=== PATIENT | male | born 1955 | race Caucasian/White ===

== ENCOUNTER 2025-04-17 15:13 | Outpatient (CLI) | payer MEDICARE, SELFPAY ==
--- OUTSIDE RECORDS SUMMARY | 2012-08-09 02:30 | XMS_ITS | Continuity of Care Document ---
Author Organization [facility] Address [address] [place] [address] Phone Care Team Providers Care Recovery Collector Name Role Phone Demond Weiner MD Unavailable Unavailable Allergies, Adverse Reactions, Alerts Substance Reaction Status Criticality No Known allergies Medications Medication Instructions Dosage Effective Dates (start - stop) Status Comments Aspirin 81 mg Chewable Tab chew 1 tablet (81MG) by ORAL route every day 81 MG - Active Fish Oil 1,200 mg-144 mg-216 mg Cap - Active Procedures Procedure Date Office/outpatient Visit, Est Office/outpatient Visit, Est Office/outpatient Visit, New Advance Directives Directive Yes / No Effective Date File Name Resuscitation Not Answered N/A N/A Life Support Not Answered N/A N/A Intubation Not Answered N/A N/A Antibiotics Not Answered N/A N/A IV Fluid Support Not Answered N/A N/A Tube Feed Not Answered N/A N/A Other Directive N/A N/A WARNING:The information contained in this section is historical and is provided for information only and does not constitute a legal document or any assurance that the information is still accurate. Please verify the information with the teran of the legal document before using it for clinical purposes. Encounters Encounter Description Practice Location Reason(s) For Visit Diagnoses Date Provider Providers Copied on Encounter [facility]pat [facility] [address], [place], [place], [id number], [place] tel:[phone] SEC Deepak BENITES Professional No Information 3 Regine Lagos. [address], [place], [id number], . tel:[phone] Referring Provider: Demondlivier Martinezmeagandominik Penn, [address] [facility] [place], [address] . tel:[phone] [place] [facility] [place] [address] [place] [address] [address], [place], [place], [id number], tel:[phone] SEC Deepak KAMARI Professional No Information 3 Regine Lagos. [address], [facility] [place], [id number], . tel:[phone] Referring Provider: Demond Penn, [address] [place] [place], [address] . tel:[phone] Office/outpat ient Visit, [facility], [address] [place] [address] [address], [place], [place], [id number], tel:[phone] SEC Deepak KAMARI Professional VITREOUS DEGENERATION 2 Regine Lagos. [address], [facility] [place], [id number], . tel:[phone] Referring Provider: Demond Penn, [address] [place], [address] . tel:[phone] Family History Family Member Type Diagnosis Age At Onset Grandmother Problem (finding) Diabetes mellitus Mother Problem (finding) Corneal Disease Payers Payer name Insurance type Covered libertarian ID Jackypushpa fajardo(s) Narciso [id number] Social History Type Description Quantity Date Captured Comments Alcohol Use Details Unknown Caffeine Use Details Unknown Tobacco Use Status No Information Smoking Status No Information Sex Male Chief Complaint And Reason For Visit No Information Reason For Referral Reason For Referral No Information History Of Present Illness Encounter Date Complaint History Of Prese nt Illness No Information Functional Status Date Functional Assessmen t No Information Instructions Date Instruction Additional Infor mation PVD ou - knows symptoms tear/det achment - prn Vitreous Detachment, OU - vision affected - will continue to monitor - No tears or detachments seen. Signs and symptoms of RD reviewed. Discussed with pt continuing symptoms, another retina exam needed. Will monitor. Related to Vitreous Detachment - 1 month w/dilation Related to Vitreous Detachment Vitreous Detachment, OU - vision affected - will continue to monitor - Discussed dx with pt in detail. Discussed risk of retina tear. Signs and symptoms of Retinal Detachment reviewed. No treatment needed. Will monitor. Related to Vitreous Detachment - 4-6 weeks w/ dilation Related to Vitreous Detachment Assessments Type Assessment Date No Information Patient Care Teams Name Effective Dates (start - stop) Status Members No Information
--- OUTSIDE RECORDS SUMMARY | 2025-04-17 15:40 | XMS_ITS | Clinical Summary ---
Author Organization [facility] Address [address] [place] [address] Care Team Providers Care Biodiesel Production Technician Name Role Phone Jimmy Cheek MD Primary Care Provider Alexandr Shafer MD Unavailable [phone] Oscar Islas MD Unavailable [phone] Miscellaneous, Not In File Unavailable Unava ilable Allergies Active Allergy Reactions Criticality Noted Date Comments Doxycycline Isosorbide Other (See comments),Headache,N ausea only Low 03/21/2025 Shakes Eemxivw-Jxh-Vlf Reductase Inhibitors Muscle pain Medium 04/20/2017 Multiple statins including lipitor, crestor... Medications zolpidem (AMBIEN) 10 mg tabletIndications :Sleep-Onset Insomnia Take 1 tablet (10 mg total) by mouth nightly as needed for sleep 90 tablet 1 07/04/19 25 Active loratadine (CLARITIN) 10 mg tablet Take 1 tablet (10 mg total) by mouth every morning Active calcium polycarbophil (FIBER-LAX ORAL) Take 1 capsule by mouth every morning Active acetaminophen 500 mg capsule Take 2 capsules (1,000 mg total) by mouth every 6 (six) hours as needed for pain or headaches 04/11/20 25 Active amiodarone (PACERONE) 200 mg tabletIndications :Prevention of A. Fib Post Cardio-Thoracic Surgery Take 2 tablets (400 mg total) by mouth 3 (three) times a day for 5 days, THEN 2 tablets (400 mg total) 2 (two) times a day for 7 days, THEN 2 tablets (400 mg total) daily for 14 days. 86 tablet 04/11/20 25 025 Active clopidogreL (PLAVIX) 75 mg tabletIndications :Thrombosis Prevention after PCI Take 1 tablet (75 mg total) by mouth daily 30 tablet 04/13/20 25 025 Active furosemide (LASIX) 40 mg tablet Take 1 tablet (40 mg total) by mouth daily for 7 days 7 tablet 04/12/20 25 025 Active methocarbamoL (ROBAXIN) 500 mg tabletIndications :Muscle Spasm Take 1 tablet (500 mg total) by mouth 3 (three) times a day as needed for muscle spasms for up to 7 days 21 tablet 04/11/20 25 025 Active metoprolol tartrate (LOPRESSOR) 25 mg immediate release tablet Take 1 tablet (25 mg total) by mouth 2 (two) times a day 60 tablet 04/11/20 25 025 Active potassium chloride ER (KLOR-CON) 20 mEq CR tablet Take 1 tablet (20 mEq total) by mouth daily 30 tablet 04/11/20 25 025 Active apixaban (ELIQUIS) 5 mg tabletIndications :atrial fibrillation Take 1 tablet (5 mg total) by mouth 2 (two) times a day 60 tablet 04/13/20 25 025 Active omega-3 fatty acids-fish oil 340-1,000 mg capsule otc 0 0 01/24/20 10 025 Discontin ued(Stop Taking at Discharge ) aspirin 81 mg tablet take 1 tablet (81MG) by oral route every day 0 05/24/20 12 025 Discontin ued(Stop Taking at Discharge ) tadalafiL (CIALIS) 20 mg tabletIndications :Erectile dysfunction due to arterial insufficiency Take 1 tablet (20 mg total) by mouth daily as needed for erectile dysfunction 10 tablet 11 07/22/19 23 025 Discontin ued(Stop Taking at Discharge ) celecoxib (CeleBREX) 200 mg capsule Take 1 capsule (200 mg total) by mouth 2 (two) times a day Note higher dose 180 capsule 3 07/04/19 25 025 Discontin ued(Stop Taking at Discharge ) lisinopriL (PRINIVIL,ZESTRIL ) 20 mg tablet Take 1 tablet (20 mg total) by mouth daily 100 tablet 3 07/04/19 25 025 Discontin ued(Stop Taking at Discharge ) metoprolol XL (TOPROL-XL) 100 mg 24 hr tablet Take 1 tablet (100 mg total) by mouth daily 100 tablet 3 07/04/19 25 025 Discontin ued(Stop Taking at Discharge ) isosorbide mononitrate ER (IMDUR) 30 mg 24 hr tablet Take 1 tablet (30 mg total) by mouth daily 30 tablet 11 02/08/20 025 Discontin ued(Other ) Active Problems Problem Noted Date Diagnosed Date S/P CABG x 3 04/05/2025 Coronary artery disease (CAD) excluded Coronary artery disease of n ative heart with stable angina pectoris 02/28/2025 Chest pain 02/09/2025 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 02/09/2025 Hx of colonic polyps 01/03/2025 Screening for colon cancer 01/03/2025 Pre-diabetes 06/26/2022 Assessment & Plan (01/03/2025 6:35 PM CDT): Orders: Hemoglobin A1c; Future Erectile dysfunction 07/17/2021 Benign prostatic hyperplasia 01/24/2021 Overview (01/24/2021): Added automatically from request for surgery [id number] Umbilical hernia without obstruction and without gangrene 03/20/2020 Overview (03/20/2020): Added automatically from request for surgery [id number] Assessment & Plan (01/03/2025 6:35 PM CDT): Assessment & Plan (03/22/2020 2:42 PM CDT): High risk hernia with bowel involvement. We discussed the surgical procedure, along with the risks, benefits, and post operative period. We also discussed symptoms to watch out for re- incarceration/strangulation and to call office. Will set up for open umbilical hernia surgery, patient to call to schedule. History of colonic polyps 12/19/2019 Overview (12/19/2019): Added automatically from request for surgery [id number] Family history of colon cancer 12/19/2019 Overview (12/19/2019): Added automatically from request for surgery [id number] Arthralgia of hip 11/10/2013 Benign hypertension 10/29/2013 Overview (09/17/2016): BENIGN HYPERTENSION Assessment & Plan (01/03/2025 6:35 PM CDT): Assessment & Plan (10/13/2023 9:16 AM CDT): Recommend DASH diet, heart-healthy lifestyle, exercise. Discussed the risks of hypertension. Assessment & Plan (04/09/2020 9:44 AM CDT): Recommend DASH diet, heart-healthy lifestyle, exercise. Discussed the risks of hypertension. Multiple-type hyperlipidemia 10/29/2013 Overview (09/18/2016): MIXED HYPERLIPIDEMIA Assessment & Plan (01/03/2025 6:35 PM CDT): Orders: Comprehensive metabolic panel; Future Lipid panel; Future Assessment & Plan (10/13/2023 9:16 AM CDT): Counseled on heart healthy diet exercise Resolved Problems Problem Noted Date Diagnosed Date Resolved Date Acute bronchitis due to Streptococcus 06/26/2022 10/13/2023 History of 2019 novel salvador virus disease (COVID-19) 06/24/2021 10/13/2023 Bilateral lower extremity edema 04/14/2020 04/17/2020 Assessment & Plan (04/16/2020 10:34 AM SUPERVISOR FRAME ASSEMBLY): Albumin 3.8 04/10 Will get LED and TTE while inpatient, if otherwise d/c ready can be deferred to outpatient ntproBNP 1075 on 04/14 Assessment & Plan (04/15/2020 12:34 PM SUPERVISOR FRAME ASSEMBLY): Albumin 3.8 04/10 Will get LED and TTE ntproBNP 1075 on 04/14 Will give lasix 20 IV Assessment & Plan (04/14/2020 1:36 PM CDT): Albumin 3.8 04/10 Will get LED and TTE COVID-19 04/13/2020 10/13/2023 Assessment & Plan (04/17/2020 9:43 AM SUPERVISOR FRAME ASSEMBLY): Asymptomatic Will ctm Quarantine instructions provided Assessment & Plan (04/15/2020 12:33 PM SUPERVISOR FRAME ASSEMBLY): Asymptomatic Will ctm Assessment & Plan (04/14/2020 1:21 PM CDT): Asymptomatic Will ctm Assessment & Plan (04/13/2020 12:59 PM CDT): Asymptomatic Will ctm Abscess 04/10/2020 06/24/2021 Overview (04/10/2020): Added automatically from request for surgery [id number] Assessment & Plan (04/17/2020 9:43 AM SUPERVISOR FRAME ASSEMBLY): 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 on 04/16 -abx for 14d total Assessment & Plan (04/15/2020 12:32 PM SUPERVISOR FRAME ASSEMBLY): Antibiotics changed to unasyn Culture with mixed organisms Assessment & Plan (04/14/2020 1:20 PM CDT): Antibiotics changed to unasyn Culture with mixed organisms Assessment & Plan (04/13/2020 12:57 PM CDT): Antibiotics changed to unasyn Assessment & Plan (04/12/2020 12:52 PM CDT): Cont current antibiotics vanc trough tonight Hypertension, essential 04/10/2020 04/3 Overview (04/12/2020): Added automatically from request for surgery [id number] Assessment & Plan (04/16/2020 10:35 AM SUPERVISOR FRAME ASSEMBLY): Cont metop and lisinopril Assessment & Plan (04/15/2020 12:33 PM SUPERVISOR FRAME ASSEMBLY): Cont metop restart lisinopril Assessment & Plan (04/14/2020 1:20 PM CDT): Cont metop Can restart lisinopril Assessment & Plan (04/13/2020 12:58 PM CDT): Cont metop Can restart lisinopril Assessment & Plan (04/12/2020 12:53 PM CDT): Cont metop Can restart lisinopril Mandibular abscess 04/10/2020 Overview (04/12/2020): Added automatically from request for surgery [id number] Assessment & Plan (04/17/2020 9:43 AM SUPERVISOR FRAME ASSEMBLY): Appreciate ENT recs Assessment & Plan (04/15/2020 12:33 PM SUPERVISOR FRAME ASSEMBLY): Dental extractions planned for 04/16- NPO @ [place] Assessment & Plan (04/14/2020 1:21 PM CDT): Dental extractions planned for 04/16- will need to be npo at midnight Assessment & Plan (04/13/2020 12:59 PM CDT): Dental extractions planned for 04/16- will need to be npo at midnight Urinary frequency 03/22/2020 10/13/2023 Assessment & Plan (03/22/2020 2:41 PM CDT): Will send referral to urology for urinary frequency and increased night time urination. Denies hematuria Umbilical hernia without obs truction or gangrene 03/20/2020 06/24/2021 Overview (04/09/2020): Added automatically from request for surgery [id number] History of colon polyps 12/26/2019 04 Overview (12/26/2019): Added automatically from request for surgery [id number] Encounter for screening colonoscopy 12/26/2019 10/13/2023 Overview (12/26/2019): Added automatically from request for surgery [id number] Seborrheic keratosis 07/01/2018 024 Assessment & Plan (07/08/2018 3:36 PM SUPERVISOR FRAME ASSEMBLY): Biopsy sites healing well, no complications or signs of infection reported or noted on exam Pathology discussed Benign reassurance given Will return PRN Assessment & Plan (07/01/2018 11:23 AM SUPERVISOR FRAME ASSEMBLY): Right superior hairline, right inferior hairline, right lateral forehead Biopsy/ies done per procedure note. Wound care reviewed with patient. Follow-up per path. Right non-suppurative otitis media 12/10/2017 06/20/2019 Assessment & Plan (12/10/2017 11:18 AM CDT): Appears to be an early otitis media. I recommended amoxicillin twice daily for 10 day course, Flonase nasal spray to assist with the middle ear inflammation and fluid buildup along with antihistamines [id number]. Close follow-up outpatient there is any worsening or little to no improvement in his otalgia/tinnitus Adiposity 05/30/2013 10/13/2023 Overview (09/17/2016): Obesity Soft tissue lesion of shoulder region 05/17/2010 10/13/2023 Overview (09/17/2016): Bursitis/tendonitis, shoulder Encounters Date Type Department Care Team Description 04/12/2025 SERGE IP Outreach [facility] Organization [address] [place] [id number] Sandrine Schulte LPN 04/04/2025 8:05 AM CDT Anesthesia Event [facility] Operating Room [address] [place] [id number] Yuri Zapata MD Becker, Scott C 04/04/2025 8:00 AM CDT - 04/04/2025 2:00 PM CDT Surgery [facility] [address] [place] [address] Alexandr Shafer MD Coronary Artery Bypass Graft X3 04/04/2025 7:00 AM CDT Ancillary Procedure [facility] [address] [place] [address] 04/04/2025 6:06 AM CDT - 04/11/2025 4:00 PM CDT Hospital Encounter [address] [address] Alexandr Shafer MD 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 (Primary Dx); Coronary artery disease (CAD) excluded; 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; S/P CABG x 3 Discharge Disposition: Discharge to home, home health skilled care 03/21/2025 1:07 PM CDT - 03/21/2025 11:59 PM CDT Hospital Encounter [facility] Non-invasive Cardiac Diagnostic Testing [address] [place] [id number] 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 Discharge Disposition: Discharge to home or self care 03/21/2025 10:45 AM CDT Pre-Admission Testing [facility] Pre Anesthesia Testing [address] [place] [id number] Pre-op testing (Primary Dx); 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, unspecified vessel or lesion type; Shortness of breath; Other disorder of circulatory system; Chronic anticoagulation 03/21/2025 10:29 AM CDT - 03/21/2025 11:59 PM CDT Hospital Encounter [facility] Vascular Lab [address] [place] [address] Varicose veins of right lower extremity, unspecified whether complicated Discharge Disposition: Discharge to home or self care 03/21/2025 10:28 AM CDT - 03/21/2025 11:59 PM CDT Hospital Encounter [facility] [address] [place] [address] 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 [id number] [place] [address] [address] [place] [phone] Alexandr Shafer MD Coronary artery disease involving ruby coronary artery of ruby heart without angina pectoris (Primary Dx) 02/28/[address] 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 (Primary Dx); Varicose veins of right lower extremity, unspecified whether complicated 02/20/2025 11:30 AM CDT - 02/20/2025 12:35 PM CDT Surgery [facility] Cardiac Catheterization [address] [place] [address] Oscar Islas MD LEFT HEART CATHETERIZATION WITH CORONARY ANGIOGRAPHY AND WITH OR WITHOUT LEFT VENTRICULOGRAM [id number] 02/20/2025 10:28 AM CDT - 02/20/2025 3:33 PM CDT Hospital Encounter [facility] Cardiac Catheterization [address] [place] [address] Oscar Islas MD 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 (Primary Dx); Chest pain, unspecified type Discharge Disposition: Discharge to home or self care 02/10/2025 10:05 AM CDT Lab [facility] [address] [place], [place] Chest pain, unspecified type; 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 02/09/2025 Telephone [facility] [address] [facility] [address] [place] [id number] Ella Shrestha MA 02/07/2025 1:30 PM CDT Office Visit [facility] at [address] [place] [address] Oscar Islas MD 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 (Primary Dx) 02/07/2025 Orders Only [facility] at [address] [place] [phone] Oscar Islas MD Atrial fibrillation, unspecified type (HCC) (Primary Dx) from Last 3 Months Immunizations Immunization Administration Dates Next Due Influenza, Quad, Adjuvantate d, Intramuscular 04/27/2023,04/03/2021 Influenza, Quadrivalent, Melba l Culture-based MDCK, Preservative Free, Antibiotic Free, Intramuscular 04/10/2022 Influenza, Quadrivalent, Hig h Dose, Preservative Free, Intrr 03/13/2020 Influenza, Quadrivalent, Spl it, Preservative Free, Intradermal 04/28/2016,06/11/2015 Influenza, Quadrivalent, Spl it, Preservative Free, Intramuscular 03/16/2018 Influenza, Split 05/30/2013, 2,05/19/2011,05/17 Influenza, Trivalent, High D ose, Split, Preservative Free, Intramuscular 04/11/2025,03/09/2019,03/10/2017 Influenza, Trivalent, IM (MDV) 05/30/2013 Influenza, Trivalent, Recomb inant, Egg Free, Preservative Free, Antibiotic Free, IM (FLUBLOK) 06/05/2014,06/05/2014 Influenza, Unspecified 04/20/2024 Pneumococcal Conjugate Pcv20 06/29/2023 Pneumococcal, Unspecified 06/26/2022(Deferred: P atient Refused) Tdap 03/05/2009 Varicella 04/19/2017 ZOSTER Recombinant 07/25/2019,03/15/2019 Surgical History Surgery Date Site/Laterality Comments BACK SURGERY Back Surgery BACK SURGERY 06/15/1993 - 06/14/1994 Back surgery SHOULDER SURGERY 06/15/2010 - 06/14/2011 Shoulder Surgery HIP ARTHROPLASTY Right Hip replacement COLONOSCOPY 01/13/2015 - 02/12/2015 JOINT REPLACEMENT HEMORRHOID SURGERY EYE SURGERY lasik ARM SURGERY Left BRAIN SURGERY CARDIAC CATHETERIZATION 02/20/2025 N/A Procedure: LEFT HEART CATHETERIZATION WITH CORONARY ANGIOGRAPHY AND WITH OR WITHOUT LEFT VENTRICULOGRAM [id number]; Surgeon: Oscar Islas MD; Location: [facility]; Service: Cardiovascular; Laterality: N/A; CARDIAC CATHETERIZATION 02/20/2025 N/A Procedure: Coronary Flow Velocity (CFR) / Instantaneous Flow Velocity (IFR), 1st Vessel; Surgeon: Oscar Islas MD; Location: [facility]; Service: Cardiovascular; Laterality: N/A; CARDIAC CATHETERIZATION 02/20/2025 N/A Procedure: Coronary Flow Velocity (CFR) / Instantaneous Flow Velocity (IFR), Ea Addtn'l Vessel; Surgeon: Oscar Islas MD; Location: [facility]; Service: Cardiovascular; Laterality: N/A; CORONARY ARTERY BYPASS GRAFT 04/04/2025 Chest/N/A Procedure: Coronary Artery Bypass Graft X3; Surgeon: Alexandr Shafer MD; Location: OPERATING ROOM; Service: Cardiothoracic; Laterality: N/A; Medical History Medical History Date Comments Injury of head 1982 Head injury Hypertension Hypertension Hx Other Medical 2009 Rotator cuff Hx Other Medical Arm surgery Ear problems Colon polyp Hyperlipidemia Erectile dysfunction Urinary incontinence Coronary artery disease Claustrophobia BPH (benign prostatic hyperplasia) Family History Medical History Relation Name Comments Other Brother 2 Alive and well; high blood pressure Hearing loss Father Other Father Alive and well; heart disease Colon cancer Maternal Grandfather Hearing loss Maternal Grandmother Other Mother Alive and well; Cancer Other 1 Family history of Cancer; Diabetes Other 2 Family history of Diabetes mellitus; Heart disease Other 3 Family history of Heart disease; Hypertension Other 4 Family history of Hypertension; Anesthesia problems Neg Hx Relation Name Status Comments Brother 1 Alive Brother 2 Father Maternal Grandfather Maternal Grandmother Mother Other 1 Other 2 Other 3 Other 4 Other 5 familial hyperl ipidemia Social History Tobacco Use Types Packs/Day Years Used Date Smoking Tobacco: Never Smokeless Tobacco: Never Tobacco Cessation:Counseling Given: Not Answered Alcohol Use Standard Drinks/Week Comments Yes 2 (1 standard drink = 0.6 oz pur e alcohol) Social Connection and Isolation Panel Answer Date Recorded In a typical week, how many times do you talk on the phone with family, friends, or neighbors? Patient declined 04/19/2020 How often do you get togethe r with friends or relatives? Patient declined 04/19/2020 How often do you attend anglican or alevism serv ices? Patient declined 04/19/2020 Do you belong to any clubs o r organizations such as anglican groups, unions, fraternal or athletic groups, or school groups? Patient declined 04/19/2020 How often do you attend meet ings of the clubs or organizations you belong to? Patient declined 04/19/2020 Are you , , di vorced, , never , or living with a partner? 04/19/2020 Overall Financial Resource Strain (CARDIA) Answe r Date Recorded How hard is it for you to pa y for the very basics like food, housing, medical care, and heating? Not hard at all 04/19/2020 PHQ-2 Answer Date Recorded PHQ-2 Total Score (If total score is 3 or more points, staff should administer the PHQ-9) 0 01/03/2025 PRAPARE - Transportation Answer Date Re corded In the past 12 months, has l ack of transportation kept you from medical appointments or from getting medications? No 02/13 In the past 12 months, has l ack of transportation kept you from meetings, work, or from getting things needed for daily living? No 03/01/2021 Social Connection and Isolation Panel Answer Date Recorded In a typical week, how many times do you talk on the phone with family, friends, or neighbors? More than three times a week 04/06/2025 How often do you get togethe r with friends or relatives? More than three times a week 04/06/2025 How often do you attend chur ch or alevism services? Never 04/06/2025 Do you belong to any clubs o r organizations such as anglican groups, unions, fraternal or athletic groups, or school groups? No 04/06/2025 How often do you attend meet ings of the clubs or organizations you belong to? Never 04/06/2025 Are you , , di vorced, , never , or living with a partner? 04/06/2025 AUDIT-C Answer Date Recorded Q1: How often do you have a drink containing alc ohol? 2-3 times a week 04/04/2025 Q2: How many drinks containi ng alcohol do you have on a typical day when you are drinking? 1 or 2 04/04/2025 Q3: How often do you have si x or more drinks on one occasion? Monthly 04/04/2025 Overall Financial Resource Strain (CARDIA) Answe r Date Recorded How hard is it for you to pa y for the very basics like food, housing, medical care, and heating? Not hard at all 04/06/2025 Hunger Vital Sign Answer Date Recorded Within the past 12 months, y ou worried that your food would run out before you got the money to buy more. Never true 04/06/20 25 Within the past 12 months, t he food you bought just didn't last and you didn't have money to get more. Never true 04/06/2025 PRAPARE - Transportation Answer Date Re corded In the past 12 months, has l ack of transportation kept you from medical appointments or from getting medications? No 03/16 In the past 12 months, has l ack of transportation kept you from meetings, work, or from getting things needed for daily living? No 04/06/2025 Housing Stability Vital Sign Answer Ladarius e Recorded In the last 12 months, was t here a time when you were not able to pay the mortgage or rent on time? No 04/06/2025 In the past 12 months, how m any times have you moved where you were living? 0 04/06/2025 At any time in the past 12 m [facility], were you homeless or living in a long term (including now)? No 04/06/2025 [facility] Utilities Answer Date Recorded In the past 12 months has th e [email or web address], gas, oil, or water company threatened to shut off services in your home? No 04/06/2025 Personal Safety Answer Date Recorded Have you ever been in or are you currently in a harmful physical or emotional relationship or is someone making you feel afraid or unsafe? Denies 04/04/2025 Sex and Gender Information Value Date Recorded Sex Assigned at Not on file Legal Sex Male 1:43 PM [employer]PERVIS[employer] Gender Identity Not on file Sexual Orientation Not on file Last Filed Vital Signs Vital Sign Reading Time Taken Comments Blood Pressure 120/85 04/11/2025 11:49 AM CDT Pulse 93 04/11/2025 12:00 PM CDT Temperature 36.3 C (97.3 F) 04/11/2025 11:49 AM CDT Respiratory Rate 17 04/11/2025 11:4 9 AM CDT Oxygen Saturation 97% 04/11/2025 11: 49 AM CDT Inhaled Oxygen Concentration - - Weight 135.9 kg (299 lb 9.7 oz) 04/09/2025 2:35 AM CDT Height 188 cm (6' 2.02) 04/05/2025 10: 41 AM CDT Body Mass Index 38.45 04/05/2025 10:41 AM CDT Plan of Treatment Upcoming Encounters Date Type Department Care Team (Late st Contact Info) Description 08/25/2025 8:00 AM CDT Hospital Encounter [address] [address] Jeni Burns MD [address] [place] [address] [place] [address] 08/25/2025 8:00 AM CDT - 08/25/2025 8:30 AM CDT Surgery [address] [address] Jeni Burns MD [address] [facility] [address] [address] [place], [place] [address] [address] COLONOSCOPY Scheduled Procedures Name Priority Associated Diagnoses Date/Ti me COLONOSCOPY Hx of colonic polyps Screening for colon cancer 08/25/2025 8:00 AM CDT Health Maintenance Due Date Last Done Comments Hepatitis B Screening 12/16/1973 Covid-19 Vaccine ( season) 2025 04/27/2023, 04/10/2022, 05/28/2021, Additional history exists Colon Cancer Screening-Colonoscopy 02/21/2025 02/22/2020, 01/24/2015, 01/24/2015, Additional history exists Prostate Cancer Screening-PSA 06/27/2025 06/27/2024, 06/16/2023, 06/17/2022, Additional history exists Well Visit 65+ 07/04/2025 07/04/2024, 06/15, 06/26/2022, Additional history exists DTaP/Tdap/Td Vaccine (2 - Td or Tdap) 12/19/2025 03/05/2009 Postponed from 03/05/2019 (Insurance / Financial) Depression Screening 01/03/2026 01/03/2025, 07/04/2024, 10/13/2023, Additional history exists Fall Risk Assessment 04/11/2026 04/11/2025, 01/03/2025, 07/04/2024, Additional history exists Hepatitis C Screening Completed 06/01/2017, 017 Zoster Vaccine Completed 07/25/2019, 03/15/2019 Colon Cancer Screening-CT Colonography Discontinued 02/22/2020, 01/24/2015, 01/24/2015, Additional history exists Colon Cancer Screening-DNA Stool Discontinued 02/22/2020, 01/24/2015, 01/24/2015, Additional history exists Colon Cancer Screening-FIT Discontinued 02/21, 01/24/2015, 01/24/2015, Additional history exists Colon Cancer Screening-Sigmoidoscopy Discontinued 02/22/2020, 01/24/2015, 01/24/2015, Additional history exists Pneumococcal vaccine 65+ Completed 06/29/2023 Influenza Vaccine Completed 04/11/2025, , 04/27/2023, Additional history exists Medical Devices Implanted Type Area Railroad Purchasing Agent Device Identifier Shelf Expiration Date Model / Serial / Lot [employer]/C R Bard [id number] [address]ralex [address] Sepra Sorbaflex 1.7in [facility] Bioresorbable - [id number] Implanted:Qty: 1 on 07/16/2020 by Emmanuel Quiñonez MD at [facility] N/A: [employer]mb[employer]/C R 02/09/2022 [id number] / / [id number] Procedures Procedure Name Priority Date/Time Associated Diagnosis Comments POCT GLUCOSE DEVICE Routine 04/11/2025 12:30 PM CDT POCT GLUCOSE DEVICE Routine 04/11/2025 7 :38 AM CDT XR CHEST 1 VIEW IP Routine 04/11/2025 7:03 AM CDT EGFR Routine 04/11/2025 5:23 AM CDT HEPATIC FUNCTION PANEL Routine 04/11/2025 5:23 AM CDT APTT Routine 04/11/2025 5:23 AM CDT PROTIME-INR Routine 04/11/2025 5:23 AM CDT BASIC METABOLIC PANEL Routine 04/11/2025 5:23 AM CDT CBC WITHOUT DIFFERENTIAL Routine 04/11/2025 5:23 AM CDT POCT GLUCOSE DEVICE Routine 04/10/2025 8 :05 PM CDT POCT GLUCOSE DEVICE Routine 04/10/2025 5 :24 PM CDT POCT GLUCOSE DEVICE Routine 04/10/2025 12:37 PM CDT POCT GLUCOSE DEVICE Routine 04/10/2025 8 :09 AM CDT XR CHEST 1 VIEW IP Routine 04/10/2025 6:49 AM CDT EGFR Routine 04/10/2025 4:22 AM CDT MAGNESIUM Routine 04/10/2025 4:22 AM CDT BASIC METABOLIC PANEL Routine 04/10/2025 4:22 AM CDT CBC WITHOUT DIFFERENTIAL Routine 04/10/2025 4:22 AM CDT POCT GLUCOSE DEVICE Routine 04/09/2025 8 :12 PM CDT POCT GLUCOSE DEVICE Routine 04/09/2025 5 :45 PM CDT POCT GLUCOSE DEVICE Routine 04/09/2025 1 :59 PM CDT POCT GLUCOSE DEVICE Routine 04/09/2025 9 :13 AM CDT XR CHEST 1 VIEW IP Routine 04/09/2025 6:22 AM CDT EGFR Routine 04/09/2025 6:17 AM CDT MAGNESIUM Routine 04/09/2025 6:17 AM CDT BASIC METABOLIC PANEL Routine 04/09/2025 6:17 AM CDT CBC WITHOUT DIFFERENTIAL Routine 04/09/2025 6:17 AM CDT POCT GLUCOSE DEVICE Routine 04/09/2025 2 :20 AM CDT POCT GLUCOSE DEVICE Routine 04/08/2025 9 :26 PM CDT POCT GLUCOSE DEVICE Routine 04/08/2025 6 :03 PM CDT POCT GLUCOSE DEVICE Routine 04/08/2025 12:31 PM CDT POCT GLUCOSE DEVICE Routine 04/08/2025 7 :41 AM CDT XR CHEST 1 VIEW IP Routine 04/08/2025 6:40 AM CDT EGFR Routine 04/08/2025 6:11 AM CDT MAGNESIUM Routine 04/08/2025 6:11 AM CDT BASIC METABOLIC PANEL Routine 04/08/2025 6:11 AM CDT CBC WITHOUT DIFFERENTIAL Routine 04/08/2025 6:11 AM CDT POCT GLUCOSE DEVICE Routine 04/08/2025 2 :31 AM CDT POCT GLUCOSE DEVICE Routine 04/07/2025 9 :37 PM CDT POCT GLUCOSE DEVICE Routine 04/07/2025 5 :06 PM CDT POCT GLUCOSE DEVICE Routine 04/07/2025 12:41 PM CDT XR KUB IP Routine 04/07/2025 10:18 AM CDT POCT GLUCOSE DEVICE Routine 04/07/2025 7 :57 AM CDT CRITICAL CARE Routine 04/07/2025 7:25 AM CDT Coronary artery disease (CAD) excluded XR CHEST 1 VIEW IP Routine 04/07/2025 4:17 AM CDT EGFR Routine 04/07/2025 2:09 AM CDT CALCIUM,IONIZED, WHOLE BLOOD Timed 04/07/2025 2:09 AM CDT MAGNESIUM Routine 04/07/2025 2:09 AM CDT BASIC METABOLIC PANEL Routine 04/07/2025 2:09 AM CDT CBC WITHOUT DIFFERENTIAL Routine 04/07/2025 2:09 AM CDT POCT GLUCOSE DEVICE Routine 04/06/2025 8 :01 PM CDT CRITICAL CARE Routine 04/06/2025 7:34 PM CDT S/P CABG x 3 POCT GLUCOSE DEVICE Routine 04/06/2025 4 :58 PM CDT EGFR Routine 04/06/2025 2:46 PM CDT CBC WITHOUT DIFFERENTIAL Timed 04/06/2025 2:46 PM CDT CALCIUM,IONIZED, WHOLE BLOOD Timed 04/06/2025 2:46 PM CDT MAGNESIUM Timed 04/06/2025 2:46 PM CDT BASIC METABOLIC PANEL Routine 04/06/2025 2:46 PM CDT POCT GLUCOSE DEVICE Routine 04/06/2025 12:03 PM CDT CRITICAL CARE Routine 04/06/2025 9:11 AM CDT Coronary artery disease (CAD) excluded POCT GLUCOSE DEVICE Routine 04/06/2025 7 :09 AM CDT POCT GLUCOSE DEVICE Routine 04/06/2025 5 :06 AM CDT XR CHEST 1 VIEW IP Routine 04/06/2025 3:59 AM CDT EGFR Routine 04/06/2025 3:03 AM CDT MAGNESIUM Routine 04/06/2025 3:03 AM CDT BASIC METABOLIC PANEL Routine 04/06/2025 3:03 AM CDT CBC WITHOUT DIFFERENTIAL Routine 04/06/2025 3:03 AM CDT POCT GLUCOSE DEVICE Routine 04/06/2025 3 :00 AM CDT POCT GLUCOSE DEVICE Routine 04/06/2025 1 :37 AM CDT POCT GLUCOSE DEVICE Routine 04/06/2025 12:48 AM CDT POCT GLUCOSE DEVICE Routine 04/05/2025 11:42 PM CDT EGFR Routine 04/05/2025 10:47 PM CDT MAGNESIUM Routine 04/05/2025 10:47 PM CDT BASIC METABOLIC PANEL Routine 04/05/2025 10:47 PM CDT POCT GLUCOSE DEVICE Routine 04/05/2025 10:38 PM CDT POCT GLUCOSE DEVICE Routine 04/05/2025 9 :38 PM CDT POCT GLUCOSE DEVICE Routine 04/05/2025 8 :35 PM CDT CRITICAL CARE Routine 04/05/2025 7:38 PM CDT S/P CABG x 3 POCT GLUCOSE DEVICE Routine 04/05/2025 7 :34 PM CDT POCT GLUCOSE DEVICE Routine 04/05/2025 6:37 PM CDT POCT GLUCOSE DEVICE Routine 04/05/2025 5 :20 PM CDT POCT GLUCOSE DEVICE Routine 04/05/2025 4 :42 PM CDT POCT GLUCOSE DEVICE Routine 04/05/2025 3 :35 PM CDT CALCIUM,IONIZED, WHOLE BLOOD STAT 04/05/2025 2:42 PM CDT BLOOD GAS, ARTERIAL STAT 04/05/2025 2 :42 PM CDT EGFR Timed 04/05/2025 2:33 PM CDT CBC WITHOUT DIFFERENTIAL Timed 04/05/2025 2:33 PM CDT BASIC METABOLIC PANEL Timed 04/05/2025 2:33 PM CDT POCT GLUCOSE DEVICE Routine 04/05/2025 2 :24 PM CDT POCT GLUCOSE DEVICE Routine 04/05/2025 1 :21 PM CDT POCT GLUCOSE DEVICE Routine 04/05/2025 12:16 PM CDT POCT GLUCOSE DEVICE Routine 04/05/2025 11:31 AM CDT POCT GLUCOSE DEVICE Routine 04/05/2025 10:11 AM CDT CRITICAL CARE Routine 04/05/2025 9:59 AM CDT Coronary artery disease (CAD) excluded ECG 12-LEAD Routine 04/05/2025 9:17 AM CDT POCT GLUCOSE DEVICE Routine 04/05/2025 7 :20 AM CDT XR CHEST 1 VIEW IP Routine 04/05/2025 6:14 AM CDT POCT GLUCOSE DEVICE Routine 04/05/2025 6 :02 AM CDT POCT GLUCOSE DEVICE Routine 04/05/2025 5 :03 AM CDT POCT GLUCOSE DEVICE Routine 04/05/2025 3 :58 AM CDT EGFR Routine 04/05/2025 3:55 AM CDT DIFFERENTIAL AUTO Routine 04/05/2025 3:5 5 AM CDT MAGNESIUM Routine 04/05/2025 3:55 AM CDT BASIC METABOLIC PANEL Routine 04/05/2025 3:55 AM CDT CBC WITH AUTO DIFFERENTIAL Routine 04/05/2025 3:55 AM CDT POCT GLUCOSE DEVICE Routine 04/05/2025 2 :44 AM CDT POCT GLUCOSE DEVICE Routine 04/05/2025 1 :40 AM CDT POCT GLUCOSE DEVICE Routine 04/05/2025 12:28 AM CDT POCT GLUCOSE DEVICE Routine 04/04/2025 11:23 PM CDT POCT GLUCOSE DEVICE Routine 04/04/2025 10:24 PM CDT EXTUBATION Routine 04/04/2025 10:01 PM CDT BLOOD GAS, ARTERIAL STAT 04/04/2025 9 :45 PM CDT POCT GLUCOSE DEVICE Routine 04/04/2025 9 :14 PM CDT CRITICAL CARE Routine 04/04/2025 8:15 PM CDT 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 POCT GLUCOSE DEVICE Routine 04/04/2025 8 :11 PM CDT POCT GLUCOSE DEVICE Routine 04/04/2025 7 :04 PM CDT POCT GLUCOSE DEVICE Routine 04/04/2025 6 :02 PM CDT EGFR STAT 04/04/2025 5:32 PM CDT BASIC METABOLIC PANEL STAT 04/04/2025 5:32 PM CDT CALCIUM,IONIZED, WHOLE BLOOD STAT 04/04/2025 5:32 PM CDT CBC WITHOUT DIFFERENTIAL Timed 04/04/2025 5:32 PM CDT BLOOD GAS, ARTERIAL Timed 04/04/2025 5 :32 PM CDT BLOOD GAS, ARTERIAL STAT 04/04/2025 4 :31 PM CDT POCT GLUCOSE DEVICE Routine 04/04/2025 4 :17 PM CDT TRANSFUSE PLATELETS Timed 04/04/2025 3 :57 PM CDT PREPARE PLATELETS STAT 04/04/2025 2:3 9 PM CDT XR CHEST 1 VIEW Critical/Life- Threatening 04/04/2025 2:20 PM CDT MAGNESIUM STAT 04/04/2025 2:08 PM CDT CALCIUM,IONIZED, WHOLE BLOOD STAT 04/04/2025 2:08 PM CDT EGFR STAT 04/04/2025 2:06 PM CDT PHOSPHORUS STAT 04/04/2025 2:06 PM CDT APTT STAT 04/04/2025 2:06 PM CDT PROTIME-INR STAT 04/04/2025 2:06 PM CDT CBC WITHOUT DIFFERENTIAL Timed 04/04/2025 2:06 PM CDT BLOOD GAS, ARTERIAL Timed 04/04/2025 2 :06 PM CDT BASIC METABOLIC PANEL STAT 04/04/2025 2:06 PM CDT POCT GLUCOSE DEVICE Routine 04/04/2025 1 :49 PM CDT CRITICAL CARE Routine 04/04/2025 1:32 PM CDT 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 POC BLOOD GAS AND CHEMISTRIES, ARTERIAL Routine 04/04/2025 1:05 PM CDT POC BLOOD GAS AND CHEMISTRIES, ARTERIAL Routine 04/04/2025 12:20 PM CDT POCT ACTIVATED CLOTTING TIME, HIGH RANGE Routine 04/04/2025 12:19 PM CDT POC BLOOD GAS AND CHEMISTRIES, ARTERIAL Routine 04/04/2025 11:54 AM CDT POC BLOOD GAS AND CHEMISTRIES, ARTERIAL Routine 04/04/2025 11:42 AM CDT POCT ACTIVATED CLOTTING TIME, HIGH RANGE Routine 04/04/2025 11:39 AM CDT PREPARE RBC STAT 04/04/2025 11:37 AM CDT PLATELET COUNT STAT 04/04/2025 11:37 AM CDT POCT ACTIVATED CLOTTING TIME, HIGH RANGE Routine 04/04/2025 11:15 AM CDT POC BLOOD GAS AND CHEMISTRIES, ARTERIAL Routine 04/04/2025 11:00 AM CDT POC BLOOD GAS AND CHEMISTRIES, ARTERIAL Routine 04/04/2025 10:31 AM CDT POCT ACTIVATED CLOTTING TIME, HIGH RANGE Routine 04/04/2025 10:30 AM CDT ANESTHESIA CRISTA Routine 04/04/2025 10:21 AM CDT POC BLOOD GAS AND CHEMISTRIES, ARTERIAL Routine 04/04/2025 10:00 AM CDT POCT ACTIVATED CLOTTING TIME, HIGH RANGE Routine 04/04/2025 9:57 AM CDT POC BLOOD GAS AND CHEMISTRIES, ARTERIAL Routine 04/04/2025 8:35 AM CDT POCT ACTIVATED CLOTTING TIME, HIGH RANGE Routine 04/04/2025 8:32 AM CDT MD AN CENTRAL LINE MULTI LUMEN Routine 04/04/2025 8:26 AM CDT ANESTHESIA CENTRAL VENOUS LINE PLACEMENT Routine 04/04/2025 8:26 AM CDT ANESTHESIA ARTERIAL LINE PLACEMENT Routine 04/04/2025 8:23 AM CDT MD AN ELECTIVE ENDOTRACHEAL AIRWAY Routine 04/04/2025 8:22 AM CDT CORONARY ARTERY BYPASS GRAFT. 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 US VEIN MAPPING DUPLEX LOWER EXTREMITY RIGHT Schedule Routine, Read Routine (OP Routine) 03/21/2025 1:05 PM CDT Varicose veins of right lower extremity, unspecified whether complicated CT CHEST WO CONTRAST Schedule Routine, Read Routine (OP Routine) 03/21/2025 12:44 PM CDT 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 EGFR Routine 03/21/2025 12:04 PM CDT Pre-op testing DIFFERENTIAL AUTO Routine 03/21/2025 12:04 PM CDT Pre-op testing TYPE AND SCREEN Routine 03/21/2025 12:04 PM CDT Pre-op testing CBC WITH AUTO DIFFERENTIAL Routine 03/21/2025 12:04 PM CDT Pre-op testing BASIC METABOLIC PANEL Routine 03/21/2025 12:04 PM CDT Pre-op testing PROTIME-INR Routine 03/21/2025 12:04 PM CDT Pre-op testing Other disorder of circulatory system APTT Routine 03/21/2025 12:04 PM CDT Pre-op testing Chronic anticoagulation URINALYSIS AND REFLEX TO MICROSCOPIC AND CULTURE Routine 03/21/2025 12:04 PM CDT Pre-op testing ECG 12-LEAD Routine 03/21/2025 11:46 AM CDT 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, unspecified vessel or lesion type CORONARY FLOW VELOCITY (CFR) / INSTATANEOUS FLOW VELOCITY (IFR), EA ADDTN'L VESSEL Routine 02/20/2025 12:58 PM CDT Chest pain, unspecified type 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 CORONARY FLOW VELOCITY (CFR) / INSTATANEOUS FLOW VELOCITY (IFR), 1ST VESSEL Routine 02/20/2025 12:58 PM CDT Chest pain, unspecified type 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 LEFT HEART CATHETERIZATION WITH CORONARY ANGIOGRAPHY AND WITH AND WITHOUT LEFT VENTRICULOGRAM Routine 02/20/2025 12:58 PM CDT Chest pain, unspecified type 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 EGFR Routine 02/10/2025 10:07 AM CDT Chest pain, unspecified type 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 DIFFERENTIAL AUTO Routine 02/10/2025 10:07 AM CDT Chest pain, unspecified type 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 CBC WITH AUTO DIFFERENTIAL Routine 02/10/2025 10:07 AM CDT Chest pain, unspecified type 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 BASIC METABOLIC PANEL Routine 02/10/2025 10:07 AM CDT Chest pain, unspecified type 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 PROTIME-INR Routine 02/10/2025 10:07 AM CDT Chest pain, unspecified type 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 ECG 12-LEAD Routine 02/07/2025 2:01 PM CDT Atrial fibrillation, unspecified type (HCC) PSA SCREEN Routine 06/27/2024 7:52 AM [employer] Urine frequency COLONOSCOPY 02/22/2020 7:08 AM CDT HEPATITIS C AB REFLEX RNA QUANT PCR Routine 06/01/2017 7:08 AM [employer] from Last 3 Months or Most Recently Relevant to Health Maintenance Results * POCT glucose (04/11/2025 12:30 PM CDT) Glucose, POC 153 70 - 199 mg/dL Blood 04/11/2025 12:3 0 PM CDT 04/11/2025 12:30 PM CDT us Alexandr Shafer MD LAB POCT ORDERABLES - DEVICE Final Result Performing Organization Address City/[facility] Co de Phone Number DELPHINELUIS [phone] [place] [address] * POCT glucose (04/11/2025 7:38 AM CDT) Glucose, POC 118 70 - 199 mg/dL Blood 04/11/2025 7:38 AM CDT 04/11/2025 7:38 AM CDT Alexandr Shafer MD LAB POCT ORDERABLES - DEVICE Final Result Performing Organization Address City/[facility]/ZIP Co de Phone Number MICHAEL [phone] [place] [address] * XR Chest 1 View - Portable - in AM (04/11/2025 7:03 AM CDT) Anatomical Region Laterality Modality Body, Chest N/A Computed Radiogr aphy 04/11/2025 7:48 AM CDT Impressions 04/11/2025 7:48 AM CDT There is a right internal jugular central venous catheter in place with tip in the superior vena cava. The lung volumes are small with scattered areas of atelectasis. There is no definite pleural fluid collection or definite pneumothorax. The cardiomediastinal silhouette is normal in caliber. The patient has undergone prior median sternotomy. Electronically signed by: Mary Mcgraw MD Narrative 04/11/2025 7:48 AM CDT EXAMINATION: XR CHEST 1 VIEW Procedure Note Mary Mcgraw MD - 04/11/2025 EXAMINATION: XR CHEST 1 VIEW IMPRESSION: There is a right internal jugular central venous catheter in place with tip in the superior vena cava. The lung volumes are small with scattered areas of atelectasis. There is no definite pleural fluid collection or definite pneumothorax. The cardiomediastinal silhouette is normal in caliber. The patient has undergone prior median sternotomy. Electronically signed by: Mary Mcgraw MD us Alexandr Shafer MD IMG XR PROCEDURES Final Resu lt * eGFR (04/11/2025 5:23 AM CDT) eGFR 68 >=60 mL/min/1. 73 m2 Comment: Interpretive Data Reference Interval Normal >/= 90 mL/min/1.73m2 Mildly decreased* 60 - 89 mL/min/1.73m2 Mildly to moderately decreased 45 - 59 mL/min/1.73m2 Moderately to severely decreased 30 - 44 mL/min/1.73m2 Severely decreased 15 - 29 mL/min/1.73m2 Kidney Failure < 15 mL/min/1.73m2 *Relative to young adult level Estimated glomerular filtration rate is determined by the 2020 CKD-EPI equation recommended by the National Kidney Foundation (A Unifying Approach to GFR Estimation: Recommendations of the NKF-ASK Task Force on Reassessing the Inclusion of Race in Diagnosing Kidney Disease, JASN 2020). The CKD-EPI equation should not be used for patients with unstable renal function and has not been validated in children and those over 70. Current interpretive data was last reviewed 2021. Blood 04/11/2025 5:23 AM CDT 04/11/2025 5:26 AM CDT Sejal Minerva Oxford ACUPRESSURE THERAPIST LAB BLOOD ORDERABLES Final Result Performing Organization Address [facility] Co de Phone Number [facility] [phone] [facility] [place] [address] * aPTT (04/11/2025 5:23 AM CDT) aPTT 32 26 - 38 sec Comment: Interpretive Data Heparin therapeutic range: 66.0 - 100.0 seconds. Range based on correlation with therapeutic heparin activity range of 0.3 - 0.7 Units/mL. Current interpretive data was last revised on 2023. Blood 04/11/2025 5:23 AM CDT 04/11/2025 5:25 AM CDT Jamari Mo ACUPRESSURE THERAPIST LAB BLOOD ORDERABLES Final Result Performing Organization Address [facility] de Phone Number [facility] [phone] [address] [facility] [place] [address] * (ABNORMAL) Protime-INR (04/11/2025 5:23 AM CDT) PT 14.7(H) 10.2 - 13.5 sec INR 1.31(H) 0.90 - 1.20 MICHAEL Comment: Interpretive data Oral anticoagulant therapeutic ranges: Venous thromboembolism prophylaxis or treatment: 2.0-3.0 CARDIOLOGY Standard range: 2.0-3.0 High-intensity range: 2.5-3.5 Refer to indication-specific guidelines for appropriate target ranges for prosthetic heart valve replacement. Current interpretive data was last revised on 2019. Blood 04/11/2025 5:23 AM CDT 04/11/2025 5:25 AM CDT Jamari Mo ACUPRESSURE THERAPIST LAB BLOOD ORDERABLES Final Result Performing Organization Address City/[facility]/ZIP Co de Phone Number MICHAEL DILL [address] [place] [address] * (ABNORMAL) CBC without differential (04/11/2025 5:23 AM CDT) WBC 11.90(H) 3.80 - 9.90 K/cumm Hgb 9.7(L) 13.0 - 17.5 g/dL [facility] Hct 29.2(L) 38.9 - 50.3 % [facility] CH Plt 278 150 - 400 K/cumm [facility] CH MPV 9.7 9.1 - 12.3 fL [facility] CH RBC 3.07(L) 4.30 - 5.80 M/cumm [facility] CH MCV 95.1 81.3 - 96.4 fL [facility] CH MCH 31.6 27.1 - 33.3 pg [facility] CH MCHC 33.2 32.3 - 35.7 g/dL [facility] RDW CV 12.9 11.1 - 14.9 % [facility] CH RDW SD 44.8 35.7 - 48.1 fL [facility] NRBC abs 0.00 0.00 - 0.01 K/cumm [facility] Blood 04/11/2025 5:23 AM CDT 04/11/2025 5:25 AM CDT Sejal Vail ACUPRESSURE THERAPIST LAB BLOOD ORDERABLES Final Result Performing Organization Address City/[facility]/ZIP Co de Phone Number MICHAEL DILL [phone] [place] [address] * (ABNORMAL) Hepatic function panel (04/11/2025 5:23 AM CDT) Bilirubin, total 0.6 0.1 - 1.2 mg/dL Bilirubin, direct 0.2 0.1 - 0.3 mg/dL [facility] Protein, pl 6.4(L) 6.5 - 8.5 g/dL [facility] Albumin 3.2(L) 3.5 - 5.0 g/dL [facility] Alk phos 55 40 - 130 Units/L [facility] ALT 61(H) 7 - 55 Units/L [facility] AST 52(H) 10 - 50 Units/L [facility] Blood 04/11/2025 5:23 AM CDT 04/11/2025 5:26 AM CDT us Nicolette Marlow ACUPRESSURE THERAPIST LAB BLOOD ORDERABLES Savannah l Result Performing Organization Address City/[facility]/ZIP Co de Phone Number CERNER [phone] [place] [address] * (ABNORMAL) Basic metabolic panel (04/11/2025 5:23 AM CDT) Sodium 134(L) 135 - 145 mmol/L Potassium, pl 3.7 3.3 - 4.9 mmol/L [facility] Chloride 95(L) 97 - 110 mmol/L [facility] CO2 29 22 - 32 mmol/L [facility] Anion gap 10 2 - 15 mmol/L [facility] BUN 32(H) 6 - 25 mg/dL [facility] Creatinine 1.15 0.80 - 1.30 mg/dL [facility] Glucose 117 70 - 199 mg/dL [facility] Comment: Interpretive Data Fasting glucose >/= 126 mg/dl is diagnostic for diabetes. Fasting is defined as no caloric intake for at least 8 hours. Fasting glucose between 100 mg/dl to 125 mg/dl is diagnostic of prediabetes. In a patient with classic symptoms of hyperglycemia or hyperglycemic crisis, a random glucose >/= 200 mg/dl is diagnostic for diabetes. In the absence of unequivocal hyperglycemia, results should be confirmed by repeat testing. The classification and Diagnosis of Diabetes Diabetes Care 202; 46: S19-S40. Current interpretive data was last revised 2022. Calcium 8.2(L) 8.5 - 10.3 mg/dL [facility] CH Blood 04/11/2025 5:23 AM CDT 04/11/2025 5:26 AM CDT us Sejal Vail ACUPRESSURE THERAPIST LAB BLOOD ORDERABLES Final Result Performing Organization Address City/[facility]/ZIP Co de Phone Number MICHAEL DILL [phone] [facility] [place] [address] * POCT glucose (04/10/2025 8:05 PM CDT) Glucose, POC 128 70 - 199 mg/dL Blood 04/10/2025 8:05 PM CDT 04/10/2025 8:05 PM CDT Alexandr Shafer MD LAB POCT ORDERABLES - DEVICE Final Result Performing Organization Address [facility] Co de Phone Number MICHAEL DILL [phone] [facility] [place] [address] * POCT glucose (04/10/2025 5:24 PM CDT) Glucose, POC 155 70 - 199 mg/dL Blood 04/10/2025 5:24 PM CDT 04/10/2025 5:24 PM CDT Alexandr Shafer MD LAB POCT ORDERABLES - DEVICE Final Result Performing Organization Address [facility] Co de Phone Number MICHAEL DILL [phone] [place] [place] [address] * POCT glucose (04/10/2025 12:37 PM CDT) Glucose, POC 158 70 - 199 mg/dL Blood 04/10/2025 12:3 7 PM CDT 04/10/2025 12:37 PM CDT Alexandr Shafer MD LAB POCT ORDERABLES - DEVICE Final Result Performing Organization Address [facility] Co de Phone Number MICHAEL DILL [phone] [facility] [place] [address] * POCT glucose (04/10/2025 8:09 AM CDT) Glucose, POC 139 70 - 199 mg/dL Blood 04/10/2025 8:09 AM CDT 04/10/2025 8:09 AM CDT us Alexandr Shafer MD LAB POCT ORDERABLES - DEVICE Final Result MICHAEL DILL [phone] [facility] [place] [address] * XR Chest 1 View - Portable - in AM (04/10/2025 6:49 AM CDT) Anatomical Region Laterality Modality Body, Chest N/A Computed Radiogr aphy 04/10/2025 9:26 AM CDT Impressions 04/10/2025 9:26 AM CDT Cardiomegaly with no failure. Electronically signed by: Doris Monique M.D. Narrative 04/10/2025 9:26 AM CDT EXAMINATION: XR CHEST 1 VIEW HISTORY: The patient is a 69-year-old male who has had bypass surgery. Comparison made with the previous study dated 04/09/2025. TECHNIQUE: AP portable view of the chest. FINDINGS: Cardiomegaly with aortic atherosclerosis. No failure. Right basal subsegmental atelectasis with the remainder of the lungs being clear. The distal tip of a retracted [place] catheter is in the proximal superior vena cava. Procedure Note Doris Monique MD - 04/10/2025 EXAMINATION: XR CHEST 1 VIEW HISTORY: The patient is a 69-year-old male who has had bypass surgery. Comparison made with the previous study dated 04/09/2025. TECHNIQUE: AP portable view of the chest. FINDINGS: Cardiomegaly with aortic atherosclerosis. No failure. Right basal subsegmental atelectasis with the remainder of the lungs being clear. The distal tip of a retracted [place] catheter is in the proximal superior vena cava. IMPRESSION: Cardiomegaly with no failure. Electronically signed by: Doris Monique M.D. us Alexanrd Shafer MD IMG XR PROCEDURES Final Resu lt * eGFR (04/10/2025 4:22 AM CDT) eGFR 63 >=60 mL/min/1. 73 m2 Comment: Interpretive Data Reference Interval Normal >/= 90 mL/min/1.73m2 Mildly decreased* 60 - 89 mL/min/1.73m2 Mildly to moderately decreased 45 - 59 mL/min/1.73m2 Moderately to severely decreased 30 - 44 mL/min/1.73m2 Severely decreased 15 - 29 mL/min/1.73m2 Kidney Failure < 15 mL/min/1.73m2 *Relative to young adult level Estimated glomerular filtration rate is determined by the 2020 CKD-EPI equation recommended by the [employer] (A Unifying Approach to GFR Estimation: Recommendations of the NKF-ASK Task Force on Reassessing the Inclusion of Race in Diagnosing Kidney Disease, JASN 2020). The CKD-EPI equation should not be used for patients with unstable renal function and has not been validated in children and those over 70. Current interpretive data was last reviewed 2021. Blood 04/10/2025 4:22 AM CDT 04/10/2025 4:33 AM CDT us Sejal Vail NP LAB BLOOD ORDERABLES Final Result [facility] [id number] [address] [place] [address] * (ABNORMAL) CBC without differential (04/10/2025 4:22 AM CDT) Pathologist [facility] WBC 12.16(H) 3.80 - 9.90 K/cumm Hgb 11.3(L) 13.0 - 17.5 g/dL [facility] Hct 33.2(L) 38.9 - 50.3 % [facility] Plt 259 150 - 400 K/cumm [facility] MPV 9.9 9.1 - 12.3 fL [facility] RBC 3.56(L) 4.30 - 5.80 M/cumm [facility] MCV 93.3 81.3 - 96.4 fL [facility] MCH 31.7 27.1 - 33.3 pg [facility] MCHC 34.0 32.3 - 35.7 g/dL [facility] RDW CV 12.7 11.1 - 14.9 % [facility] RDW SD 43.7 35.7 - 48.1 fL [facility] NRBC abs 0.00 0.00 - 0.01 K/cumm [facility] Blood 04/10/2025 4:22 AM CDT 04/10/2025 4:33 AM CDT Sejal Vail ACUPRESSURE THERAPIST LAB BLOOD ORDERABLES Final Result Performing Organization Address City/[facility]/ZIP Co de Phone Number [facility] [address] [address] [facility] [place] [address] * Magnesium (04/10/2025 4:22 AM CDT) [facility] Magnesium 2.0 1.4 - 2.5 mg/dL Blood 04/10/2025 4:22 AM CDT 04/10/2025 4:33 AM CDT Sejal Vail ACUPRESSURE THERAPIST LAB BLOOD ORDERABLES Final Result Performing Organization Address [facility] Co de Phone Number [facility] [address] [address] [facility] [place] [address] * (ABNORMAL) Basic metabolic panel (04/10/2025 4:22 AM CDT) Pathologist [facility] Sodium 135 135 - 145 mmol/L Potassium, pl 3.2(L) 3.3 - 4.9 mmol/L [facility] Chloride 91(L) 97 - 110 mmol/L [facility] CO2 30 22 - 32 mmol/L [facility] Anion gap 14 2 - 15 mmol/L [facility] BUN 36(H) 6 - 25 mg/dL [facility] Creatinine 1.22 0.80 - 1.30 mg/dL [facility] Glucose 108 70 - 199 mg/dL [facility] Comment: Interpretive Data Fasting glucose >/= 126 mg/dl is diagnostic for diabetes. Fasting is defined as no caloric intake for at least 8 hours. Fasting glucose between 100 mg/dl to 125 mg/dl is diagnostic of prediabetes. In a patient with classic symptoms of hyperglycemia or hyperglycemic crisis, a random glucose >/= 200 mg/dl is diagnostic for diabetes. In the absence of unequivocal hyperglycemia, results should be confirmed by repeat testing. The classification and Diagnosis of Diabetes Diabetes Care 2021; 46: S19-S40. Current interpretive data was last revised 2022. Calcium 9.3 8.5 - 10.3 mg/dL [facility] Blood 04/10/2025 4:22 AM CDT 04/10/2025 4:33 AM CDT Sejal Vail ACUPRESSURE THERAPIST LAB BLOOD ORDERABLES Final Result Performing Organization Address [facility] Co de Phone Number MICHAEL [phone] [place] [address] * POCT glucose (04/09/2025 8:12 PM CDT) Glucose, POC 145 70 - 199 mg/dL Blood 04/09/2025 8:12 PM CDT 04/09/2025 8:12 PM CDT Alexandr Shafer MD LAB POCT ORDERABLES - DEVICE Final Result Performing Organization Address [facility] Co de Phone Number [facility] [address] [place] [address] * POCT glucose (04/09/2025 5:45 PM CDT) Glucose, POC 120 70 - 199 mg/dL Blood 04/09/2025 5:45 PM CDT 04/09/2025 5:45 PM CDT Alexandr Shafer MD LAB POCT ORDERABLES - DEVICE Final Result Performing Organization Address [facility] Co de Phone Number [facility] [address] [place] [address] * POCT glucose (04/09/2025 1:59 PM CDT) Glucose, POC 108 70 - 199 mg/dL Blood 04/09/2025 1:59 PM CDT 04/09/2025 1:59 PM CDT Alexandr Shafer MD LAB POCT ORDERABLES - DEVICE Final Result Performing Organization Address [facility] de Phone Number MICHAEL DILL [address] [place] [address] * POCT glucose (04/09/2025 9:13 AM CDT) Glucose, POC 113 70 - 199 mg/dL Blood 04/09/2025 9:13 AM CDT 04/09/2025 9:13 AM CDT Alexandr Shafer MD LAB POCT ORDERABLES - DEVICE Final Result Performing Organization Address [facility] de Phone Number MICHAEL DILL [address] [address] [place] [address] * XR Chest 1 View - Portable - in AM (04/09/2025 6:22 AM CDT) Anatomical Region Laterality Modality Body, Chest N/A Computed Radiogr aphy 04/09/2025 10:5 0 AM CDT Impressions 04/09/2025 10:50 AM CDT No failure. Electronically signed by: Doris Moinque M.D. Narrative 04/09/2025 10:50 AM CDT EXAMINATION: XR CHEST 1 VIEW HISTORY: The patient is a 69-year-old male who has had bypass surgery. Comparison made with the previous study dated 04/08/2025. TECHNIQUE: AP portable view of the chest. FINDINGS: Borderline cardiomegaly with aortic atherosclerosis. No failure. Right basal subsegmental atelectasis noted with the remainder of the lungs being clear. The distal tip of the retracted [place] catheter is in the distal right internal jugular vein. Procedure Note Doris Monique MD - 04/09/2025 EXAMINATION: XR CHEST 1 VIEW HISTORY: The patient is a 69-year-old male who has had bypass surgery. Comparison made with the previous study dated 04/08/2025. TECHNIQUE: AP portable view of the chest. FINDINGS: Borderline cardiomegaly with aortic atherosclerosis. No failure. Right basal subsegmental atelectasis noted with the remainder of the lungs being clear. The distal tip of the retracted [place] catheter is in the distal right internal jugular vein. IMPRESSION: No failure. Electronically signed by: Doris Monique M.D. us Alexandr Shafer MD IMG XR PROCEDURES Final Resu lt * eGFR (04/09/2025 6:17 AM CDT) eGFR 61 >=60 mL/min/1. 73 m2 Comment: Interpretive Data Reference Interval Normal >/= 90 mL/min/1.73m2 Mildly decreased* 60 - 89 mL/min/1.73m2 Mildly to moderately decreased 45 - 59 mL/min/1.73m2 Moderately to severely decreased 30 - 44 mL/min/1.73m2 Severely decreased 15 - 29 mL/min/1.73m2 Kidney Failure < 15 mL/min/1.73m2 *Relative to young adult level Estimated glomerular filtration rate is determined by the 2020 CKD-EPI equation recommended by the National Kidney Foundation (A Unifying Approach to GFR Estimation: Recommendations of the NKF-ASK Task Force on Reassessing the Inclusion of Race in Diagnosing Kidney Disease, JASN 2020). The CKD-EPI equation should not be used for patients with unstable renal function and has not been validated in children and those over 70. Current interpretive data was last reviewed 2021. Blood 04/09/2025 6:17 AM CDT 04/09/2025 6:17 AM CDT us Sejal Vail NP LAB BLOOD ORDERABLES Final Result MICHAEL [address] [address] [place] [address] * (ABNORMAL) CBC without differential (04/09/2025 6:17 AM CDT) Pathologist [facility] WBC 13.24(H) 3.80 - 9.90 K/cumm Hgb 11.0(L) 13.0 - 17.5 g/dL [facility] Hct 32.3(L) 38.9 - 50.3 % [facility] Plt 222 150 - 400 K/cumm [facility] CH MPV 10.1 9.1 - 12.3 fL [facility] RBC 3.46(L) 4.30 - 5.80 M/cumm [facility] MCV 93.4 81.3 - 96.4 fL [facility] MCH 31.8 27.1 - 33.3 pg [facility] CH MCHC 34.1 32.3 - 35.7 g/dL [facility] CH RDW CV 12.8 11.1 - 14.9 % [facility] RDW SD 43.9 35.7 - 48.1 fL [facility] NRBC abs 0.00 0.00 - 0.01 K/cumm [facility] Blood 04/09/2025 6:17 AM CDT 04/09/2025 6:17 AM CDT Sejal Vail NP LAB BLOOD ORDERABLES Final Result Performing Organization Address City/[facility] Co de Phone Number [facility] [address] [place] [address] * Magnesium (04/09/2025 6:17 AM CDT) [facility] Magnesium 2.0 1.4 - 2.5 mg/dL Blood 04/09/2025 6:17 AM CDT 04/09/2025 6:17 AM CDT [facility]LO[facility] ORDERABLES Final Result Performing Organization Address City/[facility] Co de Phone Number [facility] [address] [place] [address] * (ABNORMAL) Basic metabolic panel (04/09/2025 6:17 AM CDT) Sodium 135 135 - 145 mmol/L Potassium, pl 2.9(L) 3.3 - 4.9 mmol/L [facility] Chloride 92(L) 97 - 110 mmol/L [facility] CO2 30 22 - 32 mmol/L [facility] Anion gap 13 2 - 15 mmol/L [facility] BUN 40(H) 6 - 25 mg/dL [facility] Creatinine 1.26 0.80 - 1.30 mg/dL [facility] Glucose 98 70 - 199 mg/dL [facility] Comment: Interpretive Data Fasting glucose >/= 126 mg/dl is diagnostic for diabetes. Fasting is defined as no caloric intake for at least 8 hours. Fasting glucose between 100 mg/dl to 125 mg/dl is diagnostic of prediabetes. In a patient with classic symptoms of hyperglycemia or hyperglycemic crisis, a random glucose >/= 200 mg/dl is diagnostic for diabetes. In the absence of unequivocal hyperglycemia, results should be confirmed by repeat testing. The classification and Diagnosis of Diabetes Diabetes Care 2021; 46: S19-S40. Current interpretive data was last revised 2022. Calcium 8.8 8.5 - 10.3 mg/dL [facility] Blood 04/09/2025 6:17 AM CDT 04/09/2025 6:17 AM CDT us Sejal Vail ACUPRESSURE THERAPIST LAB BLOOD ORDERABLES Final Result Performing Organization Address City/[facility]/ZIP Co de Phone Number [facility] [address] [address] Department [place] [address] * POCT glucose (04/09/2025 2:20 AM CDT) Glucose, POC 95 70 - 199 mg/dL Blood 04/09/2025 2:20 AM CDT 04/09/2025 2:20 AM CDT Alexandr Shafer MD LAB POCT ORDERABLES - DEVICE Final Result MICHAEL DILL [address] [address] [facility] [place] [address] * POCT glucose (04/08/2025 9:26 PM CDT) Glucose, POC 107 70 - 199 mg/dL Blood 04/08/2025 9:26 PM CDT 04/08/2025 9:26 PM CDT Alexandr Shafer MD LAB POCT ORDERABLES - DEVICE Final Result MICHAEL DILL [address] [address] [facility] [place] [address] * POCT glucose (04/08/2025 6:03 PM CDT) Glucose, POC 108 70 - 199 mg/dL Blood 04/08/2025 6:03 PM CDT 04/08/2025 6:03 PM CDT Alexandr Shafer MD LAB POCT ORDERABLES - DEVICE Final Result [facility]PH[facility] DILL [address] [address] [facility] [place] [address] * POCT glucose (04/08/2025 12:31 PM CDT) Glucose, POC 123 70 - 199 mg/dL Blood 04/08/2025 12:3 1 PM CDT 04/08/2025 12:31 PM CDT Alexandr Shafer MD LAB POCT ORDERABLES - DEVICE Final Result MICHAEL DILL [address] [address] [facility] [place] [address] * POCT glucose (04/08/2025 7:41 AM CDT) Glucose, POC 126 70 - 199 mg/dL Blood 04/08/2025 7:41 AM CDT 04/08/2025 7:41 AM CDT us Alexandr Shafer MD LAB POCT ORDERABLES - DEVICE Final Result MICHAEL DILL [address] [address] [place] [address] * XR Chest 1 View - Portable - in AM (04/08/2025 6:40 AM CDT) Anatomical Region Laterality Modality Body, Chest N/A Computed Radiogr aphy 04/08/2025 6:45 AM CDT Impressions 04/08/2025 6:45 AM CDT Cardiomegaly. Electronically signed by: Doris Monique M.D. Narrative 04/08/2025 6:45 AM CDT EXAMINATION: XR CHEST 1 VIEW HISTORY: The patient is a 69-year-old male who has had cardiac surgery. Comparison made with study dated 04/07/2025. TECHNIQUE: AP portable view of the chest. FINDINGS: Cardiomegaly with aortic atherosclerosis. No failure. Subsegmental atelectasis seen at both bases. The distal tip of a retracted [place] catheter is in the distal right jugular vein. Procedure Note Doris Monique MD - 04/08/2025 EXAMINATION: XR CHEST 1 VIEW HISTORY: The patient is a 69-year-old male who has had cardiac surgery. Comparison made with study dated 04/07/2025. TECHNIQUE: AP portable view of the chest. FINDINGS: Cardiomegaly with aortic atherosclerosis. No failure. Subsegmental atelectasis seen at both bases. The distal tip of a retracted [place] catheter is in the distal right jugular vein. IMPRESSION: Cardiomegaly. Electronically signed by: Doris Monique M.D. Alexandr Shafer MD IMG XR PROCEDURES Final Resu lt * eGFR (04/08/2025 6:11 AM CDT) eGFR 66 >=60 mL/min/1. 73 m2 Comment: Interpretive Data Reference Interval Normal >/= 90 mL/min/1.73m2 Mildly decreased* 60 - 89 mL/min/1.73m2 Mildly to moderately decreased 45 - 59 mL/min/1.73m2 Moderately to severely decreased 30 - 44 mL/min/1.73m2 Severely decreased 15 - 29 mL/min/1.73m2 Kidney Failure < 15 mL/min/1.73m2 *Relative to young adult level Estimated glomerular filtration rate is determined by the 2020 CKD-EPI equation recommended by the National Kidney Foundation (A Unifying Approach to GFR Estimation: Recommendations of the NKF-ASK Task Force on Reassessing the Inclusion of Race in Diagnosing Kidney Disease, JASN 2020). The CKD-EPI equation should not be used for patients with unstable renal function and has not been validated in children and those over 70. Current interpretive data was last reviewed 2021. Blood 04/08/2025 6:11 AM CDT 04/08/2025 6:11 AM CDT us Sejal Vail ACUPRESSURE THERAPIST LAB BLOOD ORDERABLES Final Result [facility] [address] [address] [place] [address] * (ABNORMAL) CBC without differential (04/08/2025 6:11 AM CDT) WBC 13.38(H) 3.80 - 9.90 K/cumm Hgb 11.2(L) 13.0 - 17.5 g/dL [facility] Hct 33.2(L) 38.9 - 50.3 % [facility] Plt 188 150 - 400 K/cumm [facility] MPV 9.9 9.1 - 12.3 fL [facility] RBC 3.49(L) 4.30 - 5.80 M/cumm [facility] MCV 95.1 81.3 - 96.4 fL [facility] MCH 32.1 27.1 - 33.3 pg [facility] MCHC 33.7 32.3 - 35.7 g/dL [facility] RDW CV 13.0 11.1 - 14.9 % [facility] CH RDW SD 45.1 35.7 - 48.1 fL [facility] CH NRBC abs 0.00 0.00 - 0.01 K/cumm [facility] Blood 04/08/2025 6:11 AM CDT 04/08/2025 6:11 AM CDT Sejalricardo Palma Yared ACUPRESSURE THERAPIST LAB BLOOD ORDERABLES Final Result Performing Organization Address City/[facility]/ZIP Co de Phone Number MICHAEL DILL [address] [address] [place], [place] [id number] * Magnesium (04/08/2025 6:11 AM CDT) [facility] Magnesium 1.9 1.4 - 2.5 mg/dL Blood 04/08/2025 6:11 AM CDT 04/08/2025 6:11 AM CDT Sejalricardo Palma Yared LAB BLOOD ORDERABLES Final Result Performing Organization Address City/[facility] Co de Phone Number MICHAEL DILL [address] [place] [address] * (ABNORMAL) Basic metabolic panel (04/08/2025 6:11 AM CDT) Pathologist [facility] Sodium 133(L) 135 - 145 mmol/L Potassium, pl 3.2(L) 3.3 - 4.9 mmol/L [facility] Chloride 92(L) 97 - 110 mmol/L [facility] CO2 29 22 - 32 mmol/L [facility] Anion gap 12 2 - 15 mmol/L [facility] BUN 36(H) 6 - 25 mg/dL [facility] Creatinine 1.18 0.80 - 1.30 mg/dL [facility] Glucose 128 70 - 199 mg/dL [facility] Comment: Interpretive Data Fasting glucose >/= 126 mg/dl is diagnostic for diabetes. Fasting is defined as no caloric intake for at least 8 hours. Fasting glucose between 100 mg/dl to 125 mg/dl is diagnostic of prediabetes. In a patient with classic symptoms of hyperglycemia or hyperglycemic crisis, a random glucose >/= 200 mg/dl is diagnostic for diabetes. In the absence of unequivocal hyperglycemia, results should be confirmed by repeat testing. The classification and Diagnosis of Diabetes Diabetes Care 2021; 46: S19-S40. Current interpretive data was last revised 2022. Calcium 9.1 8.5 - 10.3 mg/dL [facility] Blood 04/08/2025 6:11 AM CDT 04/08/2025 6:11 AM CDT Sejal Vail ACUPRESSURE THERAPIST LAB BLOOD ORDERABLES Final Result Performing Organization Address City/[facility]/ZIP Co de Phone Number [facility] [address] [place] [address] * POCT glucose (04/08/2025 2:31 AM CDT) Glucose, POC 108 70 - 199 mg/dL Blood 04/08/2025 2:31 AM CDT 04/08/2025 2:31 AM CDT Alexandr Shafer MD LAB POCT ORDERABLES - DEVICE Final Result Performing Organization Address [facility] Co de Phone Number [facility] [address] [place] [address] * POCT glucose (04/07/2025 9:37 PM CDT) Glucose, POC 128 70 - 199 mg/dL Blood 04/07/2025 9:37 PM CDT 04/07/2025 9:37 PM CDT Alexandr Shafer MD LAB POCT ORDERABLES - DEVICE Final Result Performing Organization Address City/[facility] Co de Phone Number [facility] [address] [address] [place] [address] * POCT glucose (04/07/2025 5:06 PM CDT) Glucose, POC 138 70 - 199 mg/dL Blood 04/07/2025 5:06 PM CDT 04/07/2025 5:06 PM CDT Alexandr Shafer MD LAB POCT ORDERABLES - DEVICE Final Result Performing Organization Address [facility] Co de Phone Number MICHAEL DILL [address] [address] [facility] [place] [address] * POCT glucose (04/07/2025 12:41 PM CDT) Glucose, POC 111 70 - 199 mg/dL Blood 04/07/2025 12:4 1 PM CDT 04/07/2025 12:41 PM CDT Alexandr Shafer MD LAB POCT ORDERABLES - DEVICE Final Result Performing Organization Address [facility] de Phone Number MICHAEL DILL [address] [address] [facility] [place] [address] * XR Kub (04/07/2025 10:18 AM CDT) Anatomical Region Laterality Modality Body, Abdomen N/A Computed Radiogr aphy 04/07/2025 11:3 1 AM CDT Impressions 04/07/2025 11:31 AM CDT Findings raise the possibility of ileus. If symptoms persist, then a repeat film could be obtained. Electronically signed by: Doris Monique M.D. Narrative 04/07/2025 11:31 AM CDT EXAMINATION: XR KUB HISTORY: The patient is a 69-year-old male who presents with abdominal distention. TECHNIQUE: Supine view of the abdomen. FINDINGS: Mild gaseous distention of the colon along with gaseous distention of the single loop of dilated small bowel in the left midabdomen. No abnormal calcification. Procedure Note Doris Monique MD - 04/07/2025 EXAMINATION: XR KUB HISTORY: The patient is a 69-year-old male who presents with abdominal distention. TECHNIQUE: Supine view of the abdomen. FINDINGS: Mild gaseous distention of the colon along with gaseous distention of the single loop of dilated small bowel in the left midabdomen. No abnormal calcification. IMPRESSION: Findings raise the possibility of ileus. If symptoms persist, then a repeat film could be obtained. Electronically signed by: Doris Monique M.D. us Sejal Vail ACUPRESSURE THERAPIST IMG XR PROCEDURES Final Re sult * POCT glucose (04/07/2025 7:57 AM CDT) Glucose, POC 134 70 - 199 mg/dL Blood 04/07/2025 7:57 AM CDT 04/07/2025 7:57 AM CDT us Alexandr Shafer MD LAB POCT ORDERABLES - DEVICE Final Result Performing Organization Address City/State/[facility] Co ca Phone Number [facility] [address] [facility] [place] [address] * Critical Care (04/07/2025 7:25 AM CDT) Narrative Sergey Browne MD - 04/07/2025 7:25 AM CDT Sergey Browne MD 04/07/2025 7:25 PM Critical Care Performed by: Hoda Paz PA Authorized by: Hoda Paz PA CRITICAL CARE: Team: MIKAEL Shift: AM Level of Billing: Subsequent Hospital Visit Level 3 My time spent with this patient was 45 minutes: Critical Provider Statement: I have seen and examined the patient on this day of service. I have reviewed and confirmed the history, physical exam, laboratory, and radiographic data as documented in the ICU note. I have reviewed and discussed my treatment plan with the patient's team and other medical/interventional sale consultant staff. This time was in addition to and separate from care provided by other practitioners on this day of service. I spent time reviewing and interpreting data from bedside monitors, laboratory results, and imaging, I spent time discussing the management of this critically ill patient with consultants and the medical staff and I spent time documenting in the medical record Hoda BAKER IN [facility]/BEDSIDE JONNY REYES Final Result * XR Chest 1 View - Portable - in AM (04/07/2025 4:17 AM CDT) Anatomical Region Laterality Modality Body, Chest N/A Computed Radiogr aphy 04/07/2025 8:40 AM CDT Impressions 04/07/2025 8:40 AM CDT No failure. Electronically signed by: Doris Monique M.D. Narrative 04/07/2025 8:40 AM CDT EXAMINATION: XR CHEST 1 VIEW HISTORY: The patient is a 69-year-old male who has had cardiac surgery. Comparison made with the previous study dated 04/06/2025. TECHNIQUE: AP portable view of the chest. FINDINGS: The distal tip of a retracted [place] catheter is in the superior vena cava. Bilateral thoracostomy tubes have been removed. Cardiomegaly with aortic atherosclerosis. No failure. No active infiltrate. Procedure Note Doris Monique MD - 04/07/2025 EXAMINATION: XR CHEST 1 VIEW HISTORY: The patient is a 69-year-old male who has had cardiac surgery. Comparison made with the previous study dated 04/06/2025. TECHNIQUE: AP portable view of the chest. FINDINGS: The distal tip of a retracted [place] catheter is in the superior vena cava. Bilateral thoracostomy tubes have been removed. Cardiomegaly with aortic atherosclerosis. No failure. No active infiltrate. IMPRESSION: No failure. Electronically signed by: Doris Monique M.D. Alexandr Shafer MD IMG XR PROCEDURES Final Resu lt * (ABNORMAL) Calcium, ionized, whole blood (04/07/2025 2:09 AM CDT) Ca, ionized, bld 4.40(L) 4.50 - 5.10 mg/dL Blood 04/07/2025 2:09 AM CDT 04/07/2025 2:14 AM CDT us Alexandr Shafer MD LAB BLOOD ORDERABLES Final R esult Performing Organization Address City/[facility]/ZIP Co de Phone Number MICHAEL DILL [address] [place] [address] * eGFR (04/07/2025 2:09 AM CDT) eGFR 61 >=60 mL/min/1. 73 m2 Comment: Interpretive Data Reference Interval Normal >/= 90 mL/min/1.73m2 Mildly decreased* 60 - 89 mL/min/1.73m2 Mildly to moderately decreased 45 - 59 mL/min/1.73m2 Moderately to severely decreased 30 - 44 mL/min/1.73m2 Severely decreased 15 - 29 mL/min/1.73m2 Kidney Failure < 15 mL/min/1.73m2 *Relative to young adult level Estimated glomerular filtration rate is determined by the 2020 CKD-EPI equation recommended by the National Kidney Foundation (A Unifying Approach to GFR Estimation: Recommendations of the NKF-ASK Task Force on Reassessing the Inclusion of Race in Diagnosing Kidney Disease, JASN 2020). The CKD-EPI equation should not be used for patients with unstable renal function and has not been validated in children and those over 70. Current interpretive data was last reviewed 2021. Blood 04/07/2025 2:09 AM CDT 04/07/2025 2:14 AM CDT us Sejal Vail ACUPRESSURE THERAPIST LAB BLOOD ORDERABLES Final Result Performing Organization Address City/[facility]/ZIP Co de Phone Number MICHAEL DILL [address] [address] Department of Laboratories [place], [place] [id number] * (ABNORMAL) CBC without differential (04/07/2025 2:09 AM CDT) WBC 15.17(H) 3.80 - 9.90 K/cumm Hgb 10.4(L) 13.0 - 17.5 g/dL [facility] Hct 31.4(L) 38.9 - 50.3 % [facility] Plt 126(L) 150 - 400 K/cumm [facility] MPV 9.7 9.1 - 12.3 fL [facility] RBC 3.29(L) 4.30 - 5.80 M/cumm [facility] MCV 95.4 81.3 - 96.4 fL [facility] MCH 31.6 27.1 - 33.3 pg [facility] MCHC 33.1 32.3 - 35.7 g/dL [facility] RDW CV 13.2 11.1 - 14.9 % [facility] RDW SD 46.3 35.7 - 48.1 fL [facility] NRBC abs 0.00 0.00 - 0.01 K/cumm [facility] Blood 04/07/2025 2:09 AM CDT 04/07/2025 2:15 AM CDT Sejal aVil ACUPRESSURE THERAPIST LAB BLOOD ORDERABLES Final Result Performing Organization Address City/[facility]/ZIP Co de Phone Number [facility] [facility] [id number] [address] [facility] [place] [address] * Magnesium (04/07/2025 2:09 AM CDT) [facility] Magnesium 2.1 1.4 - 2.5 mg/dL Blood 04/07/2025 2:09 AM CDT 04/07/2025 2:14 AM CDT Sejal Vail ACUPRESSURE THERAPIST LAB BLOOD ORDERABLES Final Result Performing Organization Address City/[facility]/ZIP Co de Phone Number [facility] [address] [place] [address] * (ABNORMAL) Basic metabolic panel (04/07/2025 2:09 AM CDT) Sodium 134(L) 135 - 145 mmol/L Potassium, pl 3.4 3.3 - 4.9 mmol/L [facility] Chloride 94(L) 97 - 110 mmol/L [facility] CO2 28 22 - 32 mmol/L [facility] Anion gap 12 2 - 15 mmol/L [facility] BUN 32(H) 6 - 25 mg/dL [facility] Creatinine 1.26 0.80 - 1.30 mg/dL [facility] Glucose 184 70 - 199 mg/dL [facility] Comment: Interpretive Data Fasting glucose >/= 126 mg/dl is diagnostic for diabetes. Fasting is defined as no caloric intake for at least 8 hours. Fasting glucose between 100 mg/dl to 125 mg/dl is diagnostic of prediabetes. In a patient with classic symptoms of hyperglycemia or hyperglycemic crisis, a random glucose >/= 200 mg/dl is diagnostic for diabetes. In the absence of unequivocal hyperglycemia, results should be confirmed by repeat testing. The classification and Diagnosis of Diabetes Diabetes Care 2021; 46: S19-S40. Current interpretive data was last revised 2022. Calcium 8.7 8.5 - 10.3 mg/dL [facility] Blood 04/07/2025 2:09 AM CDT 04/07/2025 2:14 AM CDT us Sejal Vail NP LAB BLOOD ORDERABLES Final Result Performing Organization Address City/[facility] Co de Phone Number [facility] [id number] [address] [place] [address] * POCT glucose (04/06/2025 8:01 PM CDT) [facility] Glucose, POC 124 70 - 199 mg/dL Blood 04/06/2025 8:01 PM CDT 04/06/2025 8:01 PM CDT us Alexandr Shafer MD LAB POCT ORDERABLES - DEVICE Final Result Performing Organization Address City/[facility]/ZIP Co de Phone Number [facility] [address] [address] [place] [address] * Critical Care (04/06/2025 7:34 PM CDT) Narrative Liat cShulte MD - 04/06/2025 7:34 PM CDT Liat Schulte MD 04/07/2025 12:09 AM Critical Care Performed by: Javier Jimenez PA Authorized by: Javier Jimenez PA CRITICAL CARE: Team: CHNE Shift: PM Level of Billing: Subsequent Hospital Visit Level 3 My time spent with this patient was 60 minutes: Critical Provider Statement: I have seen and examined the patient on this day of service. I have reviewed and confirmed the history, physical exam, laboratory, and radiographic data as documented in the ICU note. I have reviewed and discussed my treatment plan with the patient's team and other medical/interventional sale consultant staff. This time was in addition to and separate from care provided by other practitioners on this day of service. Javier BAKER IN CLINIC/BEDSIDE ORDERABL ES Final Result * POCT glucose (04/06/2025 4:58 PM CDT) Glucose, POC 182 70 - 199 mg/dL Blood 04/06/2025 4:58 PM CDT 04/06/2025 4:58 PM CDT Alexandr Shafer MD LAB POCT ORDERABLES - DEVICE Final Result Performing Organization Address City/[facility]/ZIP Co de Phone Number MICHAEL ANIYAH [address] [address] [place] [address] * (ABNORMAL) Calcium, ionized, whole blood (04/06/2025 2:46 PM CDT) Pathologist [facility] Ca, ionized, bld 4.33(L) 4.50 - 5.10 mg/dL Blood 04/06/2025 2:46 PM CDT 04/06/2025 2:58 PM CDT Alexandr Shafer MD LAB BLOOD ORDERABLES Final R esult [facility] [address] [address] [place] [address] * eGFR (04/06/2025 2:46 PM CDT) eGFR 62 >=60 mL/min/1. 73 m2 Comment: Interpretive Data Reference Interval Normal >/= 90 mL/min/1.73m2 Mildly decreased* 60 - 89 mL/min/1.73m2 Mildly to moderately decreased 45 - 59 mL/min/1.73m2 Moderately to severely decreased 30 - 44 mL/min/1.73m2 Severely decreased 15 - 29 mL/min/1.73m2 Kidney Failure < 15 mL/min/1.73m2 *Relative to young adult level Estimated glomerular filtration rate is determined by the 2020 CKD-EPI equation recommended by the National Kidney Foundation (A Unifying Approach to GFR Estimation: Recommendations of the NKF-ASK Task Force on Reassessing the Inclusion of Race in Diagnosing Kidney Disease, JASN 2020). The CKD-EPI equation should not be used for patients with unstable renal function and has not been validated in children and those over 70. Current interpretive data was last reviewed 2021. Blood 04/06/2025 2:46 PM CDT 04/06/2025 3:11 PM CDT us Alexandr Shafer MD LAB BLOOD ORDERABLES Final R esult [facility] [address] [address] [place] [address] * (ABNORMAL) CBC without differential (04/06/2025 2:46 PM CDT) WBC 16.79(H) 3.80 - 9.90 K/cumm Hgb 11.0(L) 13.0 - 17.5 g/dL [facility] Hct 32.8(L) 38.9 - 50.3 % [facility] Plt 141(L) 150 - 400 K/cumm [facility] MPV 10.1 9.1 - 12.3 fL [facility] RBC 3.46(L) 4.30 - 5.80 M/cumm [facility] MCV 94.8 81.3 - 96.4 fL [facility] MCH 31.8 27.1 - 33.3 pg [facility] MCHC 33.5 32.3 - 35.7 g/dL [facility] RDW CV 13.4 11.1 - 14.9 % [facility] RDW SD 47.1 35.7 - 48.1 fL [facility] NRBC abs 0.00 0.00 - 0.01 K/cumm [facility] Blood 04/06/2025 2:46 PM CDT 04/06/2025 3:10 PM CDT Alexandr Shafer MD LAB BLOOD ORDERABLES Final R esult Performing Organization Address [facility] Co de Phone Number [facility] [address] [place] [address] * Magnesium (04/06/2025 2:46 PM CDT) Pathologist [facility] Magnesium 2.1 1.4 - 2.5 mg/dL Blood 04/06/2025 2:46 PM CDT 04/06/2025 3:11 PM CDT Alexandr Shafer MD LAB BLOOD ORDERABLES Final R [facility] Performing Organization Address [facility] de Phone Number [facility] [address] [place] [address] * (ABNORMAL) Basic metabolic panel (04/06/2025 2:46 PM CDT) Pathologist [facility] Sodium 137 135 - 145 mmol/L Potassium, pl 3.6 3.3 - 4.9 mmol/L [facility] Chloride 98 97 - 110 mmol/L [facility] CO2 26 22 - 32 mmol/L [facility] Anion gap 13 2 - 15 mmol/L [facility] BUN 32(H) 6 - 25 mg/dL [facility] Creatinine 1.25 0.80 - 1.30 mg/dL [facility] Glucose 160 70 - 199 mg/dL [facility] Comment: Interpretive Data Fasting glucose >/= 126 mg/dl is diagnostic for diabetes. Fasting is defined as no caloric intake for at least 8 hours. Fasting glucose between 100 mg/dl to 125 mg/dl is diagnostic of prediabetes. In a patient with classic symptoms of hyperglycemia or hyperglycemic crisis, a random glucose >/= 200 mg/dl is diagnostic for diabetes. In the absence of unequivocal hyperglycemia, results should be confirmed by repeat testing. The classification and Diagnosis of Diabetes Diabetes Care 2021; 46: S19-S40. Current interpretive data was last revised 2022. Calcium 8.5 8.5 - 10.3 mg/dL MICHAEL Blood 04/06/2025 2:46 PM CDT 04/06/2025 3:11 PM CDT Alexandr Shafer MD LAB BLOOD ORDERABLES Final R esult Performing Organization Address [facility] Co de Phone Number MICHAEL [address] [place] [address] * POCT glucose (04/06/2025 12:03 PM CDT) [facility] Glucose, POC 162 70 - 199 mg/dL Blood 04/06/2025 12:0 3 PM CDT 04/06/2025 12:03 PM CDT Alexandr Shafer MD LAB POCT ORDERABLES - DEVICE Final Result Performing Organization Address [facility] de Phone Number MICHAEL [address] [facility] [place] [address] * Critical Care (04/06/2025 9:11 AM CDT) Narrative Sergey Browne MD - 04/06/2025 9:11 AM CDT Sergey Browne MD 04/06/2025 7:49 PM Critical Care Performed by: Hoda Paz PA Authorized by: Hoda Paz PA CRITICAL CARE: Team: MIKAEL Shift: AM Level of Billing: Critical Care My time spent with this patient was 90 minutes: Critical Provider Statement: I have seen and examined the patient on this day of service. I have reviewed and confirmed the history, physical exam, laboratory and radiologic data as documented in the signed ICU note. I have reviewed and discussed my treatment plan with the ICU team and other medical/interventional sale consultant staff, making frequent assessments and decisions regarding this patient's complex medical care. Critical Care time was exclusive of time spent performing separately billed procedures, treating other patients, and teaching. This time was in addition to and separate from critical care provided by other practitioners in my group on this day of service. Critical Care was necessary to treat or prevent imminent or life-threatening deterioration of the following conditions: I spent time reviewing and interpreting data from bedside monitors, laboratory results, and imaging, I spent time discussing the management of this critically ill patient with consultants and the medical staff and I spent time documenting in the medical record us Hoda BAKER IN CLINIC/BEDSIDE JONNY REYES Final Result * POCT glucose (04/06/2025 7:09 AM CDT) Glucose, POC 108 70 - 199 mg/dL Blood 04/06/2025 7:09 AM CDT 04/06/2025 7:09 AM CDT Alexandr Shafer MD LAB POCT ORDERABLES - DEVICE Final Result Performing Organization Address [facility] de Phone Number DELPHINELUIS [address] [address] [facility] [place] [address] * POCT glucose (04/06/2025 5:06 AM CDT) Glucose, POC 127 70 - 199 mg/dL Blood 04/06/2025 5:06 AM CDT 04/06/2025 5:06 AM CDT Alexandr Shafer MD LAB POCT ORDERABLES - DEVICE Final Result Performing Organization Address [facility] [place] [address] [address] [facility] [place] [address] * XR Chest 1 View - Portable - in AM (04/06/2025 3:59 AM CDT) Anatomical Region Laterality Modality Body, Chest N/A Computed Radiogr aphy 04/06/2025 9:09 AM CDT Impressions 04/06/2025 9:09 AM CDT Pulmonary arterial catheter is appropriately position. Mediastinal drain and bilateral thoracostomy tubes are appropriately position. Poststernotomy changes. Mild cardiomegaly with prominence of interstitial markings in the perihilar region bilaterally suggestive of interstitial pulmonary edema. No pneumothorax. No acute osseous abnormality. Electronically signed by: Zach Jaffe II, D.O. Narrative 04/06/2025 9:09 AM CDT Examination: XR CHEST 1 VIEW Date: 04/06/2025 3:55 AM History: s/p cardiac surg Comparison: 04/05/2025. Procedure Note Zach Jaffe II, DO - 04/06/2025 Examination: XR CHEST 1 VIEW Date: 04/06/2025 3:55 AM History: s/p cardiac surg Comparison: 04/05/2025. IMPRESSION: Pulmonary arterial catheter is appropriately position. Mediastinal drain and bilateral thoracostomy tubes are appropriately position. Poststernotomy changes. Mild cardiomegaly with prominence of interstitial markings in the perihilar region bilaterally suggestive of interstitial pulmonary edema. No pneumothorax. No acute osseous abnormality. Electronically signed by: Zach Jaffe II, D.O. us Alexandr Shafer MD IMG XR PROCEDURES Final Resu lt * (ABNORMAL) eGFR (04/06/2025 3:03 AM CDT) eGFR 58(L) >=60 mL/min/1. 73 m2 Comment: Interpretive Data Reference Interval Normal >/= 90 mL/min/1.73m2 Mildly decreased* 60 - 89 mL/min/1.73m2 Mildly to moderately decreased 45 - 59 mL/min/1.73m2 Moderately to severely decreased 30 - 44 mL/min/1.73m2 Severely decreased 15 - 29 mL/min/1.73m2 Kidney Failure < 15 mL/min/1.73m2 *Relative to young adult level Estimated glomerular filtration rate is determined by the 2020 CKD-EPI equation recommended by the National Kidney Foundation (A Unifying Approach to GFR Estimation: Recommendations of the NKF-ASK Task Force on Reassessing the Inclusion of Race in Diagnosing Kidney Disease, JASN 2020). The CKD-EPI equation should not be used for patients with unstable renal function and has not been validated in children and those over 70. Current interpretive data was last reviewed 2021. Blood 04/06/2025 3:03 AM CDT 04/06/2025 3:03 AM CDT Sejal Vail ACUPRESSURE THERAPIST LAB BLOOD ORDERABLES Final Result Performing Organization Address City/[facility]/ZIP Co de Phone Number MICHAEL DILL [address] [place] [address] * (ABNORMAL) CBC without differential (04/06/2025 3:03 AM CDT) WBC 19.51(H) 3.80 - 9.90 K/cumm Hgb 11.1(L) 13.0 - 17.5 g/dL [facility] Hct 33.0(L) 38.9 - 50.3 % [facility] Plt 136(L) 150 - 400 K/cumm [facility] MPV 9.7 9.1 - 12.3 fL [facility] RBC 3.48(L) 4.30 - 5.80 M/cumm [facility] MCV 94.8 81.3 - 96.4 fL [facility] MCH 31.9 27.1 - 33.3 pg [facility] MCHC 33.6 32.3 - 35.7 g/dL [facility] RDW CV 13.6 11.1 - 14.9 % [facility] CH RDW SD 47.2 35.7 - 48.1 fL [facility] NRBC abs 0.00 0.00 - 0.01 K/cumm [facility] Blood 04/06/2025 3:03 AM CDT 04/06/2025 3:03 AM CDT Sejal Palma Yared ACUPRESSURE THERAPIST LAB BLOOD ORDERABLES Final Result MICHAEL DILL [address] [place] [address] * Magnesium (04/06/2025 3:03 AM CDT) Magnesium 2.2 1.4 - 2.5 mg/dL Blood 04/06/2025 3:03 AM CDT 04/06/2025 3:03 AM CDT Sejal Vail NP LAB BLOOD ORDERABLES Final Result MICHAEL DILL [address] [address] [place] [address] * (ABNORMAL) Basic metabolic panel (04/06/2025 3:03 AM CDT) [facility] Sodium 137 135 - 145 mmol/L Potassium, pl 3.9 3.3 - 4.9 mmol/L [facility] Chloride 101 97 - 110 mmol/L [facility] CO2 22 22 - 32 mmol/L [facility] Anion gap 14 2 - 15 mmol/L [facility] BUN 29(H) 6 - 25 mg/dL [facility] Creatinine 1.31(H) 0.80 - 1.30 mg/dL [facility] Glucose 103 70 - 199 mg/dL [facility] Comment: Interpretive Data Fasting glucose >/= 126 mg/dl is diagnostic for diabetes. Fasting is defined as no caloric intake for at least 8 hours. Fasting glucose between 100 mg/dl to 125 mg/dl is diagnostic of prediabetes. In a patient with classic symptoms of hyperglycemia or hyperglycemic crisis, a random glucose >/= 200 mg/dl is diagnostic for diabetes. In the absence of unequivocal hyperglycemia, results should be confirmed by repeat testing. The classification and Diagnosis of Diabetes Diabetes Care 2021; 46: S19-S40. Current interpretive data was last revised 2022. Calcium 8.3(L) 8.5 - 10.3 mg/dL [facility] Blood 04/06/2025 3:03 AM CDT 04/06/2025 3:03 AM CDT Sejal Vail ACUPRESSURE THERAPIST LAB BLOOD ORDERABLES Final Result MICHAEL DILL [address] [address] [place] [address] * POCT glucose (04/06/2025 3:00 AM CDT) Glucose, POC 98 70 - 199 mg/dL Blood 04/06/2025 3:00 AM CDT 04/06/2025 3:00 AM CDT us Alexandr Shafer MD LAB POCT ORDERABLES - DEVICE Final Result Performing Organization Address [facility] Co de Phone Number MICHAEL [phone] [address] [facility] [place] [address] * POCT glucose (04/06/2025 1:37 AM CDT) Glucose, POC 99 70 - 199 mg/dL Blood 04/06/2025 1:37 AM CDT 04/06/2025 1:37 AM CDT us Alexandr Shafer MD LAB POCT ORDERABLES - DEVICE Final Result Performing Organization Address [facility] de Phone Number MICHAEL [phone] [address] [facility] [place] [address] * POCT glucose (04/06/2025 12:48 AM CDT) Glucose, POC 97 70 - 199 mg/dL Blood 04/06/2025 12:4 8 AM CDT 04/06/2025 12:48 AM CDT us Alexandr Shafer MD LAB POCT ORDERABLES - DEVICE Final Result Performing Organization Address [facility] de Phone Number MICHAEL [address] [address] [facility] [place] [address] * POCT glucose (04/05/2025 11:42 PM CDT) Glucose, POC 107 70 - 199 mg/dL Blood 04/05/2025 11:4 2 PM CDT 04/05/2025 11:42 PM CDT us Alexandr Shafer MD LAB POCT ORDERABLES - DEVICE Final Result Performing Organization Address City/[facility]/ZIP Co de Phone Number MICHAEL DILL [address] [address] * (ABNORMAL) eGFR (04/05/2025 10:47 PM CDT) eGFR 58(L) >=60 mL/min/1. 73 m2 Comment: Interpretive Data Reference Interval Normal >/= 90 mL/min/1.73m2 Mildly decreased* 60 - 89 mL/min/1.73m2 Mildly to moderately decreased 45 - 59 mL/min/1.73m2 Moderately to severely decreased 30 - 44 mL/min/1.73m2 Severely decreased 15 - 29 mL/min/1.73m2 Kidney Failure < 15 mL/min/1.73m2 *Relative to young adult level Estimated glomerular filtration rate is determined by the 2020 CKD-EPI equation recommended by the National Kidney Foundation (A Unifying Approach to GFR Estimation: Recommendations of the NKF-ASK Task Force on Reassessing the Inclusion of Race in Diagnosing Kidney Disease, JASN 2020). The CKD-EPI equation should not be used for patients with unstable renal function and has not been validated in children and those over 70. Current interpretive data was last reviewed 2021. Blood 04/05/2025 10:4 7 PM CDT 04/05/2025 10:47 PM CDT Alexandr Shafer MD LAB BLOOD ORDERABLES Final R esult MICHAEL DILL [address] [address] [place] [address] * Magnesium (04/05/2025 10:47 PM CDT) Magnesium 2.1 1.4 - 2.5 mg/dL Blood 04/05/2025 10:4 7 PM CDT 04/05/2025 10:47 PM CDT Alexandr Shafer MD LAB BLOOD ORDERABLES Final R esult MICHAEL DILL [address] [place] [address] * (ABNORMAL) Basic metabolic panel (04/05/2025 10:47 PM CDT) Sodium 138 135 - 145 mmol/L Potassium, pl 3.8 3.3 - 4.9 mmol/L [facility] Chloride 105 97 - 110 mmol/L [facility] CO2 21(L) 22 - 32 mmol/L [facility] Anion gap 12 2 - 15 mmol/L [facility] BUN 27(H) 6 - 25 mg/dL [facility] Creatinine 1.31(H) 0.80 - 1.30 mg/dL [facility] Glucose 116 70 - 199 mg/dL [facility] Comment: Interpretive Data Fasting glucose >/= 126 mg/dl is diagnostic for diabetes. Fasting is defined as no caloric intake for at least 8 hours. Fasting glucose between 100 mg/dl to 125 mg/dl is diagnostic of prediabetes. In a patient with classic symptoms of hyperglycemia or hyperglycemic crisis, a random glucose >/= 200 mg/dl is diagnostic for diabetes. In the absence of unequivocal hyperglycemia, results should be confirmed by repeat testing. The classification and Diagnosis of Diabetes Diabetes Care 2021; 46: S19-S40. Current interpretive data was last revised 2022. Calcium 8.2(L) 8.5 - 10.3 mg/dL [facility] Blood 04/05/2025 10:4 7 PM CDT 04/05/2025 10:47 PM CDT Alexandr Shafer MD LAB BLOOD ORDERABLES Final R esult MICHAEL [address]ILL [address] [place] [address] * POCT glucose (04/05/2025 10:38 PM CDT) Glucose, POC 112 70 - 199 mg/dL Blood 04/05/2025 10:3 8 PM CDT 04/05/2025 10:38 PM CDT Alexandr Shafer MD LAB POCT ORDERABLES - DEVICE Final Result Performing Organization Address [facility] Co de Phone Number MICHAEL DILL [address] [address] [facility] [place] [address] * POCT glucose (04/05/2025 9:38 PM CDT) Glucose, POC 118 70 - 199 mg/dL Blood 04/05/2025 9:38 PM CDT 04/05/2025 9:38 PM CDT Alexandr Shafer MD LAB POCT ORDERABLES - DEVICE Final Result Performing Organization Address [facility] Co de Phone Number MICHAEL DILL [address] [address] [facility] [place] [address] * POCT glucose (04/05/2025 8:35 PM CDT) Glucose, POC 125 70 - 199 mg/dL Blood 04/05/2025 8:35 PM CDT 04/05/2025 8:35 PM CDT Alexandr Shafer MD LAB POCT ORDERABLES - DEVICE Final Result Performing Organization Address [facility] Co de Phone Number MICHAEL DILL [address] [address] [facility] [place] [address] * Critical Care (04/05/2025 7:38 PM CDT) Narrative Liat Schulte MD - 04/05/2025 7:38 PM CDT Liat Schulte MD 04/05/2025 11:34 PM Critical Care Performed by: Javier Jimenez PA Authorized by: Javier Jimenez PA CRITICAL CARE: Team: MIKAEL Shift: PM Level of Billing: Critical Care My time spent with this patient was 60 minutes: Critical Provider Statement: I have seen and examined the patient on this day of service. I have reviewed and confirmed the history, physical exam, laboratory and radiologic data as documented in the signed ICU note. I have reviewed and discussed my treatment plan with the ICU team and other medical/interventional sale consultant staff, making frequent assessments and decisions regarding this patient's complex medical care. Critical Care time was exclusive of time spent performing separately billed procedures, treating other patients, and teaching. This time was in addition to and separate from critical care provided by other practitioners in my group on this day of service. Critical Care was necessary to treat or prevent imminent or life-threatening deterioration of the following conditions: I spent time reviewing and interpreting data from bedside monitors, laboratory results, and imaging, I spent time discussing the management of this critically ill patient with consultants and the medical staff and I spent time documenting in the medical record Javier BAKER IN CLINIC/BEDSIDE ORDERABL ES Final Result * POCT glucose (04/05/2025 7:34 PM CDT) Glucose, POC 175 70 - 199 mg/dL Blood 04/05/2025 7:34 PM CDT 04/05/2025 7:34 PM CDT Alexandr Shafer MD LAB POCT ORDERABLES - DEVICE Final Result Performing Organization Address [facility] Co de Phone [place] [address] [address] [address] * POCT glucose (04/05/2025 6:37 PM CDT) Glucose, POC 146 70 - 199 mg/dL Blood 04/05/2025 6:37 PM CDT 04/05/2025 6:37 PM CDT Alexandr Shafer MD LAB POCT ORDERABLES - DEVICE Final Result Performing Organization Address [facility] [place] [address] [address] [place] [address] * POCT glucose (04/05/2025 5:20 PM CDT) Glucose, POC 90 70 - 199 mg/dL Blood 04/05/2025 5:20 PM CDT 04/05/2025 5:20 PM CDT us Alexandr Shafer MD LAB POCT ORDERABLES - DEVICE Final Result Performing Organization Address [facility] de Phone Number MICHAEL DILL [address] [address] [facility] [address] [place], [place] [id number] * POCT glucose (04/05/2025 4:42 PM CDT) Glucose, POC 99 70 - 199 mg/dL Blood 04/05/2025 4:42 PM CDT 04/05/2025 4:42 PM CDT Alexandr Shafer MD LAB POCT ORDERABLES - DEVICE Final Result Performing Organization Address [facility] Phone Number MICHAEL [phone] [address] [facility] [place] [address] * POCT glucose (04/05/2025 3:35 PM CDT) Glucose, POC 113 70 - 199 mg/dL Blood 04/05/2025 3:35 PM CDT 04/05/2025 3:35 PM CDT Alexandr Shafer MD LAB POCT ORDERABLES - DEVICE Final Result Performing Organization Address [facility] Phone Number MICHAEL [address] [address] [facility] [place] [address] * (ABNORMAL) Calcium, ionized, whole blood (04/05/2025 2:42 PM CDT) Pathologist [facility] Ca, ionized, bld 4.29(L) 4.50 - 5.10 mg/dL Blood 04/05/2025 2:42 PM CDT 04/05/2025 2:44 PM CDT Alexandr Shafer MD LAB BLOOD ORDERABLES Final R esult Performing Organization Address [facility] Co de Phone Number MICHAEL DILL [address] [place] [address] * (ABNORMAL) Blood gas, arterial (04/05/2025 2:42 PM CDT) pH, Art 7.45 7.35 - 7.45 PCO2, Arterial 31(L) 35 - 45 mmHg [facility] PO2, Arterial 69(L) 83 - 108 mmHg [facility] HCO3 Art (Calculated) 23 20 - 30 mmol/L [facility] BE, art -2 mmol/L [facility] Comment: Interpretive Data No Reference Range Established Current Interpretive Data was last revised on 2017 O2 Sat Art (Measured) 95 90 - 95 % [facility] Blood 04/05/2025 2:42 PM CDT 04/05/2025 2:44 PM CDT Alexandr Shafer MD LAB BLOOD ORDERABLES Final R esult Performing Organization Address [facility] Co de Phone Number MICHAEL DILL [address] [place] [address] * eGFR (04/05/2025 2:33 PM CDT) eGFR 69 >=60 mL/min/1. 73 m2 Comment: Interpretive Data Reference Interval Normal >/= 90 mL/min/1.73m2 Mildly decreased* 60 - 89 mL/min/1.73m2 Mildly to moderately decreased 45 - 59 mL/min/1.73m2 Moderately to severely decreased 30 - 44 mL/min/1.73m2 Severely decreased 15 - 29 mL/min/1.73m2 Kidney Failure < 15 mL/min/1.73m2 *Relative to young adult level Estimated glomerular filtration rate is determined by the 2020 CKD-EPI equation recommended by the National Kidney Foundation (A Unifying Approach to GFR Estimation: Recommendations of the NKF-ASK Task Force on Reassessing the Inclusion of Race in Diagnosing Kidney Disease, JASN 2020). The CKD-EPI equation should not be used for patients with unstable renal function and has not been validated in children and those over 70. Current interpretive data was last reviewed 2021. Blood 04/05/2025 2:33 PM CDT 04/05/2025 2:48 PM CDT Sejal Vail ACUPRESSURE THERAPIST LAB BLOOD ORDERABLES Final Result Performing Organization Address City/[facility]/ZIP Co de Phone Number MICHAEL [address] [place] [address] * (ABNORMAL) CBC without differential (04/05/2025 2:33 PM CDT) [facility] WBC 21.09(H) 3.80 - 9.90 K/cumm Hgb 11.6(L) 13.0 - 17.5 g/dL [facility] Hct 35.0(L) 38.9 - 50.3 % [facility] Plt 153 150 - 400 K/cumm [facility] MPV 9.4 9.1 - 12.3 fL [facility] RBC 3.66(L) 4.30 - 5.80 M/cumm [facility] MCV 95.6 81.3 - 96.4 fL [facility] MCH 31.7 27.1 - 33.3 pg [facility] MCHC 33.1 32.3 - 35.7 g/dL [facility] RDW CV 13.4 11.1 - 14.9 % [facility] RDW SD 47.2 35.7 - 48.1 fL [facility] NRBC abs 0.00 0.00 - 0.01 K/cumm [facility] Blood 04/05/2025 2:33 PM CDT 04/05/2025 2:44 PM CDT Sejalricardo Palma Yared ACUPRESSURE THERAPIST LAB BLOOD ORDERABLES Final Result Performing Organization Address City/[facility]/ZIP Co de Phone Number MICHAEL [address] [place] [address] * (ABNORMAL) Basic metabolic panel (04/05/2025 2:33 PM CDT) Sodium 139 135 - 145 mmol/L Potassium, pl 3.3 3.3 - 4.9 mmol/L [facility] Chloride 102 97 - 110 mmol/L [facility] CO2 18(L) 22 - 32 mmol/L [facility] Anion gap 19(H) 2 - 15 mmol/L [facility] BUN 21 6 - 25 mg/dL [facility] Creatinine 1.13 0.80 - 1.30 mg/dL [facility] Glucose 146 70 - 199 mg/dL [facility] Comment: Interpretive Data Fasting glucose >/= 126 mg/dl is diagnostic for diabetes. Fasting is defined as no caloric intake for at least 8 hours. Fasting glucose between 100 mg/dl to 125 mg/dl is diagnostic of prediabetes. In a patient with classic symptoms of hyperglycemia or hyperglycemic crisis, a random glucose >/= 200 mg/dl is diagnostic for diabetes. In the absence of unequivocal hyperglycemia, results should be confirmed by repeat testing. The classification and Diagnosis of Diabetes Diabetes Care 2021; 46: S19-S40. Current interpretive data was last revised 2022. Calcium 8.2(L) 8.5 - 10.3 mg/dL [facility] Blood 04/05/2025 2:33 PM CDT 04/05/2025 2:44 PM CDT us Sejal Vail NP LAB BLOOD ORDERABLES Final Result Performing Organization Address City/[facility] Co de Phone Number [facility] [address] [employer] [place], [place] [phone] * POCT glucose (04/05/2025 2:24 PM CDT) Glucose, POC 184 70 - 199 mg/dL Blood 04/05/2025 2:24 PM CDT 04/05/2025 2:24 PM CDT Alexandr Shafer MD LAB POCT ORDERABLES - DEVICE Final Result Performing Organization Address City/[facility]/ZIP Co de Phone Number [facility] [address] [place] [address] * (ABNORMAL) POCT glucose (04/05/2025 1:21 PM CDT) Glucose, POC 200(H) 70 - 199 mg/dL Blood 04/05/2025 1:21 PM CDT 04/05/2025 1:21 PM CDT Alexandr Shafer MD LAB POCT ORDERABLES - DEVICE Final Result Performing Organization Address City/[facility] Co de Phone Number MICHAEL DILL [address] [address] [facility] [place] [address] * POCT glucose (04/05/2025 12:16 PM CDT) Glucose, POC 146 70 - 199 mg/dL Blood 04/05/2025 12:1 6 PM CDT 04/05/2025 12:16 PM CDT Alexandr Shafer MD LAB POCT ORDERABLES - DEVICE Final Result Performing Organization Address [facility] de Phone Number DELPHINELUIS DILL [address] [address] [facility] [place] [address] * POCT glucose (04/05/2025 11:31 AM CDT) Glucose, POC 152 70 - 199 mg/dL Blood 04/05/2025 11:3 1 AM CDT 04/05/2025 11:31 AM CDT Alexandr Shafer MD LAB POCT ORDERABLES - DEVICE Final Result Performing Organization Address [facility] de Phone Number MICHAEL DILL [address] [address] [facility] [place] [address] * POCT glucose (04/05/2025 10:11 AM CDT) Glucose, POC 149 70 - 199 mg/dL Blood 04/05/2025 10:1 1 AM CDT 04/05/2025 10:11 AM CDT us Alexandr Shafer MD LAB POCT ORDERABLES [place] [address] [address] [place] [address] * Critical Care (04/05/2025 9:59 AM CDT) Narrative Sergey Browne MD - 04/05/2025 9:59 AM CDT Sergey Browne MD 04/05/2025 10:14 PM Critical Care Performed by: Bernabe Russo APRN Authorized by: Bernabe Russo APRN CRITICAL CARE: Team: MIKAEL Shift: PM Level of Billing: Critical Care My time spent with this patient was 65 minutes: Critical Provider Statement: I have seen and examined the patient on this day of service. I have reviewed and confirmed the history, physical exam, laboratory and radiologic data as documented in the signed ICU note. I have reviewed and discussed my treatment plan with the ICU team and other medical/interventional sale consultant staff, making frequent assessments and decisions regarding this patient's complex medical care. Critical Care time was exclusive of time spent performing separately billed procedures, treating other patients, and teaching. This time was in addition to and separate from critical care provided by other practitioners in my group on this day of service. Critical Care was necessary to treat or prevent imminent or life-threatening deterioration of the following conditions: I spent time reviewing and interpreting data from bedside monitors, laboratory results, and imaging, I spent time discussing the management of this critically ill patient with consultants and the medical staff and I spent time documenting in the medical record us Bernabe Russo APRN IN CLINIC/BEDSIDE ORDERABLES Final Result * ECG 12 lead (04/05/2025 9:17 AM CDT) 04/05/2025 9:17 AM CDT Narrative [facility] - 04/05/2025 6:50 PM CDT Vent Rate: 80 bpm RR Interval: 745 msec MD Interval: 0 msec QRS Duration: 98 msec QT Interval: 380 msec QTC Interval: 416 msec P-R-T [place]: 0 - -56 - 7 degrees IMPRESSION: Sinus rhythm Left axis deviation Artifact Electronically Signed By: Dr. Melo Hays [facility] us Alexandr Shafer MD ECG ORDERABLES Final Result [facility] * POCT glucose (04/05/2025 7:20 AM CDT) Glucose, POC 127 70 - 199 mg/dL Blood 04/05/2025 7:20 AM CDT 04/05/2025 7:20 AM CDT Alexandr Shafer MD LAB POCT ORDERABLES - DEVICE Final Result Performing Organization Address City/[facility] Co de Phone Number MICHAEL [address] [facility] [place] [address] * XR Chest 1 View - Portable - in AM (04/05/2025 6:14 AM CDT) Anatomical Region Laterality Modality Body, Chest N/A Computed Radiogr aphy 04/05/2025 8:37 AM CDT Impressions 04/05/2025 8:37 AM CDT Findings as described above. Electronically signed by: Doris Monique M.D. Narrative 04/05/2025 8:37 AM CDT EXAMINATION: XR CHEST 1 VIEW HISTORY: The patient is a 69-year-old male who has had cardiac surgery. Comparison made with the previous study dated 04/04/2025. TECHNIQUE: AP portable view of the chest. FINDINGS: Bilateral thoracostomy tubes in place. The distal tip of the [place] catheter is in the main pulmonary artery. Cardiomegaly with no failure. Left lower lobe infiltrates seen with the remainder of the lungs being clear. The endotracheal tube has been removed. Procedure Note Doris Monique MD - 04/05/2025 EXAMINATION: XR CHEST 1 VIEW HISTORY: The patient is a 69-year-old male who has had cardiac surgery. Comparison made with the previous study dated 04/04/2025. TECHNIQUE: AP portable view of the chest. FINDINGS: Bilateral thoracostomy tubes in place. The distal tip of the [place] catheter is in the main pulmonary artery. Cardiomegaly with no failure. Left lower lobe infiltrates seen with the remainder of the lungs being clear. The endotracheal tube has been removed. IMPRESSION: Findings as described above. Electronically signed by: Doris Monique M.D. Alexandr Shafer MD IMG XR PROCEDURES Final Resu lt * POCT glucose (04/05/2025 6:02 AM CDT) Glucose, POC 135 70 - 199 mg/dL Blood 04/05/2025 6:02 AM CDT 04/05/2025 6:02 AM CDT Alexandr Shafer MD LAB POCT ORDERABLES - DEVICE Final Result Performing Organization Address [facility] de Phone Number [facility] [address] [address] [facility] [place] [address] * POCT glucose (04/05/2025 5:03 AM CDT) Glucose, POC 141 70 - 199 mg/dL Blood 04/05/2025 5:03 AM CDT 04/05/2025 5:03 AM CDT Alexandr Shafer MD LAB POCT ORDERABLES - DEVICE Final Result Performing Organization Address [facility] [place] [address] [address] [place] [address] * POCT glucose (04/05/2025 3:58 AM CDT) Glucose, POC 129 70 - 199 mg/dL Blood 04/05/2025 3:58 AM CDT 04/05/2025 3:58 AM CDT Alexandr Shafer MD LAB POCT ORDERABLES - DEVICE Final Result Performing Organization Address City/[facility] Co de Phone Number MICHAEL DILL [address] [place] [address] * eGFR (04/05/2025 3:55 AM CDT) eGFR 90 >=60 mL/min/1. 73 m2 Comment: Interpretive Data Reference Interval Normal >/= 90 mL/min/1.73m2 Mildly decreased* 60 - 89 mL/min/1.73m2 Mildly to moderately decreased 45 - 59 mL/min/1.73m2 Moderately to severely decreased 30 - 44 mL/min/1.73m2 Severely decreased 15 - 29 mL/min/1.73m2 Kidney Failure < 15 mL/min/1.73m2 *Relative to young adult level Estimated glomerular filtration rate is determined by the 2020 CKD-EPI equation recommended by the National Kidney Foundation (A Unifying Approach to GFR Estimation: Recommendations of the NKF-ASK Task Force on Reassessing the Inclusion of Race in Diagnosing Kidney Disease, JASN 2020). The CKD-EPI equation should not be used for patients with unstable renal function and has not been validated in children and those over 70. Current interpretive data was last reviewed 2021. Blood 04/05/2025 3:55 AM CDT 04/05/2025 4:08 AM CDT Alexandr Shafer MD LAB BLOOD ORDERABLES Final R esult Performing Organization Address City/[facility]/ZIP Co de Phone Number MICHAEL DILL [address] [address] [place], [place] [phone] * (ABNORMAL) Differential, auto (04/05/2025 3:55 AM CDT) Neutrophil abs 15.19(H) 1.50 - 6.50 K/cumm Imm gran abs 0.10 0.00 - 0.10 K/cumm [facility] Lymphocyte abs 1.00 0.80 - 3.30 K/cumm [facility] Monocyte abs 1.64(H) 0.20 - 0.80 K/cumm [facility] Eosinophil abs 0.00 0.00 - 0.50 K/cumm [facility] Basophil abs 0.02 0.00 - 0.10 K/cumm [facility] Neutrophil pct 84.6 % [facility] Comment: Interpretive Data Percent cell count reference ranges are not reported, since discordance with absolute values may lead to misinterpretation of CBC data. Current Interpretive Data was last revised on 2017. Imm gran pct 0.6 % [facility] Comment: Interpretive Data Percent cell count reference ranges are not reported, since discordance with absolute values may lead to misinterpretation of CBC data. Current Interpretive Data was last revised on 2017. Lymphocyte pct 5.6 % [facility] Comment: Interpretive Data Percent cell count reference ranges are not reported, since discordance with absolute values may lead to misinterpretation of CBC data. Current Interpretive Data was last revised on 2017. Monocyte pct 9.1 % [facility] Comment: Interpretive Data Percent cell count reference ranges are not reported, since discordance with absolute values may lead to misinterpretation of CBC data. Current Interpretive Data was last revised on 2017. Eosinophil pct 0.0 % [facility] Comment: Interpretive Data Percent cell count reference ranges are not reported, since discordance with absolute values may lead to misinterpretation of CBC data. Current Interpretive Data was last revised on 2017. Basophil pct 0.1 % [facility] Comment: Interpretive Data Percent cell count reference ranges are not reported, since discordance with absolute values may lead to misinterpretation of CBC data. Current Interpretive Data was last revised on 2017. Blood 04/05/2025 3:55 AM CDT 04/05/2025 4:07 AM CDT us Alexandr Shafer MD LAB BLOOD ORDERABLES Final R esult MICHAEL DILL [address] [address] Department [place] [address] * (ABNORMAL) CBC with auto differential (04/05/2025 3:55 AM CDT) WBC 17.95(H) 3.80 - 9.90 K/cumm Hgb 12.5(L) 13.0 - 17.5 g/dL [facility] Hct 36.7(L) 38.9 - 50.3 % [facility] CH Plt 157 150 - 400 K/cumm [facility] CH MPV 9.5 9.1 - 12.3 fL [facility] RBC 3.88(L) 4.30 - 5.80 M/cumm [facility] MCV 94.6 81.3 - 96.4 fL [facility] MCH 32.2 27.1 - 33.3 pg [facility] MCHC 34.1 32.3 - 35.7 g/dL [facility] CH RDW CV 13.2 11.1 - 14.9 % [facility] CH RDW SD 45.4 35.7 - 48.1 fL [facility] NRBC abs 0.00 0.00 - 0.01 K/cumm [facility] Blood 04/05/2025 3:55 AM CDT 04/05/2025 4:07 AM CDT Alexandr Shafer MD LAB BLOOD ORDERABLES Final R esult Performing Organization Address City/[facility]/ZIP Co de Phone Number DELPHINELUIS DILL [address] [address] [employer] [place], [place] [id number] * Magnesium (04/05/2025 3:55 AM CDT) Magnesium 2.2 1.4 - 2.5 mg/dL Blood 04/05/2025 3:55 AM CDT 04/05/2025 4:06 AM CDT Alexandr Shafer MD LAB BLOOD ORDERABLES Final R esult Performing Organization Address City/[facility]/ZIP Co de Phone Number MICHAEL DILL [address] [place] [address] * Basic metabolic panel (04/05/2025 3:55 AM CDT) Sodium 141 135 - 145 mmol/L Potassium, pl 3.8 3.3 - 4.9 mmol/L [facility] Chloride 106 97 - 110 mmol/L [facility] CO2 22 22 - 32 mmol/L [facility] Anion gap 13 2 - 15 mmol/L [facility] BUN 17 6 - 25 mg/dL [facility] Creatinine 0.91 0.80 - 1.30 mg/dL [facility] Glucose 139 70 - 199 mg/dL [facility] Comment: Interpretive Data Fasting glucose >/= 126 mg/dl is diagnostic for diabetes. Fasting is defined as no caloric intake for at least 8 hours. Fasting glucose between 100 mg/dl to 125 mg/dl is diagnostic of prediabetes. In a patient with classic symptoms of hyperglycemia or hyperglycemic crisis, a random glucose >/= 200 mg/dl is diagnostic for diabetes. In the absence of unequivocal hyperglycemia, results should be confirmed by repeat testing. The classification and Diagnosis of Diabetes Diabetes Care 2021; 46: S19-S40. Current interpretive data was last revised 2022. Calcium 8.7 8.5 - 10.3 mg/dL [facility] Blood 04/05/2025 3:55 AM CDT 04/05/2025 4:06 AM CDT Alexandr Shafer MD LAB BLOOD ORDERABLES Final R esult Performing Organization Address [facility] Co de Phone Number MICHAEL [address] [address] [place] [address] * POCT glucose (04/05/2025 2:44 AM CDT) Glucose, POC 112 70 - 199 mg/dL Blood 04/05/2025 2:44 AM CDT 04/05/2025 2:44 AM CDT Alexandr Shafer MD LAB POCT ORDERABLES - DEVICE Final Result Performing Organization Address [facility] Co de Phone Number MICHAEL DILL [address] [place] [address] * POCT glucose (04/05/2025 1:40 AM CDT) Glucose, POC 133 70 - 199 mg/dL Blood 04/05/2025 1:40 AM CDT 04/05/2025 1:40 AM CDT us Alexandr Shafer MD LAB POCT ORDERABLES - DEVICE Final Result Performing Organization Address [facility] Phone Number MICHAEL [address] [address] [facility] [place] [address] * POCT glucose (04/05/2025 12:28 AM CDT) Glucose, POC 144 70 - 199 mg/dL Blood 04/05/2025 12:2 8 AM CDT 04/05/2025 12:28 AM CDT us Alexandr Shafer MD LAB POCT ORDERABLES - DEVICE Final Result Performing Organization Address [facility] Phone Number MICHAEL [address] [address] [facility] [place] [address] * POCT glucose (04/04/2025 11:23 PM CDT) Glucose, POC 176 70 - 199 mg/dL Blood 04/04/2025 11:2 3 PM CDT 04/04/2025 11:23 PM CDT us Alexandr Shafer MD LAB POCT ORDERABLES - DEVICE Final Result Performing Organization Address [facility] de Phone Number MICHAEL [address] [address] [facility] [place] [address] * POCT glucose (04/04/2025 10:24 PM CDT) Glucose, POC 184 70 - 199 mg/dL Blood 04/04/2025 10:2 4 PM CDT 04/04/2025 10:24 PM CDT us Alexandr Shafer MD LAB POCT ORDERABLES - DEVICE Final Result Performing Organization Address [facility] Co de Phone Number MICHAEL DILL [address] [address] [place] [address] * (ABNORMAL) Blood gas, arterial (04/04/2025 9:45 PM CDT) pH, Art 7.35 7.35 - 7.45 PCO2, Arterial 37 35 - 45 mmHg [facility] PO2, Arterial 78(L) 83 - 108 mmHg [facility] HCO3 Art (Calculated) 21 20 - 30 mmol/L [facility] BE, art -5 mmol/L [facility] Comment: Interpretive Data No Reference Range Established Current Interpretive Data was last revised on 2017 O2 Sat Art (Measured) 95 90 - 95 % [facility] Blood 04/04/2025 9:45 PM CDT 04/04/2025 9:49 PM CDT Alexandr Shafer MD LAB BLOOD ORDERABLES Final R esult Performing Organization Address [facility] Co de Phone Number MICHAEL DILL [address] [address] [place], [place] [phone] * POCT glucose (04/04/2025 9:14 PM CDT) Glucose, POC 180 70 - 199 mg/dL Blood 04/04/2025 9:14 PM CDT 04/04/2025 9:14 PM CDT Alexandr Shafer MD LAB POCT ORDERABLES - DEVICE Final Result Performing Organization Address [facility] Co de Phone Number MICHAEL DILL [address] [address] [place], [place] [phone] * Transfuse platelets (04/04/2025 8:45 PM CDT) Blood Alexandr Shafer MD BLOOD TRANSFUSION ORDERABLES Final Result Performing Organization Address [facility] Co de Phone Number MICHAEL DILL [address] [place] [address] * Critical Care (04/04/2025 8:15 PM CDT) Narrative Liat Schulte MD - 04/04/2025 8:15 PM CDT Liat Schulte MD 04/05/2025 1:04 AM Critical Care Performed by: Javier Jimenez PA Authorized by: Javier Jimenez PA CRITICAL CARE: Team: MIKAEL Shift: PM Level of Billing: Critical Care My time spent with this patient was 60 minutes: Critical Provider Statement: I have seen and examined the patient on this day of service. I have reviewed and confirmed the history, physical exam, laboratory and radiologic data as documented in the signed ICU note. I have reviewed and discussed my treatment plan with the ICU team and other medical/interventional sale consultant staff, making frequent assessments and decisions regarding this patient's complex medical care. Critical Care time was exclusive of time spent performing separately billed procedures, treating other patients, and teaching. This time was in addition to and separate from critical care provided by other practitioners in my group on this day of service. Critical Care was necessary to treat or prevent imminent or life-threatening deterioration of the following conditions: I spent time reviewing and interpreting data from bedside monitors, laboratory results, and imaging, I spent time discussing the management of this critically ill patient with consultants and the medical staff and I spent time documenting in the medical record Javier BAKER IN CLINIC/BEDSIDE ORDERABL ES Final Result * POCT glucose (04/04/2025 8:11 PM CDT) [facility] Glucose, POC 159 70 - 199 mg/dL Blood 04/04/2025 8:11 PM CDT 04/04/2025 8:11 PM CDT us Alexandr Shafer MD LAB POCT ORDERABLES - DEVICE Final Result MICHAEL [address] [address] [place] [address] * POCT glucose (04/04/2025 7:04 PM CDT) [facility] Glucose, POC 140 70 - 199 mg/dL Blood 04/04/2025 7:04 PM CDT 04/04/2025 7:04 PM CDT Alexandr Shafer MD LAB POCT ORDERABLES - DEVICE Final Result Performing Organization Address [facility] Co de Phone Number MICHAEL DILL [address] [address] [facility] [place] [address] * POCT glucose (04/04/2025 6:02 PM CDT) [facility] Glucose, POC 158 70 - 199 mg/dL Blood 04/04/2025 6:02 PM CDT 04/04/2025 6:02 PM CDT Alexandr Shafer MD LAB POCT ORDERABLES - DEVICE Final Result Performing Organization Address [facility] de Phone Number DELPHINELUIS DILL [address] [address] [facility] [place] [address] * (ABNORMAL) Calcium, ionized, whole blood (04/04/2025 5:32 PM CDT) [facility] Ca, ionized, bld 5.16(H) 4.50 - 5.10 mg/dL Blood 04/04/2025 5:32 PM CDT 04/04/2025 5:47 PM CDT Alexandr Shafer MD LAB BLOOD ORDERABLES Final R esult Performing Organization Address [facility] Co de Phone Number DELPHINELUIS DILL [address] [address] [facility] [place] [address] * eGFR (04/04/2025 5:32 PM CDT) [facility] eGFR >90 >=60 mL/min/1. 73 m2 Comment: Interpretive Data Reference Interval Normal >/= 90 mL/min/1.73m2 Mildly decreased* 60 - 89 mL/min/1.73m2 Mildly to moderately decreased 45 - 59 mL/min/1.73m2 Moderately to severely decreased 30 - 44 mL/min/1.73m2 Severely decreased 15 - 29 mL/min/1.73m2 Kidney Failure < 15 mL/min/1.73m2 *Relative to young adult level Estimated glomerular filtration rate is determined by the 2020 CKD-EPI equation recommended by the National Kidney Foundation (A Unifying Approach to GFR Estimation: Recommendations of the NKF-ASK Task Force on Reassessing the Inclusion of Race in Diagnosing Kidney Disease, JASN 202). The CKD-EPI equation should not be used for patients with unstable renal function and has not been validated in children and those over 70. Current interpretive data was last reviewed 2021. Blood 04/04/2025 5:32 PM CDT 04/04/2025 5:50 PM CDT us Alexandr Shafer MD LAB BLOOD ORDERABLES Final R esult [facility] [id number] [address] Department [place] [address] * (ABNORMAL) CBC without differential (04/04/2025 5:32 PM CDT) WBC 17.27(H) 3.80 - 9.90 K/cumm Hgb 12.1(L) 13.0 - 17.5 g/dL [facility] Hct 35.5(L) 38.9 - 50.3 % [facility] Plt 144(L) 150 - 400 K/cumm [facility] MPV 9.1 9.1 - 12.3 fL [facility] RBC 3.72(L) 4.30 - 5.80 M/cumm [facility] MCV 95.4 81.3 - 96.4 fL [facility] MCH 32.5 27.1 - 33.3 pg [facility] MCHC 34.1 32.3 - 35.7 g/dL [facility] RDW CV 12.8 11.1 - 14.9 % [facility] RDW SD 44.8 35.7 - 48.1 fL [facility] NRBC abs 0.00 0.00 - 0.01 K/cumm [facility] Blood 04/04/2025 5:32 PM CDT 04/04/2025 5:50 PM CDT Alexandr Shafer MD LAB BLOOD ORDERABLES Final R esult Performing Organization Address [facility] de Phone Number MICHAEL [phone] [place] [address] * (ABNORMAL) Blood gas, arterial (04/04/2025 5:32 PM CDT) pH, Art 7.37 7.35 - 7.45 PCO2, Arterial 40 35 - 45 mmHg [facility] PO2, Arterial 64(L) 83 - 108 mmHg [facility] HCO3 Art (Calculated) 23 20 - 30 mmol/L [facility] BE, art -2 mmol/L [facility] Comment: Interpretive Data No Reference Range Established Current Interpretive Data was last revised on 2017 O2 Sat Art (Measured) 91 90 - 95 % [facility] Blood 04/04/2025 5:32 PM CDT 04/04/2025 6:55 PM CDT Alexandr Shafer MD LAB BLOOD ORDERABLES Final R esult Performing Organization Address [facility] de Phone Number MICHAEL [address] [address] [place] [address] * (ABNORMAL) Basic metabolic panel (04/04/2025 5:32 PM CDT) Sodium 141 135 - 145 mmol/L Potassium, pl 3.6 3.3 - 4.9 mmol/L [facility] Chloride 109 97 - 110 mmol/L [facility] CO2 18(L) 22 - 32 mmol/L [facility] Anion gap 14 2 - 15 mmol/L [facility] BUN 17 6 - 25 mg/dL [facility] Creatinine 0.73(L) 0.80 - 1.30 mg/dL [facility] Glucose 160 70 - 199 mg/dL [facility] Comment: Interpretive Data Fasting glucose >/= 126 mg/dl is diagnostic for diabetes. Fasting is defined as no caloric intake for at least 8 hours. Fasting glucose between 100 mg/dl to 125 mg/dl is diagnostic of prediabetes. In a patient with classic symptoms of hyperglycemia or hyperglycemic crisis, a random glucose >/= 200 mg/dl is diagnostic for diabetes. In the absence of unequivocal hyperglycemia, results should be confirmed by repeat testing. The classification and Diagnosis of Diabetes Diabetes Care 2021; 46: S19-S40. Current interpretive data was last revised 2022. Calcium 8.3(L) 8.5 - 10.3 mg/dL [facility] Blood 04/04/2025 5:32 PM CDT 04/04/2025 5:50 PM CDT Alexandr Shafer MD LAB BLOOD ORDERABLES Final R esult Performing Organization Address [facility] de Phone Number MICHAEL DILL [address] [address] [place] [place] [address] * (ABNORMAL) Blood gas, arterial (04/04/2025 4:31 PM CDT) pH, Art 7.38 7.35 - 7.45 PCO2, Arterial 36 35 - 45 mmHg [facility] PO2, Arterial 91 83 - 108 mmHg [facility] HCO3 Art (Calculated) 22 20 - 30 mmol/L [facility] BE, art -3 mmol/L [facility] Comment: Interpretive Data No Reference Range Established Current Interpretive Data was last revised on 2017 O2 Sat Art (Measured) 97(H) 90 - 95 % [facility] Blood 04/04/2025 4:31 PM CDT 04/04/2025 4:46 PM CDT Alexandr Shafer MD LAB BLOOD ORDERABLES Final R esult Performing Organization Address City/[facility] Co de Phone Number MICHAEL DILL [address] [address] Department [employer] [place], [place] [id number] * POCT glucose (04/04/2025 4:17 PM CDT) Glucose, POC 178 70 - 199 mg/dL Blood 04/04/2025 4:17 PM CDT 04/04/2025 4:17 PM CDT Alexandr Shafer MD LAB POCT ORDERABLES - DEVICE Final Result Performing Organization Address [facility] de Phone Number MICHAEL [address] [address] [facility] [place] [address] * Prepare platelets: 1 Units (04/04/2025 2:39 PM CDT) Pathologist [facility] Product code [id number] Unit Number [id number] [facility] Product Blood Type APOS [facility] Dispense Status PRESUMED TRANSFUSED [facility] Blood Venous blood specimen / Unknown 04/04/2025 2:39 PM CDT Narrative [facility] - 04/07/2025 10:16 PM CDT Other indication->post opcardiovascular surgery Are special requirements needed? (all products are leukoreduced)->No Date required:-20250404 PLT # of Units:-1-Units Reasons:-Other (Specify)} Yuri Zapata MD BLOOD BANK PRODUCT ORDERABLES Final Result Performing Organization Address [facility] de Phone Number MICHAEL DILL [address] [address] [facility] [place] [address] * XR Chest 1 View - Portable (04/04/2025 2:20 PM CDT) Anatomical Region Laterality Modality Body, Chest N/A Computed Radiogr aphy 04/04/2025 3:15 PM CDT Impressions 04/04/2025 3:15 PM CDT Postoperative change with patchy perihilar opacities probably atelectasis. No pneumothorax. Electronically signed by: Xiomara Ackerman M.D. Narrative 04/04/2025 3:15 PM CDT Examination: XR CHEST 1 VIEW Date: 04/04/2025 2:10 PM History: s/p cardiac surg Comparison: None. Findings: Cardiomegaly, sternotomy, mediastinal drain, bilateral thoracostomy tubes, and right IJ pulmonary artery catheter seen in the pulmonary outflow tract. An ET tube is 5.8 cm from the debi. Ill-defined patchy perihilar opacities noted worse left . No pneumothorax is seen. Procedure Note Xiomara Ackerman MD - 04/04/2025 Examination: XR CHEST 1 VIEW Date: 04/04/2025 2:10 PM History: s/p cardiac surg Comparison: None. Findings: Cardiomegaly, sternotomy, mediastinal drain, bilateral thoracostomy tubes, and right IJ pulmonary artery catheter seen in the pulmonary outflow tract. An ET tube is 5.8 cm from the debi. Ill-defined patchy perihilar opacities noted worse left . No pneumothorax is seen. IMPRESSION: Postoperative change with patchy perihilar opacities probably atelectasis. No pneumothorax. Electronically signed by: Xiomara Ackerman M.D. Alexandr Shafer MD IMG XR PROCEDURES Final Resu lt * (ABNORMAL) Calcium, ionized, whole blood (04/04/2025 2:08 PM CDT) Ca, ionized, bld 4.26(L) 4.50 - 5.10 mg/dL Blood 04/04/2025 2:08 PM CDT 04/04/2025 2:36 PM CDT Alexandr Shafer MD LAB BLOOD ORDERABLES Final R esult MICHAEL [id number] [address] [place] [address] * Magnesium (04/04/2025 2:08 PM CDT) Magnesium 2.5 1.4 - 2.5 mg/dL Blood 04/04/2025 2:08 PM CDT 04/04/2025 2:35 PM CDT Alexandr Shafer MD LAB BLOOD ORDERABLES Final R esult Performing Organization Address City/[facility]/ZIP Co de Phone Number MICHAEL DILL [address] [place] [address] * eGFR (04/04/2025 2:06 PM CDT) eGFR >90 >=60 mL/min/1. 73 m2 Comment: Interpretive Data Reference Interval Normal >/= 90 mL/min/1.73m2 Mildly decreased* 60 - 89 mL/min/1.73m2 Mildly to moderately decreased 45 - 59 mL/min/1.73m2 Moderately to severely decreased 30 - 44 mL/min/1.73m2 Severely decreased 15 - 29 mL/min/1.73m2 Kidney Failure < 15 mL/min/1.73m2 *Relative to young adult level Estimated glomerular filtration rate is determined by the 2020 CKD-EPI equation recommended by the National [employer] (A Unifying Approach to GFR Estimation: Recommendations of the NKF-ASK Task Force on Reassessing the Inclusion of Race in Diagnosing Kidney Disease, JASN 2020). The CKD-EPI equation should not be used for patients with unstable renal function and has not been validated in children and those over 70. Current interpretive data was last reviewed 2021. Blood 04/04/2025 2:06 PM CDT 04/04/2025 2:35 PM CDT Alexandr Shafer MD LAB BLOOD ORDERABLES Final R esult Performing Organization Address City/[facility]/ZIP Co de Phone Number MICHAEL DILL [address] [address] Department [place], [place] [id number] * aPTT (04/04/2025 2:06 PM CDT) aPTT 32 26 - 38 sec Comment: Interpretive Data Heparin therapeutic range: 66.0 - 100.0 seconds. Range based on correlation with therapeutic heparin activity range of 0.3 - 0.7 Units/mL. Current interpretive data was last revised on 2023. Blood 04/04/2025 2:06 PM CDT 04/04/2025 2:39 PM CDT us Alexandr Shafer MD LAB BLOOD ORDERABLES Final R esult Performing Organization Address City/[facility] Co de Phone Number MICHAEL DILL [address] [address] [place] [address] * (ABNORMAL) Protime-INR (04/04/2025 2:06 PM CDT) Pathologist [facility] PT 15.8(H) 10.2 - 13.5 sec INR 1.41(H) 0.90 - 1.20 [facility] Comment: Interpretive data Oral anticoagulant therapeutic ranges: Venous thromboembolism prophylaxis or treatment: 2.0-3.0 CARDIOLOGY Standard range: 2.0-3.0 High-intensity range: 2.5-3.5 Refer to indication-specific guidelines for appropriate target ranges for prosthetic heart valve replacement. Current interpretive data was last revised on 2019. Blood 04/04/2025 2:06 PM CDT 04/04/2025 2:39 PM CDT us Alexandr Shafer MD LAB BLOOD ORDERABLES Final R esult Performing Organization Address City/[facility] Co de Phone Number MICHAEL DILL [address] [address] [place] [address] * (ABNORMAL) CBC without differential (04/04/2025 2:06 PM CDT) Pathologist [facility] WBC 19.15(H) 3.80 - 9.90 K/cumm Hgb 12.6(L) 13.0 - 17.5 g/dL [facility] Hct 37.9(L) 38.9 - 50.3 % [facility] Plt 129(L) 150 - 400 K/cumm [facility] MPV 9.3 9.1 - 12.3 fL [facility] RBC 3.97(L) 4.30 - 5.80 M/cumm [facility] MCV 95.5 81.3 - 96.4 fL [facility] MCH 31.7 27.1 - 33.3 pg [facility] MCHC 33.2 32.3 - 35.7 g/dL [facility] RDW CV 12.7 11.1 - 14.9 % [facility] RDW SD 44.7 35.7 - 48.1 fL [facility] NRBC abs 0.00 0.00 - 0.01 K/cumm [facility] Blood 04/04/2025 2:06 PM CDT 04/04/2025 2:39 PM CDT Alexandr Shafer MD LAB BLOOD ORDERABLES Final R esult Performing Organization Address [facility] Co de Phone Number MICHAEL DILL [address] [address] [facility] [place] [address] * Phosphorus (04/04/2025 2:06 PM CDT) Phosphorus, pl 2.8 2.3 - 4.5 mg/dL Blood 04/04/2025 2:06 PM CDT 04/04/2025 2:35 PM CDT Alexandr Shafer MD LAB BLOOD ORDERABLES Final RUST Performing Organization Address [facility] Co de Phone Number MICHAEL DILL [address] [address] [place] [address] * (ABNORMAL) Blood gas, arterial (04/04/2025 2:06 PM CDT) pH, Art 7.36 7.35 - 7.45 PCO2, Arterial 42 35 - 45 mmHg [facility] PO2, Arterial 267(H) 83 - 108 mmHg [facility] HCO3 Art (Calculated) 23 20 - 30 mmol/L [facility] BE, art -2 mmol/L [facility] Comment: Interpretive Data No Reference Range Established Current Interpretive Data was last revised on 2017 O2 Sat Art (Measured) 100(H) 90 - 95 % [facility] Blood 04/04/2025 2:06 PM CDT 04/04/2025 2:35 PM CDT Alexandr Shafer MD LAB BLOOD ORDERABLES Final R esult MICHAEL [address] [place] [address] * (ABNORMAL) Basic metabolic panel (04/04/2025 2:06 PM CDT) Sodium 138 135 - 145 mmol/L Potassium, pl 4.5 3.3 - 4.9 mmol/L [facility] Chloride 104 97 - 110 mmol/L [facility] CO2 18(L) 22 - 32 mmol/L [facility] Anion gap 16(H) 2 - 15 mmol/L [facility] BUN 20 6 - 25 mg/dL [facility] Creatinine 0.83 0.80 - 1.30 mg/dL [facility] Glucose 159 70 - 199 mg/dL [facility] Comment: Interpretive Data Fasting glucose >/= 126 mg/dl is diagnostic for diabetes. Fasting is defined as no caloric intake for at least 8 hours. Fasting glucose between 100 mg/dl to 125 mg/dl is diagnostic of prediabetes. In a patient with classic symptoms of hyperglycemia or hyperglycemic crisis, a random glucose >/= 200 mg/dl is diagnostic for diabetes. In the absence of unequivocal hyperglycemia, results should be confirmed by repeat testing. The classification and Diagnosis of Diabetes Diabetes Care 202; 46: S19-S40. Current interpretive data was last revised 2022. Calcium 7.7(L) 8.5 - 10.3 mg/dL [facility] Blood 04/04/2025 2:06 PM CDT 04/04/2025 2:35 PM CDT Alexandr Shafer MD LAB BLOOD ORDERABLES Final R esult MICHAEL DILL [address] [place] [place] [address] * POCT glucose (04/04/2025 1:49 PM CDT) Glucose, POC 144 70 - 199 mg/dL Blood 04/04/2025 1:49 PM CDT 04/04/2025 1:49 PM CDT us Alexandr Shafer MD LAB POCT ORDERABLES - DEVICE Final Result MICHAEL DILL [address] [address] [place] [address] * Critical Care (04/04/2025 1:32 PM CDT) Narrative Sergey Browne MD - 04/04/2025 1:32 PM CDT Sergey Browne MD 04/04/2025 8:28 PM Critical Care Performed by: Jamal Raya NP Authorized by: Jamal Raya NP CRITICAL CARE: Team: MIKAEL Shift: AM Level of Billing: Critical Care My time spent with this patient was 55 minutes: Critical Provider Statement: I have seen and examined the patient on this day of service. I have reviewed and confirmed the history, physical exam, laboratory and radiologic data as documented in the signed ICU note. I have reviewed and discussed my treatment plan with the ICU team and other medical/interventional sale consultant staff, making frequent assessments and decisions regarding this patient's complex medical care. Critical Care time was exclusive of time spent performing separately billed procedures, treating other patients, and teaching. This time was in addition to and separate from critical care provided by other practitioners in my group on this day of service. Critical Care was necessary to treat or prevent imminent or life-threatening deterioration of the following conditions: I spent time reviewing and interpreting data from bedside monitors, laboratory results, and imaging, I spent time discussing the management of this critically ill patient with consultants and the medical staff and I spent time documenting in the medical record us Jamal Raya NP IN CLINIC/BEDSIDE ORDERABLES Final Result * (ABNORMAL) POC Blood Gas and Chemistries, Arterial - (04/04/2025 1:05 PM CDT) pH, Art POC 7.37 7.35 - 7.45 pCO2, Art POC 36 35 - 45 mmHg [facility] pO2, Art POC 167(H) 83 - 108 mmHg [facility] Na, POC 135 135 - 145 mmol/L [facility] K POC 4.7 3.3 - 4.9 mmol/L [facility] Comment: Interpretive Data This method is not able to assess for hemolysis, which may falsely increase potassium concentrations. If further testing is needed to evaluate this result, consider in-laboratory plasma potassium. Current Interpretive Data was last revised on 2022. Ionized Ca, POC 4.31(L) 4.50 - 5.10 mg/dL [facility] Glucose, POC 148 70 - 199 mg/dL [facility] Lactate POC 2.0 0.7 - 2.0 mmol/L [facility] O2Hb, Art POC 97.6(H) 90.0 - 95.0 % [facility] SO2 (nury) arterial 100(H) 90 - 95 % [facility] Total CO2, Art POC 22 21 - 30 mmol/L [facility] BE, art, POC -4 mmol/L [facility] Hct, POC 38.0(L) 38.9 - 50.3 % [facility] Total Hb, POC 12.8(L) 13.0 - 17.5 g/dL [facility] Blood 04/04/2025 1:05 PM CDT 04/04/2025 1:05 PM CDT Alexandr Shafer MD LAB POCT ORDERABLES - DEVICE Final Result MICHAEL DILL [address] [address] [place] [address] * (ABNORMAL) POC Blood Gas and Chemistries, Arterial - (04/04/2025 12:20 PM CDT) pH, Art POC 7.39 7.35 - 7.45 pCO2, Art POC 40 35 - 45 mmHg [facility] pO2, Art POC 70(L) 83 - 108 mmHg [facility] Na, POC 133(L) 135 - 145 mmol/L [facility] K POC 5.7(H) 3.3 - 4.9 mmol/L [facility] Comment: Interpretive Data This method is not able to assess for hemolysis, which may falsely increase potassium concentrations. If further testing is needed to evaluate this result, consider in-laboratory plasma potassium. Current Interpretive Data was last revised on 2022. Ionized Ca, POC 3.92(L) 4.50 - 5.10 mg/dL [facility] Glucose, POC 172 70 - 199 mg/dL [facility] Lactate POC 2.4(H) 0.7 - 2.0 mmol/L [facility] O2Hb, Art POC 94.1 90.0 - 95.0 % [facility] SO2 (nury) arterial 96(H) 90 - 95 % [facility] Total CO2, Art POC 25 21 - 30 mmol/L [facility] BE, art, POC -1 mmol/L [facility] Hct, POC 33.0(L) 38.9 - 50.3 % [facility] Total Hb, POC 11.0(L) 13.0 - 17.5 g/dL [facility] Blood 04/04/2025 12:2 0 PM CDT 04/04/2025 12:20 PM CDT Alexandr Shafer MD LAB POCT ORDERABLES - DEVICE Final Result Performing Organization Address [facility] Co de Phone Number MICHAEL ANIYAH [address] [address] [place] [address] * POC Activated Clotting Time, High Range (04/04/2025 12:19 PM CDT) Pathologist [facility] ACT 129 87 - 138 sec Blood 04/04/2025 12:1 9 PM CDT 04/04/2025 12:19 PM CDT Alexandr Shafer MD LAB BLOOD ORDERABLES Final R esult Performing Organization Address [facility] Co de Phone Number MICHAEL DILL [address] [address] [place] [address] * (ABNORMAL) POC Blood Gas and Chemistries, Arterial - (04/04/2025 11:54 AM CDT) pH, Art POC 7.41 7.35 - 7.45 pCO2, Art POC 38 35 - 45 mmHg [facility] pO2, Art POC 238(H) 83 - 108 mmHg [facility] Na, POC 133(L) 135 - 145 mmol/L [facility] K POC 6.1(C) 3.3 - 4.9 mmol/L [facility] Comment: Interpretive Data This method is not able to assess for hemolysis, which may falsely increase potassium concentrations. If further testing is needed to evaluate this result, consider in-laboratory plasma potassium. Current Interpretive Data was last revised on 2022. Ionized Ca, POC 4.00(L) 4.50 - 5.10 mg/dL [facility] Glucose, POC 146 70 - 199 mg/dL [facility] Lactate POC 1.8 0.7 - 2.0 mmol/L [facility] O2Hb, Art POC 97.6(H) 90.0 - 95.0 % [facility] SO2 (nury) arterial 100(H) 90 - 95 % [facility] Total CO2, Art POC 25 21 - 30 mmol/L [facility] BE, art, POC 0 mmol/L [facility] Hct, POC 32.0(L) 38.9 - 50.3 % [facility] Total Hb, POC 10.8(L) 13.0 - 17.5 g/dL [facility] Blood 04/04/2025 11:5 4 AM CDT 04/04/2025 11:54 AM CDT Alexandr Shafer MD LAB POCT ORDERABLES - DEVICE Final Result MICHAEL [address] [address] [place] [address] * (ABNORMAL) POC Blood Gas and Chemistries, Arterial - (04/04/2025 11:42 AM CDT) pH, Art POC 7.39 7.35 - 7.45 pCO2, Art POC 35 35 - 45 mmHg [facility] pO2, Art POC 227(H) 83 - 108 mmHg [facility] Na, POC 131(L) 135 - 145 mmol/L [facility] K POC 6.0(C) 3.3 - 4.9 mmol/L [facility] Comment: Interpretive Data This method is not able to assess for hemolysis, which may falsely increase potassium concentrations. If further testing is needed to evaluate this result, consider in-laboratory plasma potassium. Current Interpretive Data was last revised on 2022. Ionized Ca, POC 4.16(L) 4.50 - 5.10 mg/dL [facility] Glucose, POC 145 70 - 199 mg/dL [facility] Lactate POC 1.4 0.7 - 2.0 mmol/L [facility] O2Hb, Art POC 97.6(H) 90.0 - 95.0 % [facility] SO2 (unry) arterial 100(H) 90 - 95 % [facility] Total CO2, Art POC 22 21 - 30 mmol/L [facility] BE, art, POC -3 mmol/L [facility] Hct, POC 34.0(L) 38.9 - 50.3 % [facility] Total Hb, POC 11.3(L) 13.0 - 17.5 g/dL [facility] Blood 04/04/2025 11:4 2 AM CDT 04/04/2025 11:42 AM CDT Alexandr Shafer MD LAB POCT ORDERABLES - DEVICE Final Result Performing Organization Address [facility] Co de Phone Number MICHAEL ANIYAH [address] [address] [place] [address] * (ABNORMAL) POC Activated Clotting Time, High Range (04/04/2025 11:39 AM CDT) ACT 599(H) 87 - 138 sec Blood 04/04/2025 11:3 9 AM CDT 04/04/2025 11:39 AM CDT Alexandr Shafer MD LAB BLOOD ORDERABLES Final R esult Performing Organization Address City/[facility] Co de Phone Number DELPHINELUIS DILL [address] [address] [place] [address] * (ABNORMAL) Platelet count (04/04/2025 11:37 AM CDT) Plt 138(L) 150 - 400 K/cumm Blood 04/04/2025 11:3 7 AM CDT 04/04/2025 11:50 AM CDT us Alexandr Shafer MD LAB BLOOD ORDERABLES Final R esult Performing Organization Address City/[facility]/ZIP Co de Phone Number MICHAEL DILL [address] [address] [place] [address] * Prepare RBC: 4 Units (04/04/2025 11:37 AM CDT) Product code [id number] [facility] Unit Number [id number] 8-O [facility] Product Blood Type OPOS [facility] Dispense Status RETURNED [facility] Product code [id number] [facility] Unit Number [id number] 5-5 [facility] Product Blood Type OPOS [facility] Dispense Status RETURNED [facility] Product code [id number] [facility] Unit Number [id number] 2-H [facility] Product Blood Type OPOS [facility] Dispense Status RETURNED [facility] Product code [id number] Unit Number [id number] 2-H [facility] Product Blood Type OPOS [facility] Dispense Status RETURNED [facility] Blood 04/04/2025 11:3 7 AM CDT 04/04/2025 11:42 AM CDT Narrative [facility] - 04/08/2025 5:16 AM CDT Specify Procedure:->CABG Are special requirements needed? (All products are leukoreduced and CMV- safe)- >No Date required:-20250404 LRRBC # of [id number] Reasons:-Hold for procedure (specify procedure)} us Alexandr Shafer MD BLOOD BANK PRODUCT ORDERABLE S Final Result Performing Organization Address City/[facility]/ZIP Co de Phone Number MICHAEL DILL [address] [address] [place] [address] * (ABNORMAL) POC Activated Clotting Time, High Range (04/04/2025 11:15 AM CDT) ACT 574(H) 87 - 138 sec Blood 04/04/2025 11:1 5 AM CDT 04/04/2025 11:15 AM CDT Alexandr Shafer MD LAB BLOOD [place]AB[place] [address] [address] [place] [address] * (ABNORMAL) POC Blood Gas and Chemistries, Arterial - (04/04/2025 11:00 AM CDT) pH, Art POC 7.37 7.35 - 7.45 pCO2, Art POC 41 35 - 45 mmHg [facility] pO2, Art POC 233(H) 83 - 108 mmHg [facility] Na, POC 132(L) 135 - 145 mmol/L [facility] K POC 5.3(H) 3.3 - 4.9 mmol/L [facility] Comment: Interpretive Data This method is not able to assess for hemolysis, which may falsely increase potassium concentrations. If further testing is needed to evaluate this result, consider in-laboratory plasma potassium. Current Interpretive Data was last revised on 2022. Ionized Ca, POC 4.10(L) 4.50 - 5.10 mg/dL [facility] Glucose, POC 108 70 - 199 mg/dL [facility] Lactate POC 1.1 0.7 - 2.0 mmol/L [facility] O2Hb, Art POC 97.4(H) 90.0 - 95.0 % [facility] SO2 (nury) arterial 99(H) 90 - 95 % [facility] Total CO2, Art POC 25 21 - 30 mmol/L [facility] BE, art, POC -2 mmol/L [facility] Hct, POC 33.0(L) 38.9 - 50.3 % [facility] Total Hb, POC 11.0(L) 13.0 - 17.5 g/dL [facility] Blood 04/04/2025 11:0 0 AM CDT 04/04/2025 11:00 AM CDT Alexandr Shafer MD LAB POCT ORDERABLES - DEVICE Final Result Performing Organization Address City/[facility]/ZIP Co de Phone Number MICHAEL DILL [address] [address] [place] [address] * (ABNORMAL) POC Blood Gas and Chemistries, Arterial - (04/04/2025 10:31 AM CDT) pH, Art POC 7.35 7.35 - 7.45 pCO2, Art POC 44 35 - 45 mmHg [facility] pO2, Art POC 304(H) 83 - 108 mmHg [facility] Na, POC 133(L) 135 - 145 mmol/L [facility] K POC 5.3(H) 3.3 - 4.9 mmol/L [facility] Comment: Interpretive Data This method is not able to assess for hemolysis, which may falsely increase potassium concentrations. If further testing is needed to evaluate this result, consider in-laboratory plasma potassium. Current Interpretive Data was last revised on 2022. Ionized Ca, POC 4.13(L) 4.50 - 5.10 mg/dL CERNER [facility] Glucose, POC 93 70 - 199 mg/dL [facility]ERN[facility] Lactate POC 0.9 0.7 - 2.0 mmol/L CERN[facility] O2Hb, Art POC 97.5(H) 90.0 - 95.0 % CERNER CH SO2 (nury) arterial 100(H) 90 - 95 % CERNER [facility] Total CO2, Art POC 26 21 - 30 mmol/L CERN[facility] BE, art, POC -1 mmol/L CERN[facility] Hct, POC 32.0(L) 38.9 - 50.3 % CERNER CH Total Hb, POC 10.8(L) 13.0 - 17.5 g/dL CERNER [facility] Blood 04/04/2025 10:3 1 AM CDT 04/04/2025 10:31 AM CDT Alexandr Shafer MD LAB POCT ORDERABLES - DEVICE Final Result MICHAEL DILL [id number] Department [place] [address] * (ABNORMAL) POC Activated Clotting Time, High Range (04/04/2025 10:30 AM CDT) ACT 612(H) 87 - 138 sec Blood 04/04/2025 10:3 0 AM CDT 04/04/2025 10:30 AM CDT us Alexandr Shafer MD LAB BLOOD ORDERABLES Final R esult Performing Organization Address City/State/[facility] Co ca Phone Number MICHAEL [id number] [facility] Department [place] [address] * CRISTA (04/04/2025 10:21 AM CDT) Anatomical Region Laterality Modality Other Narrative 04/04/2025 10:21 AM CDT Yuri Zapata MD 04/04/2025 10:21 AM CRISTA Date/time: 04/04/2025 10:21 AM Preprocedure checklist: patient identified, procedure consent, risks, benefits and alternatives discussed and CRISTA probe inserted into esophagus using lubricating jelly General procedure Information: Reason for procedure/indications: assessment of surgical repair and hemodynamic monitoring Performed: personally Procedure performed at surgeon's request: yes Results discussed with surgeon: yes Images submitted to archive: yes Patient location: OR Intubated: yes Bite blocked placed: yes Probe Insertion: easy Complications: no Probe type: adult Modalities: 2D imaging, 3D imaging, continuous wave Doppler, pulsed wave Doppler and color Doppler Echocardiographic and doppler measurements: Ventricles: Left ventricle: Cavity size: normal Hypertrophy: No Thrombus: No LVEF%: 50-60 Right ventricle: Cavity size: normal Hypertrophy: no Thrombus: No RVEF%: normal Interventricular septum: normal Regional function: 1- Basal anteroseptal: normal 2- Basal anterior: normal 3- Basal anterolateral: normal 4- Basal inferolateral: normal 5- Basal inferior: normal 6- Basal inferoseptal: normal 7- Mid anteroseptal: normal 8- Mid anterior: normal 9- Mid anterolateral: normal 10- Mid inferolateral: normal 11- Mid inferior: normal 12- Mid inferoseptal: normal 13- Apical anterior: normal 14- Apical lateral: normal 15- Apical inferior: normal 16- Apical septal: normal 17- [place]: normal Valves: Aortic Valve: Annulus: normal Mitral valve: Annulus: normal Leaflet morphology anterior: normal Leaflet morphology posterior: normal Leaflet motion anterior: normal Stenosis: none Regurgitation: mild Tricuspid valve: Annulus: normal Pulmonic valve: Annulus: normal Aorta: Ascending aorta: Size: normal Aortic arch: Size: normal Descending aorta: Size: normal Atria: Right atrium: Size: normal Left atrium: Size: normal (normal) Left atrial appendage: normal Interatrial septum: normal Diastolic function and other findings: Diastolic function: normal Pericardium: normal Left pleural effusion: none Right pleural effusion: normal Pulmonary venous flow: normal Postprocedure (follow-up) CRISTA exam: LV: unchanged RV: unchanged Interventricular septum: unchanged Aortic valve: unchanged Mitral valve: unchanged Pulmonic valve: unchanged Tricuspid valve: unchanged Atria: unchanged Aorta: unchanged Pericardium: unchanged Left pleural: unchanged Right pleural: unchanged Attestation Statement: By signing this report the attending anesthesiologist certifies that he or she has personally reviewed and interpreted the echocardiogram and has reviewed and or edited and agrees with the written comments contained within the report. us Yuri Zapata MD ANESTHESIA ORDERABLES Final Re sult * (ABNORMAL) POC Blood Gas and Chemistries, Arterial - (04/04/2025 10:00 AM CDT) pH, Art POC 7.34(L) 7.35 - 7.45 pCO2, Art POC 45 35 - 45 mmHg CERNER [facility] pO2, Art POC 108 83 - 108 mmHg CERNER [facility] Na, POC 135 135 - 145 mmol/L [facility]ERNER [facility] K POC 4.4 3.3 - 4.9 mmol/L CERNER CH Comment: Interpretive Data This method is not able to assess for hemolysis, which may falsely increase potassium concentrations. If further testing is needed to evaluate this result, consider in-laboratory plasma potassium. Current Interpretive Data was last revised on 2022. Ionized Ca, POC 4.45(L) 4.50 - 5.10 mg/dL CERNER CH Glucose, POC 93 70 - 199 mg/dL CERNER [facility] Lactate POC 0.8 0.7 - 2.0 mmol/L CERNER CH O2Hb, Art POC 96.3(H) 90.0 - 95.0 % CERNER CH SO2 (nury) arterial 99(H) 90 - 95 % [facility]ERNER CH Total CO2, Art POC 26 21 - 30 mmol/L [facility]ERNER [facility] BE, art, POC -2 mmol/L CERNER CH Hct, POC 42.0 38.9 - 50.3 % CERNER CH Total Hb, POC 14.1 13.0 - 17.5 g/dL CERNER CH Blood 04/04/2025 10:0 0 AM CDT 04/04/2025 10:00 AM CDT Alexandr Shafer MD LAB POCT ORDERABLES - DEVICE Final Result Performing Organization Address [facility] Co de Phone Number MICHAEL DILL [id number] [place] [address] * (ABNORMAL) POC Activated Clotting Time, High Range (04/04/2025 9:57 AM CDT) ACT 619(H) 87 - 138 sec Blood 04/04/2025 9:57 AM CDT 04/04/2025 9:57 AM CDT Alexandr Shafer MD LAB BLOOD ORDERABLES Final R esult Performing Organization Address [facility] de Phone Number MICHAEL IDLL [address] [place] [address] * (ABNORMAL) POC Blood Gas and Chemistries, Arterial - (04/04/2025 8:35 AM CDT) pH, Art POC 7.42 7.35 - 7.45 pCO2, Art POC 40 35 - 45 mmHg CERNER CH pO2, Art POC 345(H) 83 - 108 mmHg CERNER CH Na, POC 134(L) 135 - 145 mmol/L [facility]ERNER [facility] K POC 4.3 3.3 - 4.9 mmol/L CERNER CH Comment: Interpretive Data This method is not able to assess for hemolysis, which may falsely increase potassium concentrations. If further testing is needed to evaluate this result, consider in-laboratory plasma potassium. Current Interpretive Data was last revised on 2022. Ionized Ca, POC 4.54 4.50 - 5.10 mg/dL CERNER CH Glucose, POC 101 70 - 199 mg/dL CERNER CH Lactate POC 1.1 0.7 - 2.0 mmol/L [facility] O2Hb, Art POC 97.7(H) 90.0 - 95.0 % CERNER CH SO2 (nury) arterial 100(H) 90 - 95 % [facility]ERNER CH Total CO2, Art POC 27 21 - 30 mmol/L [facility] BE, art, POC 1 mmol/L [facility] CH Hct, POC 44.0 38.9 - 50.3 % CERNER CH Total Hb, POC 14.7 13.0 - 17.5 g/dL CERNER CH Blood 04/04/2025 8:35 AM CDT 04/04/2025 8:35 AM CDT Alexandr Shafer MD LAB POCT ORDERABLES - DEVICE Final Result Performing Organization Address [facility] de Phone Number MICHAEL DILL [address] [address] [place] [address] * POC Activated Clotting Time, High Range (04/04/2025 8:32 AM CDT) ACT 126 87 - 138 sec Blood 04/04/2025 8:32 AM CDT 04/04/2025 8:32 AM CDT Alexandr Shafer MD LAB BLOOD ORDERABLES Final R esult Performing Organization Address [facility] de Phone Number MICHAEL DILL [address] [address] [place] [address] * PULMONARY ARTERY CATH, MD AN CENTRAL LINE MULTI LUMEN (04/04/2025 8:26 AM CDT) Narrative Orestes Uriarte AA - 04/04/2025 8:26 AM CDT Orestes Uriarte AA 04/04/2025 8:42 AM Central Venous Line Patient location: OR Indication: central venous access and CVP monitoring Staff: Supervising provider: Yuri Zapata MD Placed by: AA: Orestes Uriarte AA Procedure prep: Patient position: Trendelenburg. PPE: provider hat/mask, sterile gloves, sterile gown, provider hand hygiene and full body drape. Prep solution: chlorhexadine/alcohol was applied to area. Ultrasound Evaluation: Ultrasound was used prior to prep and prepped into field. Ultrasound image(s) saved to archive. Prior to the procedure, the cannulated vein was evaluated by ultrasound and deemed suitably patent for access.This vessel was accessed using real-time ultrasound guidance and an image was placed in the patient's medical record Central line: Laterality: right Site: internal jugular Catheter type: multi-lumen access catheter (MAC) Oximetric catheter: yes Catheter size: 9 Fr. Catheter length: 11.5 cm Additional catheter placed through introducer: double lumen infusion catheter (DLIC) Catheter length at skin: 12 cm Technique: anatomy identified with ultrasound, vein located with finder needle, Seldinger technique, wire threaded easily and wire removed intact Venous verification: pressure transduced Post insertion: all ports aspirated, all ports flushed easily, line sutured in place and occlusive dressing applied Chlorhexidine patch applied: yes Number of attempts: 1 PA catheter placement: PA catheter type: oximetric PA catheter size: 8 Fr PA catheter laterality: right PA catheter site: internal jugular Placement guided by: pressure tracing changes and verified by CRISTA PA catheter depth 52 cmNo Assessment: Events: patient tolerated procedure well with no complications us Yuri Zapata MD ANESTHESIA ORDERABLES Edited R esult - Final * Arterial Line (04/04/2025 8:23 AM CDT) Narrative Orestes Uriarte AA - 04/04/2025 8:23 AM CDT Orestes Uriarte AA 04/04/2025 8:42 AM Arterial Line Patient location: pre-op holding Indication: continuous blood pressure monitoring and blood sampling needed Ultrasound assisted: yes Staff: Supervising provider: Yuri Zapata MD Placed by: AA: Orestes Uriarte AA Procedure prep: Prep solution: chlorhexadine/alcohol Prep: provider hat/mask and sterile gloves Skin infiltrated with lidocaine 1%: yes Arterial line: Catheter size: 20 gauge Catheter length: 1 and 3/4 inch Catheter type: wire-guided catheter Seldinger technique: yes Laterality: left Site: brachial artery Line secured: Tegaderm, tape and suture Results: good waveform and good blood return Number of attempts: 1 Assessment: Events: patient tolerated procedure well with no complications Yuri Zapata MD ANESTHESIA ORDERABLES Edited R esult - Final * MD AN ELECTIVE ENDOTRACHEAL AIRWAY (04/04/2025 8:22 AM CDT) Narrative Orestes Uriarte AA - 04/04/2025 8:22 AM CDT Orestes Uriarte AA 04/04/2025 8:23 AM Airway Patient location: OR Urgency: elective Date/time: 04/04/2025 8:18 AM Indications for airway management: anesthesia Difficult airway: no Staff: Supervising provider: Yuri Zapata MD Placed by: AA: Joselito Lewis AA Emergent airway documentation: Risks and benefits discussed: yes Consent obtained: yes Consent given by: patient Airway prep: Preoxygenated: yes Patient position: sniffing Mask difficulty assessment: 2 - vent by mask + OA or adjuvant Spontaneous ventilation during airway: absent Sedation level during airway: GA Final airway details: Final airway type: endotracheal airway Tube type: ETT ETT size: 8.0 mm Cuffed: yes Technique used for successful ETT placement: video laryngoscopy Devices/Methods used in placement: stylet and cricoid pressure Insertion site: oral Blade type: Yee Video blade type: Mazariegos Blade size: 4 Cormack-Lehane (video): grade I - full view of glottis Cuff volume: 7 mL Cuff inflated with: air ETT to lips: 23 cm Placement verified by: auscultation and CO2 detection Airway secured with: silk tape Number of attempts: 1 Yuri Zapata MD ANESTHESIA ORDERABLES Final Re sult * Type and screen (04/04/2025 7:35 AM CDT) ABO Rh O Positive Nasir, indirect Negative CERNER CH Blood 04/04/2025 7:35 AM CDT 04/04/2025 7:40 AM CDT Narrative CERNER CH - 04/04/2025 8:38 AM CDT Has the patient had Daratumumab or Isatuximab in the past 6 months?->Unknown Alexandr Shafer MD LAB BLOOD BANK TEST ORDERABL ES Final Result Performing Organization Address City/[facility]/ZIP Co de Phone Number [address] Department [place] [address] * CRISTA Add-On For OR (04/04/2025 6:55 AM CDT) BSA 2.66 m2 CONS SCIMAGE Narrative CONS SCIMAGE - 04/04/2025 6:55 AM CDT Procedure Auto Finalized by Rule: BW CV CRISTA DURING CASE OR Please see the Anesthesiologist's Procedure Note for the results. us Yuri Zapata MD CV ECHO PROCEDURES Final Resul t Performing Organization Address [facility] Co de Phone Number CONS SCIMAGE * TRANSTHORACIC ECHO (TTE) COMPLETE W DOPPLER/CF W CONTRAST (03/21/2025 2:18 PM CDT) EF Mod BP 56 % CONS SCIMAGE Anatomical Region Laterality Modality Ultrasound 03/21/2025 1:09 PM CDT Narrative 03/21/2025 5:07 [place] [address] Echocardiogram Report Patient Name: GURMEET BARNARD G : 1955 Study Date: 03/21/2025 1:09:02 PM Sex: M Tech: BARBY Location: OP Ref Provider: ALEXANDR SHAFER Height(Cm): 188 BSA: 2.67 Weight(Kg): 136.1 Heart Rate: 60 BP: 129/80 Quality: Good Order Provider: ALEXANDR SHAFER PROCEDURES: Echocardiographic Report: Transthoracic echocardiogram with complete 2D, M-Mode, color Doppler examination and contrast. 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 MEASUREMENTS: 2D/MM Value Range Doppler Value Range EF Teich 2D 50.0 percent [ 52.0 - 72.0 ] STEPHANIE Vmax 2.04 cm2 EF Mod BP 56 % [ 52 - 72 ] AV Mean PG 5 mmHg LVIDd 2D 4.35 cm [ 4.20 - 5.80 ] AV Peak Chevy 1.13 m/s [ 1.00 - 1.70 ] LVIDs 2D 3.25 cm [ 2.50 - 4.00 ] AV VTI 23.59 cm LVPWd 2D 1.30 cm [ 0.60 - 1.00 ] LVOT Diam 2.03 cm IVSd 2D 1.36 cm [ 0.60 - 1.00 ] LVOT Peak Chevy 0.71 m/s [ 0.70 - 1.10 ] LA Dimension 2D 3.74 cm [ 3.00 - 4.00 ] LVOT VTI 16.13 cm LA Dimension MM 4.93 cm [ 3.00 - 4.00 ] SI LVOT 20.3 ml/m2 [ >= 35.0 ] AoR Diam MM 2.81 cm [ 3.10 - 3.70 ] MV E Peak Chevy 0.57 m/s [ 0.60 - 1.30 ] ACS MM 1.73 cm [ 1.50 - 2.60 ] MV A Peak Chevy 0.76 m/s [ 1.00 - 1.20 ] MV Mean PG 1 mmHg MV PHT 64 msec [ 20 - 100 ] MVA PHT 3.40 cm2 MV Decel Time 225 msec [ 104 - 258 ] PV Peak Chevy 0.63 m/s [ 0.40 - 0.80 ] E` 0.04 m/s E/E` 12.86 2D/MM Value Range Doppler Value Range - FINDINGS: Atrial Septum: The atrial septum is not well visualized. Left Ventricle: Normal left ventricular size. Normal left ventricular systolic function with no focal wall motion abnormalities. Normal left ventricular wall thickness. Impaired diastolic relaxation Grade I. Ejection fraction is measured at 56 %. Left Atrium: The left atrium is normal in size. Right Ventricle: Normal right ventricular size. Normal right ventricular systolic function. Right Atrium: The right atrium is normal in size. Aortic Valve: Normal structure of the aortic valve. Mitral Valve: Normal structure of the mitral valve. Pulmonic Valve: Pulmonic valve not well visualized. Tricuspid Valve: Normal structure of the tricuspid valve. Right Ventricular Systolic Pressure could not be estimated due to inadequate visualization of TR jet. Pericardium: Normal pericardium with no significant pericardial effusion. Aorta: Normal aortic root. IVC: Normal size and normal respiratory collapse consistent with normal right atrial pressure (<5 mmHg). CONCLUSIONS: Normal left ventricular size. Normal left ventricular systolic function with no focal wall motion abnormalities. Normal left ventricular wall thickness. Impaired diastolic relaxation Grade I. Ejection fraction is measured at 56 %. Normal right ventricular size. Normal right ventricular systolic function. Normal structure of the mitral valve. Normal structure of the aortic valve. Normal structure of the tricuspid valve. Right Ventricular Systolic Pressure could not be estimated due to inadequate visualization of TR jet. Electronically Signed By: Oscar Islas MD [facility] 03/21/2025 5:06:03 PM CDT Procedure Note Oscar Islas MD - 03/21/2025 [place] [address] Echocardiogram Report Patient Name: GURMEET BARNARD G : 1955 Study Date: 03/21/2025 1:09:02 PM Sex: M Tech: BARBY Location: OP Ref Provider: ALEXANDR SHAFER Height(Cm): 188 BSA: 2.67 Weight(Kg): 136.1 Heart Rate: 60 BP: 129/80 Quality: Good Order Provider: ALEXANDR SHAFER PROCEDURES: Echocardiographic Report: Transthoracic echocardiogram with complete 2D, M-Mode, color Dopplerexamination and contrast. 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 MEASUREMENTS: 2D/MM Value Range DopplerValue Range EF Teich 2D 50.0 percent [ 52.0 - 72.0 ] STEPHANIE Vmax2.04 cm2 EF Mod BP 56 % [ 52 - 72 ] AV Mean PG 5mmHg LVIDd 2D 4.35 cm [ 4.20 - 5.80 ] AV Peak Vel1.13 m/s [ 1.00 - 1.70 ] LVIDs 2D 3.25 cm [ 2.50 - 4.00 ] AV VTI23.59 cm LVPWd 2D 1.30 cm [ 0.60 - 1.00 ] LVOT Diam2.03 cm IVSd 2D 1.36 cm [ 0.60 - 1.00 ] LVOT Peak Vel0.71 m/s [ 0.70 - 1.10 ] LA Dimension 2D 3.74 cm [ 3.00 - 4.00 ] LVOT VTI16.13 cm LA Dimension MM 4.93 cm [ 3.00 - 4.00 ] SI LVOT20.3 ml/m2 [ >= 35.0 ] AoR Diam MM 2.81 cm [ 3.10 - 3.70 ] MV E Peak Vel0.57 m/s [ 0.60 - 1.30 ] ACS MM 1.73 cm [ 1.50 - 2.60 ] MV A Peak Vel0.76 m/s [ 1.00 - 1.20 ] MV Mean PG 1 mmHg MV PHT 64 msec [ 20 - 100 ] MVA PHT 3.40 cm2 MV Decel Time 225 msec [ 104 - 258 ] PV Peak Chevy 0.63 m/s [ 0.40 - 0.80 ] E` 0.04 m/s E/E` 12.86 2D/MM Value Range DopplerValue Range - FINDINGS: Atrial Septum: The atrial septum is not well visualized. Left Ventricle: Normal left ventricular size. Normal left ventricular systolic functionwith no focal wall motion abnormalities. Normal left ventricular wall thickness.Impaired diastolic relaxation Grade I. Ejection fraction is measured at 56 %. Left Atrium: The left atrium is normal in size. Right Ventricle: Normal right ventricular size. Normal right ventricular systolicfunction. Right Atrium: The right atrium is normal in size. Aortic Valve: Normal structure of the aortic valve. Mitral Valve: Normal structure of the mitral valve. Pulmonic Valve: Pulmonic valve not well visualized. Tricuspid Valve: Normal structure of the tricuspid valve. Right Ventricular SystolicPressure could not be estimated due to inadequate visualization of TR jet. Pericardium: Normal pericardium with no significant pericardial effusion. Aorta: Normal aortic root. IVC: Normal size and normal respiratory collapse consistent with normal rightatrial pressure (<5 mmHg). CONCLUSIONS: Normal left ventricular size. Normal left ventricular systolic functionwith no focal wall motion abnormalities. Normal left ventricular wall thickness.Impaired diastolic relaxation Grade I. Ejection fraction is measured at 56 %. Normal right ventricular size. Normal right ventricular systolicfunction. Normal structure of the mitral valve. Normal structure of the aortic valve. Normal structure of the tricuspid valve. Right Ventricular SystolicPressure could not be estimated due to inadequate visualization of TR jet. Electronically Signed By: Oscar Islas MD [facility] 03/21/2025 5:06:03 PM CDT us Alexandr Shafer MD CV ECHO PROCEDURES Final Res ult * US Vein Mapping Duplex Lower Extremity Right (03/21/2025 1:05 PM CDT) Anatomical Region Laterality Modality Vascular Right Ultrasound 03/21/2025 3:52 PM CDT Impressions 03/21/2025 3:52 PM CDT The right greater saphenous vein is patent in entirety with measurements as described above. Electronically signed by: Doris Monique M.D. [facility] 03/21/2025 3:52 PM CDT EXAMINATION: US VEIN MAPPING DUPLEX LOWER EXTREMITY RIGHT HISTORY: The patient is a 69-year-old male who presents with right lower extremity varicose veins. He is referred for preoperative venous mapping of the right greater saphenous vein. TECHNIQUE: Diameter measurements of the right greater saphenous vein were obtained with grayscale imaging. FINDINGS: The diameter of the right greater saphenous vein at its origin is 1.0 cm. The diameter of the right greater saphenous vein in the proximal portion of the thigh is 0.9 cm, in the midportion is 0.5 cm and distal portion is 0.5 cm. The diameter of the right greater saphenous vein at the level of the knee is 0.4 cm. The diameter of the right greater saphenous vein in the proximal calf is 0.4 cm, the mid calf is 0.2 cm and distal calf is 0.3 cm. Procedure Note Doris Monique MD - 03/21/2025 EXAMINATION: US VEIN MAPPING DUPLEX LOWER EXTREMITY RIGHT HISTORY: The patient is a 69-year-old male who presents with right lower extremity varicose veins. He is referred for preoperative venous mapping of the right greater saphenous vein. TECHNIQUE: Diameter measurements of the right greater saphenous vein were obtained with grayscale imaging. FINDINGS: The diameter of the right greater saphenous vein at its origin is 1.0 cm. The diameter of the right greater saphenous vein in the proximal portion of the thigh is 0.9 cm, in the midportion is 0.5 cm and distal portion is 0.5 cm. The diameter of the right greater saphenous vein at the level of the knee is 0.4 cm. The diameter of the right greater saphenous vein in the proximal calf is 0.4 cm, the mid calf is 0.2 cm and distal calf is 0.3 cm. IMPRESSION: The right greater saphenous vein is patent in entirety with measurements as described above. Electronically signed by: Doris Monique M.D. us Alexandr Shafer MD IM US PROCEDURES Final Resu lt * CT chest without contrast (03/21/2025 12:44 PM CDT) Anatomical Region Laterality Modality Body N/A Computed Tomogra phy 03/22/2025 7:24 AM CDT Impressions 03/22/2025 7:24 AM CDT Atherosclerotic aorta and moderate multivessel coronary artery calcification. No acute thoracic pathology. 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 Follow-up with ultrasound. Cholelithiasis. Electronically signed by: Xiomara Ackerman M.D. Narrative 03/22/2025 7:24 AM CDT Examination: CT CHEST WO CONTRAST Date: 03/21/2025 12:45 PM Clinical History: aortic calcification Technique: Computed tomographic images of the chest were obtained in the axial plane without the administration of contrast. 2-D Coronal and sagittal reformatted images were performed. Comparison: None. Findings: Normal heart size noted.There is no pericardial effusion moderate multivessel coronary artery calcification is seen. .There is no mediastinal lymphadenopathy. Nonaneurysmal aorta is seen with mild/moderate calcified plaque especially at the distal arch and mild and descending aorta. There is minimal calcified plaque at the sinotubular junction. . Heterogeneous enlarged left thyroid lobe with substernal extension and partly calcified 4 cm nodule with additional 1.8 cm nodule is seen. There is mild rightward tracheal displacement and esophageal compression.. No consolidation or effusion noted..Calcified granulomas noted in the right upper middle and both lower lobes. The bony thorax is unremarkable.. Calcified gallstones noted in a nondistended gallbladder.. Procedure Note Xiomara Ackerman MD - 03/22/2025 Examination: CT CHEST WO CONTRAST Date: 03/21/2025 12:45 PM Clinical History: aortic calcification Technique: Computed tomographic images of the chest were obtained in the axial plane without the administration of contrast. 2-D Coronal and sagittal reformatted images were performed. Comparison: None. Findings: Normal heart size noted.There is no pericardial effusion moderate multivessel coronary artery calcification is seen. .There is no mediastinal lymphadenopathy. Nonaneurysmal aorta is seen with mild/moderate calcified plaque especially at the distal arch and mild and descending aorta. There is minimal calcified plaque at the sinotubular junction. . Heterogeneous enlarged left thyroid lobe with substernal extension and partly calcified 4 cm nodule with additional 1.8 cm nodule is seen. There is mild rightward tracheal displacement and esophageal compression.. No consolidation or effusion noted..Calcified granulomas noted in the right upper middle and both lower lobes. The bony thorax is unremarkable.. Calcified gallstones noted in a nondistended gallbladder.. IMPRESSION: Atherosclerotic aorta and moderate multivessel coronary artery calcification. No acute thoracic pathology. 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 Follow-up with ultrasound. Cholelithiasis. Electronically signed by: Xiomara Ackerman M.D. us Alexandr Shafer MD IMG CT PROCEDURES Final Resu lt * eGFR (03/21/2025 12:04 PM CDT) eGFR 83 >=60 mL/min/1. 73 m2 Comment: Interpretive Data Reference Interval Normal >/= 90 mL/min/1.73m2 Mildly decreased* 60 - 89 mL/min/1.73m2 Mildly to moderately decreased 45 - 59 mL/min/1.73m2 Moderately to severely decreased 30 - 44 mL/min/1.73m2 Severely decreased 15 - 29 mL/min/1.73m2 Kidney Failure < 15 mL/min/1.73m2 *Relative to young adult level Estimated glomerular filtration rate is determined by the 2020 CKD-EPI equation recommended by the National Kidney Foundation (A Unifying Approach to GFR Estimation: Recommendations of the NKF-ASK Task Force on Reassessing the Inclusion of Race in Diagnosing Kidney Disease, JASN 2020). The CKD-EPI equation should not be used for patients with unstable renal function and has not been validated in children and those over 70. Current interpretive data was last reviewed 2021. Blood 03/21/2025 12:0 4 PM CDT 03/21/2025 12:44 PM CDT us Alexandr Shafer MD LAB BLOOD ORDERABLES Final R esult MICHAEL [id number] Department [place] [address] * (ABNORMAL) Differential, auto (03/21/2025 12:04 PM CDT) Neutrophil abs 4.94 1.50 - 6.50 K/cumm Imm gran abs 0.05 0.00 - 0.10 K/cumm [facility] Lymphocyte abs 2.77 0.80 - 3.30 K/cumm [facility] Monocyte abs 0.88(H) 0.20 - 0.80 K/cumm [facility] Eosinophil abs 0.32 0.00 - 0.50 K/cumm [facility] Basophil abs 0.06 0.00 - 0.10 K/cumm [facility] Neutrophil pct 54.7 % [facility] Comment: Interpretive Data Percent cell count reference ranges are not reported, since discordance with absolute values may lead to misinterpretation of CBC data. Current Interpretive Data was last revised on 2017. Imm gran pct 0.6 % [facility] Comment: Interpretive Data Percent cell count reference ranges are not reported, since discordance with absolute values may lead to misinterpretation of CBC data. Current Interpretive Data was last revised on 2017. Lymphocyte pct 30.7 % [facility] Comment: Interpretive Data Percent cell count reference ranges are not reported, since discordance with absolute values may lead to misinterpretation of CBC data. Current Interpretive Data was last revised on 2017. Monocyte pct 9.8 % [facility] Comment: Interpretive Data Percent cell count reference ranges are not reported, since discordance with absolute values may lead to misinterpretation of CBC data. Current Interpretive Data was last revised on 2017. Eosinophil pct 3.5 % [facility] Comment: Interpretive Data Percent cell count reference ranges are not reported, since discordance with absolute values may lead to misinterpretation of CBC data. Current Interpretive Data was last revised on 2017. Basophil pct 0.7 % [facility] Comment: Interpretive Data Percent cell count reference ranges are not reported, since discordance with absolute values may lead to misinterpretation of CBC data. Current Interpretive Data was last revised on 2017. Blood 03/21/2025 12:0 4 PM CDT 03/21/2025 12:43 PM CDT us Alexandr Shafer MD LAB BLOOD ORDERABLES Final R esult MICHAEL [id number] [address] Department [place] [address] * Urinalysis reflex to microscopic and culture Urine, clean voided (03/21/2025 12:04 PM CDT) Color, ur Yellow Yellow Clarity, ur Clear Clear [facility] Specific gravity, ur 1.014 1.003 - 1.030 [facility] pH, urine 5.5 [facility] Comment: Interpretive Data U rine pH is affected by diet, medications, systemic acid-base disturbances, and renal tubular function. pH may affect urinary stone formation. For example, urine pH below 6.0 may help reduce the tendency for calcium phosphate stones and pH greater than 6.0 may reduce the tendency for uric acid stone formation. Source: [facility] Current Interpretive Data was last revised on 2017 Protein, ur ql Negative Negative [facility] Glucose, ur ql Negative Negative [facility] Ketones, ur Negative Negative [facility] Bilirubin, ur Negative Negative [facility] Blood, ur Negative Negative [facility] Urobilinogen, ur <2.0 <2.0 mg/dL [facility] Nitrite, ur Negative Negative [facility] Leukocyte esterase, ur Negative Negative [facility] UA reflex comment Reflex conditions for microscopic UA and culture not met. [facility] Urine, clean voided 03/21/2025 12:04 PM CDT 03/21/2025 12:42 PM CDT us Alexandr Shafer MD LAB MICROBIOLOGY - GENERAL O RDERABLES Final Result [facility] [id number] [address] Department [place] [address] * CBC with auto differential (03/21/2025 12:04 PM CDT) WBC 9.02 3.80 - 9.90 K/cumm Hgb 15.6 13.0 - 17.5 g/dL [facility] Hct 46.8 38.9 - 50.3 % [facility] Plt 236 150 - 400 K/cumm [facility] MPV 9.5 9.1 - 12.3 fL [facility] RBC 4.89 4.30 - 5.80 M/cumm [facility] MCV 95.7 81.3 - 96.4 fL [facility] MCH 31.9 27.1 - 33.3 pg [facility] MCHC 33.3 32.3 - 35.7 g/dL [facility] RDW CV 12.8 11.1 - 14.9 % [facility] RDW SD 45.4 35.7 - 48.1 fL [facility] NRBC abs 0.00 0.00 - 0.01 K/cumm [facility] Blood 03/21/2025 12:0 4 PM CDT 03/21/2025 12:43 PM CDT us Alexandr Shafer MD LAB BLOOD ORDERABLES Final R esult Performing Organization Address [facility] Co de Phone Number MICHAEL DILL [address] [address] [facility] [place] [address] * aPTT (03/21/2025 12:04 PM CDT) aPTT 35 26 - 38 sec Comment: Interpretive Data Heparin therapeutic range: 66.0 - 100.0 seconds. Range based on correlation with therapeutic heparin activity range of 0.3 - 0.7 Units/mL. Current interpretive data was last revised on 2023. Blood 03/21/2025 12:0 4 PM CDT 03/21/2025 12:43 PM CDT Alexandr Shafer MD LAB BLOOD ORDERABLES Final R [facility] Performing Organization Address [facility] Co de Phone Number MICHAEL [address] [facility] [place] [address] * Protime-INR (03/21/2025 12:04 PM CDT) PT 12.4 10.2 - 13.5 sec INR 1.10 0.90 - 1.20 [facility] Comment: Interpretive data Oral anticoagulant therapeutic ranges: Venous thromboembolism prophylaxis or treatment: 2.0-3.0 CARDIOLOGY Standard range: 2.0-3.0 High-intensity range: 2.5-3.5 Refer to indication-specific guidelines for appropriate target ranges for prosthetic heart valve replacement. Current interpretive data was last revised on 2019. Blood 03/21/2025 12:0 4 PM CDT 03/21/2025 12:43 PM CDT Alexandr Shafer MD LAB BLOOD ORDERABLES Final R esult Performing Organization Address City/[facility]/ZIP Co de Phone Number MICHAEL DILL [address] [facility] [place] [address] * Type and screen (03/21/2025 12:04 PM CDT) Nasir, indirect Negative ABO Rh O Positive [facility] Blood 03/21/2025 12:0 4 PM CDT 03/21/2025 1:15 PM CDT Narrative [facility] - 03/21/2025 2:02 PM CDT Has the patient had Daratumumab or Isatuximab in the past 6 months?->Unknown Alexandr Shafer MD LAB BLOOD BANK TEST ORDERABL ES Final Result Performing Organization Address [facility] Co de Phone Number MICHAEL DILL [address] [address] [place] [address] * Basic metabolic panel (03/21/2025 12:04 PM CDT) Pathologist [facility] Sodium 138 135 - 145 mmol/L Potassium, pl 4.4 3.3 - 4.9 mmol/L [facility] Chloride 101 97 - 110 mmol/L [facility] CO2 23 22 - 32 mmol/L [facility] Anion gap 14 2 - 15 mmol/L [facility] BUN 17 6 - 25 mg/dL [facility] Creatinine 0.97 0.80 - 1.30 mg/dL [facility] Glucose 97 70 - 199 mg/dL [facility] Comment: Interpretive Data Fasting glucose >/= 126 mg/dl is diagnostic for diabetes. Fasting is defined as no caloric intake for at least 8 hours. Fasting glucose between 100 mg/dl to 125 mg/dl is diagnostic of prediabetes. In a patient with classic symptoms of hyperglycemia or hyperglycemic crisis, a random glucose >/= 200 mg/dl is diagnostic for diabetes. In the absence of unequivocal hyperglycemia, results should be confirmed by repeat testing. The classification and Diagnosis of Diabetes Diabetes Care 2021; 46: S19-S40. Current interpretive data was last revised 2022. Calcium 9.3 8.5 - 10.3 mg/dL MICHAEL DILL Blood 03/21/2025 12:0 4 PM CDT 03/21/2025 12:43 PM CDT us Alexandr Shafer MD LAB BLOOD ORDERABLES Final R esult MICHAEL DILL [address] [address] Department of Laboratories [place] [id number] * LEFT HEART CATHETERIZATION WITH CORONARY ANGIOGRAPHY AND WITH AND WITHOUT LEFT VENTRICULOGRAM, CORONARY FLOW VELOCITY (CFR) / INSTATANEOUS FLOW VELOCITY (IFR), 1ST VESSEL, CORONARY FLOW VELOCITY (CFR) / INSTATANEOUS FLOW VELOCITY (IFR), EA ADDTN'L VESSEL (02/20/2025 12:58 PM CDT) Anatomical Region Laterality Modality X-Ray Angiograph y Narrative 02/20/2025 1:32 PM CDT Attending: Oscar Islas MD Indication: Refractory angina Procedure(s): 1. Left heart catheterization 2. Coronary angiography 3. IFR to LAD 4. IFR to LCX Consent obtained: YES Timeout: done; correct procedure, patient and site of access. Drug allergies noted. Sedation Moderate sedation was done using versed 2 mg & fentanyl 100 mcg. Sedation start time 12:27 & sedation end time 12:55. Sedation was administered under my supervision and RN in the room with continuous monitoring of patient's vital signs, airway and hemodynamic. Sedation was tolerated very well by the patient and at the end of the procedure patient was conscious. See procedure log for further details. Access: Site: Rt radial artery Technique: Modified Sildenger technique with fluoroscopy and US guidance Sheath size: 6 F Coronary angiography: Catheters were advanced over wire under fluoroscopy for selective coronary angiography. Wire was removed and catheter was flushed with saline. Coronary angiogram was recorded in different projections. Catheters removed and sheath flushed. Following catheter used for coronary angiograms TIG Hemodynamic findings: Arterial pressure: 130/70 mmHg LVEDP: 18 mmHg No gradient across AV Angiographic findings: 1. Left main: Bifurcates into LAD and LCX. Ostial left main 50% stenosis and distal left main 70% stenosis 2. LAD: Normal anatomic course, gives to diagonal branches. There was no angiographic significant disease. 3. LCX: Normal anatomic course, gives to OM branches. Ostial left circumflex 70% stenosis, mid left circumflex 80% stenosis and distal left circumflex 70% stenosis 4. RCA: Normal anatomic course, gives to PDA and PLV branches. DIRECTOR OF REIMBURSEMENT paroxysmal RCA Dominance: Right IFR details: Lesion # 1: LAD and LCX Anticoagulation with Angiomax Guide catheter: CLS 3.5 used to selectively engage the coronary artery under fluoroscopy and 2 orthogonal views of the coronary lesion were documented Guide wire: IFR wire advanced distal to lesion after equalization into LAD is in OM1 IFR measured as LAD 0.75, OM1 0.77 pullback revealed significant stenosis into the left main and ostial OM 1 Wire removed and repeat Angiography showed no dissection or distal embolization or perforation. Closure: artery closure with radial compression band Immediate post procedure access site: no hematoma, and distal pulse is unchanged Complications: None Estimated blood loss: minimal Specimen: none Conclusion: Multivessel coronary artery disease involving ostium in distal left main, OM1 and left circumflex with DIRECTOR OF REIMBURSEMENT of the RCA Recommendation Aspirin Statin Cardiac surgery consult for evaluation of bypass to LAD OM1 OM2 and distal RCA Oscar Islas MD CV CARDIAC CATH PROCEDURES Final Result * eGFR (02/10/2025 10:07 AM CDT) eGFR 81 >=60 mL/min/1. 73 m2 Comment: Interpretive Data Reference Interval Normal >/= 90 mL/min/1.73m2 Mildly decreased* 60 - 89 mL/min/1.73m2 Mildly to moderately decreased 45 - 59 mL/min/1.73m2 Moderately to severely decreased 30 - 44 mL/min/1.73m2 Severely decreased 15 - 29 mL/min/1.73m2 Kidney Failure < 15 mL/min/1.73m2 *Relative to young adult level Estimated glomerular filtration rate is determined by the 2020 CKD-EPI equation recommended by the National Kidney Foundation (A Unifying Approach to GFR Estimation: Recommendations of the NKF-ASK Task Force on Reassessing the Inclusion of Race in Diagnosing Kidney Disease, JASN 2020). The CKD-EPI equation should not be used for patients with unstable renal function and has not been validated in children and those over 70. Current interpretive data was last reviewed 2021. Blood 02/10/2025 10:0 7 AM CDT 02/10/2025 2:00 PM CDT Oscar Islas MD LAB BLOOD ORDERABLES Final Result MICHAEL [facility] 1 [facility] Department [place] [address] * (ABNORMAL) Differential, auto (02/10/2025 10:07 AM CDT) Neutrophil abs 4.66 1.50 - 6.50 K/cumm Imm gran abs 0.05 0.00 - 0.10 K/cumm [facility] ([place]) Lymphocyte abs 2.86 0.80 - 3.30 K/cumm [facility] ([place]) Monocyte abs 0.85(H) 0.20 - 0.80 K/cumm [facility] ([place]) Eosinophil abs 0.36 0.00 - 0.50 K/cumm [facility] ([place]) Basophil abs 0.06 0.00 - 0.10 K/cumm [facility] ([place]) Neutrophil pct 52.6 % [facility] ([place] Comment: Interpretive Data Percent cell count reference ranges are not reported, since discordance with absolute values may lead to misinterpretation of CBC data. Current Interpretive Data was last revised on 2017. Imm gran pct 0.6 % [facility] ([place]) Comment: Interpretive Data Percent cell count reference ranges are not reported, since discordance with absolute values may lead to misinterpretation of CBC data. Current Interpretive Data was last revised on 2017. Lymphocyte pct 32.4 % [facility] ([place]) Comment: Interpretive Data Percent cell count reference ranges are not reported, since discordance with absolute values may lead to misinterpretation of CBC data. Current Interpretive Data was last revised on 2017. Monocyte pct 9.6 % [facility] ([place]) Comment: Interpretive Data Percent cell count reference ranges are not reported, since discordance with absolute values may lead to misinterpretation of CBC data. Current Interpretive Data was last revised on 2017. Eosinophil pct 4.1 % [facility] ([place] Comment: Interpretive Data Percent cell count reference ranges are not reported, since discordance with absolute values may lead to misinterpretation of CBC data. Current Interpretive Data was last revised on 2017. Basophil pct 0.7 % [facility] ([place] Comment: Interpretive Data Percent cell count reference ranges are not reported, since discordance with absolute values may lead to misinterpretation of CBC data. Current Interpretive Data was last revised on 2017. Blood 02/10/2025 10:0 7 AM CDT 02/10/2025 2:00 PM CDT us Oscar Islas MD LAB BLOOD ORDERABLES Final Result [facility] ([place]) 1 [facility] Department [place] [address] * (ABNORMAL) CBC with auto differential (02/10/2025 10:07 AM CDT) WBC 8.84 3.80 - 9.90 K/cumm Hgb 14.9 13.0 - 17.5 g/dL [facility] ([place]) Hct 45.1 38.9 - 50.3 % [facility] ([place]) Plt 248 150 - 400 K/cumm [facility] ([place]) MPV 9.9 9.1 - 12.3 fL [facility] ([place]) RBC 4.59 4.30 - 5.80 M/cumm [facility] ([place]) MCV 98.3(H) 81.3 - 96.4 fL [facility] ([place]) MCH 32.5 27.1 - 33.3 pg [facility] ([place]) MCHC 33.0 32.3 - 35.7 g/dL [facility] ([place]) RDW CV 13.7 11.1 - 14.9 % [facility] ([place]) RDW SD 49.8(H) 35.7 - 48.1 fL [facility] ([place]) NRBC abs 0.00 0.00 - 0.01 K/cumm [facility] ([place]) Blood 02/10/2025 10:0 7 AM CDT 02/10/2025 2:00 PM CDT Oscar Islas MD LAB BLOOD ORDERABLES Final Result Performing Organization Address [facility] de Phone Number [facility] 1 [facility] [place] [address] * Protime-INR (02/10/2025 10:07 AM CDT) PT 12.1 10.2 - 13.5 sec [facility] ([place]) INR 1.07 0.90 - 1.20 [facility] ([place]) Comment: Interpretive data Oral anticoagulant therapeutic ranges: Venous thromboembolism prophylaxis or treatment: 2.0-3.0 CARDIOLOGY Standard range: 2.0-3.0 High-intensity range: 2.5-3.5 Refer to indication-specific guidelines for appropriate target ranges for prosthetic heart valve replacement. Current interpretive data was last revised on 2019. Blood 02/10/2025 10:0 7 AM CDT 02/10/2025 2:00 PM CDT Oscar Islas MD LAB BLOOD ORDERABLES Final Result Performing Organization Address City/[facility] de Phone Number [facility] 1 [facility] [place] [address] * Basic metabolic panel (02/10/2025 10:07 AM CDT) Sodium 135 135 - 145 mmol/L [facility] ([place]) Potassium, pl 4.6 3.3 - 4.9 mmol/L [facility] ([place]) Chloride 99 97 - 110 mmol/L [facility] ([place]) CO2 24 22 - 32 mmol/L [facility] [place]) Anion gap 12 2 - 15 mmol/L [facility] ([place]) BUN 22 6 - 25 mg/dL [facility] Creatinine 0.99 0.80 - 1.30 mg/dL [facility] Glucose 104 70 - 199 mg/dL [facility] Comment: Interpretive Data Fasting glucose >/= 126 mg/dl is diagnostic for diabetes. Fasting is defined as no caloric intake for at least 8 hours. Fasting glucose between 100 mg/dl to 125 mg/dl is diagnostic of prediabetes. In a patient with classic symptoms of hyperglycemia or hyperglycemic crisis, a random glucose >/= 200 mg/dl is diagnostic for diabetes. In the absence of unequivocal hyperglycemia, results should be confirmed by repeat testing. The classification and Diagnosis of Diabetes Diabetes Care 2021; 46: S19-S40. Current interpretive data was last revised 2022. Calcium 8.8 8.5 - 10.3 mg/dL [facility] Blood 02/10/2025 10:0 7 AM CDT 02/10/2025 2:00 PM CDT Oscar Islas MD LAB BLOOD ORDERABLES Final Result [facility] 1 [facility] Department of Laboratories [place], [place] [id number] * ECG 12 lead (02/07/2025 2:01 PM CDT) Oscar Islas MD ECG ORDERABLES Final Resul t * PSA screen (06/27/2024 7:52 AM [employer]) PSA-Total 1.26 <=6.20 ng/mL Comment: Interpretive Data AGE SEX REFERENCE INTERVAL 0 minutes-150 years Female None 0 minutes-49 years Male None 50-59 years Male 0-3.90 60-69 years Male 0-5.40 70-79 years Male 0-6.20 80-150 years Male 0-6.20 The Keyla PSA Total assay procedure was used. Results from different manufacturers or methods may not be comparable. Serial testing should be performed using the same method. Current interpretive data last revised 21. Blood 06/27/2024 7:52 AM [employer] 06/27/2024 10:53 AM [employer] us Jimmy Cheek MD LAB BLOOD ORDERABLES Fi nal Result [facility] [place]) 1 [facility] Department [place] [address] * COLONOSCOPY (02/22/2020 7:08 AM CDT) Anatomical Region Laterality Modality Other Narrative Procedure Note Jeni Burns MD - 02/22/2020 7:08 AM CDT [facility] Patient Name: Gurmeet Barnard Procedure Date: 02/22/2020 7:08 AM Date of : 1955 Admit Type: Outpatient Age: 64 Gender: Male Attending MD: Jeni Burns M.D. Room: [facility] ENDOSCOPY ROOM 1 Note Status: Finalized Patient Profile: This is a 64 year old male. History of colon polyps. His grandfather had colon cancer. No specific GI complaint. Procedure: Colonoscopy Indications: Screening for colon cancer: Family history of colorectal cancer in distant relative(s), High risk colon cancer surveillance: Personal history ofcolonic polyps, Last colonoscopy: January 2015 Referring MD: Jimmy Cheek M.D. Providers: Jnei Burns M.D. Impression: - One 4 mm polyp in the rectum, removed with a jumbo cold forceps. Resected and retrieved. - Internal hemorrhoids. Recommendation: - Await pathology results. - Repeat colonoscopy in 5 years for screeningpurposes. - Continue present medications. Medicines: Monitored Anesthesia Care Complications: No immediate complications. Estimated Blood Loss: Estimated blood loss: none. Procedure: Pre-Anesthesia Assessment: - Prior to the procedure, a History and Physical was performed, and patient medications and allergieswere reviewed. The patient's tolerance of previous anesthesia was also reviewed. The risks and benefitsof the procedure and the sedation options and riskswere discussed with the patient. All questions were answered, and informed consent was obtained. Prior Anticoagulants: The patient has taken no previous anticoagulant or antiplatelet agents. ASA Grade Assessment: II - A patient with mild systemicdisease. After reviewing the risks and benefits, the patientwas deemed in satisfactory condition to undergo the procedure. The benefits, risks and alternatives of theprocedure and sedation were discussed and informed consent was obtained. All questions were answered. Please referto the signed informed consent document in the medical record. Bowel prep was administered using a splitdose. The bowel preparation used was Miralax. The bowel preparation used was bisacodyl tablets. The scopewas passed under direct vision. The PediatricColonoscope [id number] was introduced through the anusand advanced to the the cecum, identified by appendiceal orifice and ileocecal valve. The quality of thebowel preparation was excellent. Findings: The perianal and digital rectal examinations were normal. The cecum appeared normal. The ascending colon appeared normal, ink marking from previous polypectomy noted. The transverse colon was normal. The descendingcolon was normal. Multiple small-mouthed diverticula were found in the sigmoid colon. A 4 mm polyp was found in the rectum. The polyp was semi-sessile and benign in appearance. The polyp was removed with a jumbo coldforceps. Resection and retrieval were complete. Internal hemorrhoids were found during retroflexion. The hemorrhoids were medium-sized. Electronically signed by Jeni Burns M.D. Jeni Burns M.D. 02/22/2020 8:50:52 AM Number of Addenda: 0 Note Initiated On: 02/22/2020 7:08 AM Procedure Code(s): --- Professional --- 63531, Colonoscopy, flexible; with biopsy, single or multiple Diagnosis Code(s): --- Professional --- Z12.11, Encounter for screening for malignant neoplasm of colon Z80.0, Family history of malignant neoplasm of digestive organs Z86.010, Personal history of colonic polyps K64.8, Other hemorrhoids K62.1, Rectal polyp K57.30, Diverticulosis of large intestine without perforation orabscess without bleeding CPT copyright 2017 [employer]. All rights reserved. The codes documented in this report are preliminary and upon supervisor laundry reviewmay be revised to meet current compliance requirements. Recognized by the [employer] for promoting quality in endoscopy us Jeni Burns MD ENDOSCOPY PROCEDURES Final Result * Hepatitis C Antibody Reflex Hepatitis C RNA Quantitative PCR (06/01/2017 7:08 AM [employer]) Hep C Ab Negative Negative MICHAEL Blood specimen (specimen) 06/01/2017 7:08 AM [employer] 06/01/2017 3:10 PM [employer] Narrative MICHAEL - 06/01/2017 4:03 PM [employer] us Jimmy Cheek MD LAB MICROBIOLOGY - GENE RAL ORDERABLES Final Result MICHAEL DILL [address] [address] Department [place] [address] from Last 3 Months or Most Recently Relevant to Health Maintenance Insurance [employer] MED[employer]ARE ADVANTAGE [employer] MEDICARE ADVANTAGE [facility] OPEN ACCESS [facility] HMO/PPO Address: [address] [place] [address] [facility] MED[facility] ADVANTAGE [facility] MED[facility] ADVANTAGE Advance Directives For more information, please contact: [phone] * Full Code (Latest Code Status on File) Date Activated Date Inactivated Comments 04/04/2025 2:01 PM 04/11/2025 8:05 PM * Full Code Date Activated Date Inactivated Comments 02/20/2025 1:51 PM 02/20/2025 7:38 PM * Full Code Date Activated Date Inactivated Comments 04/10/2020 11:58 PM 04/17/2020 3:11 PM * Full Code Date Activated Date Inactivated Comments 02/22/2020 7:10 AM 02/22/2020 1:30 PM Healthcare Agents on File Name Relationship Healthcare Agent Relationshi p Communication Christine Barnard Spouse Health Care Agent Care Teams Biodiesel Production Technician Relationship Specialty Start Date End Date Jimmy Cheek MD PCP - General 05/16/13 [place] [address] [address] Surgeon Cardiothoracic Surgery 04/11/25 Oscar Islas MD [address] [place] [address] [address] Consulting Physician Cardiology 04/11/25 Miscellaneous, Not In File 04/11/25
--- OUTSIDE RECORDS SUMMARY | 2025-04-17 15:40 | XMS_ITS | Encounter Summary ---
Author Organization [facility] Address [address] [place] [address] Phone Care Team Providers Care Hand Quilter Name Role Phone Jimmy Cheek MD Primary Care Provider Minerva Garcia RN Unavailable [phone] Alexandr Shafer MD Unavailable Oscar Islas MD Unavailable [phone] Miscellaneous, Not In File Unavailable Unava ilable Encounter Details Date Type Department Care Team (Late st Contact Info) Description 06/01/2017 Orders Only [facility] ProviderRegan MD [address] [place] [address] Social History Tobacco Use Types Packs/Day Years Used Date Smoking Tobacco: Never Smokeless Tobacco: Never Alcohol Use Standard Drinks/Week Comments Yes 0 (1 standard drink = 0.6 oz pur e alcohol) Sex and Gender Information Value Date Recorded Sex Assigned at Not on file Legal Sex Male 1:43 PM POLE MAKER Gender Identity Not on file Sexual Orientation Not on file documented as of this encounter Plan of Treatment Upcoming Encounters Date Type Department Care Team (Late st Contact Info) Description 08/25/2025 8:00 AM CDT Hospital Encounter [facility] [address] [place] [address] Jeni Burns MD [address] [place] [address] [address] [place] [address] 08/25/2025 8:00 AM CDT - 08/25/2025 8:30 AM CDT Surgery [facility] [address] [place] [address] Jeni Burns MD [address] [facility] [address] [place] [address] COLONOSCOPY Scheduled Procedures Name Priority Associated Diagnoses Date/Ti me COLONOSCOPY Hx of colonic polyps Screening for colon cancer 08/25/2025 8:00 AM CDT documented as of this encounter Procedures Procedure Name Priority Date/Time Associated Diagnosis Comments DISCHARGE LABORATORY CUMULATIVE REPORT 06/01/2017 12:00 AM POLE MAKER DISCHARGE LABORATORY CUMULATIVE REPORT 06/01/2017 12:00 AM POLE MAKER documented in this encounter Results * DISCHARGE LABORATORY CUMULATIVE REPORT (06/01/2017 12:00 AM POLE MAKER) Narrative 06/01/2017 12:00 AM POLE MAKER Ordered by an unspecified provider. us Historical Provider LAB BLOOD ORDERABLES Savannah l Result * DISCHARGE LABORATORY CUMULATIVE REPORT (06/01/2017 12:00 AM POLE MAKER) Narrative 06/01/2017 12:00 AM POLE MAKER Ordered by an unspecified provider. us Historical Provider LAB BLOOD ORDERABLES Savannah l Result documented in this encounter Visit Diagnoses Not on filedocumented in this encounter Additional Health Concerns Infection Onset Date Last Indicated Resolved Time COVID19 04/10/2020 04/10/2020 05/01/2020 3:06 AM POLE MAKER COVID: Recovered Comment:Added based on recent COVID infection. 05/01/2020 05/01/2020 08/29/2020 3:06 AM C DT COVID: Suspected 04/15/2021 04/15/2021 04/15/2021 2:26 PM CDT COVID: Suspected 04/15/2021 04/15/2021 04/15/2021 9:05 PM CDT COVID: Suspected 06/26/2022 06/26/2022 06/26/2022 9:39 AM POLE MAKER COVID: Suspected 03/10/2023 03/10/2023 03/10/2023 4:57 PM CDT documented as of this encounter Care Teams Hand Quilter Relationship Specialty Start Date End Date Jimmy Cheek MD PCP - General 05/16/13 Minerva Garcia, [place] [address] [place] [address] [address] [place] [address] Chief Lending Officer 04/19/20 05/13/20 [place] [address] [facility] [address] [facility] [address] [place] [address] Surgeon Cardiothoracic Surgery 04/11/25 Oscar Islas MD [address] [facility] [address] [place] [address] Consulting Physician Cardiology 04/11/25 Miscellaneous, Not In File 04/11/25 documented as of this encounter
[2025-04-17 15:49] LABS: Hematocrit 29.2 % (37.0-46.0); Hemoglobin 9.4 g/dL (12.4-15.3); Immature Platelet Fraction Pct 0.9 % (1.0-7.0); Mean Corpuscular HGB Conc 32.2 g/dL (32-36); Mean Corpuscular Hemoglobin 31.3 pg (27.0-31.0); Mean Corpuscular Volume 97.3 fL (78.0-102.0); Platelet Count Result 521 K/mm3 (150-420); Red Blood Count 3.00 M/mm3 (4.70-6.10); White Blood Count 12.9 K/mm3 (4.8-10.8)
[2025-04-17 15:57] LABS: Alanine Aminotransferase 36 U/L (6-50); Albumin Level 4.0 g/dL (3.5-5.1); Alkaline Phosphatase 73 U/L (38-126); Anion Gap 8 mmol/L (4-12); Aspartate Amino Transferase 23 U/L (17-59); Bilirubin,Total 1.3 mg/dL (0.2-1.3); Blood Urea Nitrogen 26 mg/dL (9-20); Calcium 8.7 mg/dL (8.4-10.2); Carbon Dioxide 28 mmol/L (22-30); Chloride 103 mmol/L (98-107); Estimated Glomerular Filt Rate 52; Glucose 106 mg/dL (65-110); Osmolality Calculated 292 mOsm/kg (285-295); Potassium 4.3 mmol/L (3.4-5.0); Sodium 139 mmol/L (137-145); Total Protein 7.2 g/dL (6.3-8.2)
[2025-04-17 16:00] LABS: INR 1.1; Prothrombin Time 11.9 Seconds (9.50-12.1)
--- OUTSIDE RECORDS SUMMARY | 2025-06-09 18:00 | XMS_ITS | Clinical Summary ---
Author Organization Unknown Care Team Providers Care Video Production Intern Name Role Phone GLORIA SCRUGGS Unavailable Unavailable ISAI PHYSICAL THERAPIST, JESSICA Unavailabl e Unavailable ANGELINE DISPATCHER TUGBOAT, JODIE Unavail able Unavailable DILCIA REGISTERED NURSE ELIGIBILITY EXAMINER, LUCIA Jaclyn vailable Unavailable Payers Payer Name Policy Type Policy Number Effective Date Expira tion Date [employer] MEDICARE OON - EPISODIC NO AUTH SELF PAY - SECONDARY ([facility]) DEDUCTIBLE Problems Condition Name Condition Details Condition Category Status Onset Date Resolution Date Last Treatment Date Treating Clinician Comments ENCNTR FOR SURGICAL AFTCR FOLLOWING SURGERY ON THE CIRC SYS Active 2024-06 00:00: 00 PRESENCE OF AORTOCORONAR Y BYPASS GRAFT Active 2024-06 00:00: 00 ATHSCL HEART DISEASE OF [place] CORONARY ARTERY W/O ANG PCTRS Active 06-15 00:00: 00 ESSENTIAL (PRIMARY) HYPERTENSION Active 06-15 00:00: 00 HYPERLIPIDEM IA, UNSPECIFIED Active 06-15 00:00: 00 UNSPECIFIED OSTEOARTHRIT IS, UNSPECIFIED SITE Active 06-15 00:00: 00 OBESITY, UNSPECIFIED Active 06-15 00:00: 00 BODY MASS INDEX [BMI] 38.0-38.9, ADULT Active 06-15 00:00: 00 ENCOUNTER FOR THERAPEUTIC DRUG LEVEL MONITORING Active 06-15 00:00: 00 GROUP HOME (CURRENT) USE OF ANTICOAGULAN TS Active 06-15 00:00: 00 RESOURCES REPRESENTATIVE (CURRENT) USE OF ANTITHROMBOT ICS/ANTIPLAT ELETS Active 06-15 00:00: 00 HISTORY OF FALLING Active 06-15 00:00: 00 PRESENCE OF LEFT ARTIFICIAL HIP JOINT Active 06-15 00:00: 00 Allergies, Adverse Reactions, Alerts Allergy Name Allergy Type Status Severity Reaction(s) Onset Date Inactive Date Treating Clinician Comments HMG-COA REDUCTASE INHIBITORS Propensity to adverse reactions Active 2024-06 15:46: 48 DOXYCYCLINE Propensity to adverse reactions Active 2024-06 15:46: 56 Medications Ordered Medication Name Filled Medication Name Start Date Stop Date Current Medication? Ordering Clinician Indication Dosage Frequency Signature (SIG) Comments Components acetaminoph en 500 mg tablet 2024-06 00:00: 00 Yes [id number] PAIN 2 tablet EVERY 6 HOURS 2 tablet EVERY 6 HOURS (route: oral) Med Classific ation: Analgesic , Anti-infl ammatory or Antipyret ic Ambien 10 mg tablet 2024-06 00:00: 00 Yes [id number] SLEEP AID 1 tablet DAILY 1 tablet DAILY (route: oral) Med Classific ation: Central Nervous System Agents amiodarone 200 mg tablet 2024-06 00:00: 00 05-07 23:59 :00 No [id number] ARRHYTHMIAS Per instruc tions DIRECTED Per instructio ns DIRECTED (route: oral) Med Classific ation: Cardiovas cular Therapy Agents Eliquis 5 mg tablet 2024-06 00:00: 00 Yes [id number] BLOOD CLOT PREVENTION 1 tablet 2 TIMES DAILY 1 tablet 2 TIMES DAILY (route: oral) Med Classific ation: Hematolog ical Agents furosemide 40 mg tablet 2024-06 00:00: 00 04-18 23:59 :00 No [id number] FLUID RETENTION 1 tablet DAILY 1 tablet DAILY (route: oral) Med Classific ation: Cardiovas cular Therapy Agents loratadine 10 mg capsule 2024-06 00:00: 00 Yes [id number] ALLERGIES 1 capsule DAILY 1 capsule DAILY (route: oral) Med Classific ation: Respirato ry Therapy Agents methocarbam ol 500 mg tablet 2024-06 00:00: 00 04-18 23:59 :00 No [id number] MUSCLE SPASMS 1 tablet 3 TIMES DAILY 1 tablet 3 TIMES DAILY (route: oral) Med Classific ation: Locomotor System metoprolol succinate ER 25 mg tablet,exte nded release 24 hr 2024-06 00:00: 00 Yes [id number] HTN 1 tablet 2 TIMES DAILY 1 tablet 2 TIMES DAILY (route: oral) Med Classific ation: Cardiovas cular Therapy Agents Plavix 75 mg tablet 2024-06 00:00: 00 Yes [id number] BLOOD CLOT PREVENTION 1 tablet DAILY 1 tablet DAILY (route: oral) Med Classific ation: Hematolog ical Agents potassium chloride ER 20 mEq tablet,exte nded release 2024-06 00:00: 00 Yes [id number] SUPPLEMENT 1 tablet DAILY 1 tablet DAILY (route: oral) Med Classific ation: Electroly te Balance-N utritiona l Products Immunizations Ordered Immunization Name Filled Immunization Name Date Status Comments Refusal Reason INFLUENZA, TIV (INACTIVATED) 2025-04-11 00:00:00 PNEUMOCOCCAL (PPV), PPV 2023-03-15 00:00:00 Vital Signs Vital Name Observation Time Observation Value Commen ts Temperature 2025-04-17 14:13:00.000 97.7 [degF] Temperature 2025-04-12 13:47:00.000 98.7 [degF] BMI (%) 2025-04-12 13:47:00.000 38 kg/m2 Height 2025-04-12 13:47:00.000 74 [in_us] Pulse 2025-04-17 14:13:00.000 78 /min Pulse 2025-04-12 13:47:00.000 81 /min O2 Saturation (%) 2025-04-17 14:13:00.000 97 % O2 Saturation (%) 2025-04-12 13:47:00.000 93 % Respirations 2025-04-17 14:13:00.000 18 /min Respirations 2025-04-12 13:47:00.000 18 /min Weight (lbs) 2025-04-17 14:13:00.000 297 [lb_av] Weight (lbs) 2025-04-12 13:47:00.000 296 [lb_av] Systolic Blood Pressure 2025-04-17 14:13:00.000 120 mm [Hg] Systolic Blood Pressure 2025-04-12 13:47:00.000 124 mm [Hg] Diastolic Blood Pressure 2025-04-17 14:13:00.000 80 mm [Hg] Diastolic Blood Pressure 2025-04-12 13:47:00.000 82 mm [Hg] Plan of Treatment Planned Activity Planned Date Details Comments Future Scheduled Test [facility] TIFYING PHYSICIAN, ASSOCIATED PHYSICIAN, NPP OR PA WITHIN THE SAME GROUP MAY APPROVE AND SIGN THE ORDER (ON ANY PAGE) ATTESTING THAT THE COMPREHENSIVE OUTCOME ASSESSMENTS, EVALUATIONS, AND HOME HEALTH CERTIFICATION PLANS SUPPORT HOMEBOUND STATUS. HOME HEALTH WEB-PORTAL DOCUMENTATION ACCESSED BY THE PHYSICIAN MUST BE INCORPORATED INTO THE MEDICAL RECORD TO CORROBORATE THE PHYSICIAN, NPP, OR PA S F2F ENCOUNTER TO SUPPORT ELIGIBILITY FOR HOME HEALTH SERVICES. [code = THE CERTIFYING PHYSICIAN, ASSOCIATED PHYSICIAN, NPP OR PA WITHIN THE SAME GROUP MAY APPROVE AND SIGN THE ORDER (ON ANY PAGE) ATTESTING THAT THE COMPREHENSIVE OUTCOME ASSESSMENTS, EVALUATIONS, AND HOME HEALTH CERTIFICATION PLANS SUPPORT HOMEBOUND STATUS. HOME HEALTH WEB-PORTAL DOCUMENTATION ACCESSED BY THE PHYSICIAN MUST BE INCORPORATED INTO THE MEDICAL RECORD TO CORROBORATE THE PHYSICIAN, NPP, OR PA S F2F ENCOUNTER TO SUPPORT ELIGIBILITY FOR HOME HEALTH SERVICES.] Future Scheduled Test EACH ORDER ED IN-HOME OR TELEHEALTH VISIT, THE SKILLED NURSE WILL CONDUCT A COMPREHENSIVE ASSESSMENT INCLUDING VITAL SIGNS, PAIN, SAFETY, MENTAL/COGNITIVE/PSYCHOSOCIAL STATUS, MED MANAGEMENT, NUTRITION, SKIN INTEGRITY, PRESSURE ULCER PREVENTION, AND PATIENT/CAREGIVER ABILITY TO SUPPORT ORDERED CARE. SKILLED NURSE WILL INSTRUCT ON DISEASE PROCESS, MED MGMT., FALL PREVENTION AND SAFETY, INFECTION CONTROL AND PREVENTION, WARNING SIGNS, ADDRESS RESULTS OUTSIDE OF ORDERED PARAMETERS LISTED ON CARE PLAN, AND COORDINATE DISCHARGE WITH THE TREATING PROVIDER. MAY ACCEPT ORDERS FROM THE FOLLOWING PROVIDER(S) WHO WILL BE CONSULTING ON THE CERTIFIED CARE PLAN: DR. SCRUGGS, DR. NAIK, DR. ALBRIGHT, DR. TURNER, DR. ESTRADAANY COVERING PHYSICIAN MAY GIVE ORDERS TO AGENCY [code = EACH ORDERED IN-HOME OR TELEHEALTH VISIT, THE SKILLED NURSE WILL CONDUCT A COMPREHENSIVE ASSESSMENT INCLUDING VITAL SIGNS, PAIN, SAFETY, MENTAL/COGNITIVE/PSYCHOSOCIAL STATUS, MED MANAGEMENT, NUTRITION, SKIN INTEGRITY, PRESSURE ULCER PREVENTION, AND PATIENT/CAREGIVER ABILITY TO SUPPORT ORDERED CARE. SKILLED NURSE WILL INSTRUCT ON DISEASE PROCESS, MED MGMT., FALL PREVENTION AND SAFETY, INFECTION CONTROL AND PREVENTION, WARNING SIGNS, ADDRESS RESULTS OUTSIDE OF ORDERED PARAMETERS LISTED ON CARE PLAN, AND COORDINATE DISCHARGE WITH THE TREATING PROVIDER. MAY ACCEPT ORDERS FROM THE FOLLOWING PROVIDER(S) WHO WILL BE CONSULTING ON THE CERTIFIED CARE PLAN: DR. SCRUGGS, DR. NAIK, DR. ALBRIGHT, DR. TURNER, DR. ESTRADAANY COVERING PHYSICIAN MAY GIVE ORDERS TO AGENCY] Future Scheduled Test HOME HEALT H NURSE WILL TEACH PATIENT/CAREGIVER ABOUT CARE FOR THE INCISIONS, 10LB WEIGHT RESTRICTIONS, DRIVING RESTRICTIONS, HOW TO WEIGH SELF DAILY AND MANAGE RESULTS ON A LOG, AND WARNING SIGNS ON WHEN TO CALL THE AGENCY, PHYSICIAN, OR 911. [code = HOME HEALTH NURSE WILL TEACH PATIENT/CAREGIVER ABOUT CARE FOR THE INCISIONS, 10LB WEIGHT RESTRICTIONS, DRIVING RESTRICTIONS, HOW TO WEIGH SELF DAILY AND MANAGE RESULTS ON A LOG, AND WARNING SIGNS ON WHEN TO CALL THE AGENCY, PHYSICIAN, OR 911.] Future Scheduled Test SKILLED NU RSE/THERAPY TO ADMINISTER AND INSTRUCT PATIENT/CAREGIVER ON SURGICAL INCISION CARE TO STERNUM AND RIGHT LOWER LEG. PATIENT MAY ALLOW SOAP AND WATER TO RUN OVER INCISIONS AND PAT DRY WITH TOWEL. LEAVE OPEN TO AIR AND MONITOR DAILY FOR SIGNS AND SYMPTOMS OF INFECTION. DISCONTINUE WOUND CARE, ASSESSMENT AND SUPPLIES WHEN WOUND HEALS. PATIENT/CAREGIVER TO PERFORM WOUND CARE IN AGENCY ABSENCE AFTER APPROPRIATE RETURN DEMONSTRATION. [code = SKILLED NURSE/THERAPY TO ADMINISTER AND INSTRUCT PATIENT/CAREGIVER ON SURGICAL INCISION CARE TO STERNUM AND RIGHT LOWER LEG. PATIENT MAY ALLOW SOAP AND WATER TO RUN OVER INCISIONS AND PAT DRY WITH TOWEL. LEAVE OPEN TO AIR AND MONITOR DAILY FOR SIGNS AND SYMPTOMS OF INFECTION. DISCONTINUE WOUND CARE, ASSESSMENT AND SUPPLIES WHEN WOUND HEALS. PATIENT/CAREGIVER TO PERFORM WOUND CARE IN AGENCY ABSENCE AFTER APPROPRIATE RETURN DEMONSTRATION.] Future Scheduled Test SKILLED NU RSE TO OBTAIN CBC WITHOUT DIFF, PT/INR, CMP PER VENIPUNCTURE USING NECESSARY SUPPLIES FOR DIAGNOSIS OF I25.188 ON WEEK OF 04/16/25 WITH RESULTS FAXED TO DR[address] NAIK S OFFICE [phone] [code = SKILLED NURSE TO OBTAIN CBC WITHOUT DIFF, PT/INR, CMP PER VENIPUNCTURE USING NECESSARY SUPPLIES FOR DIAGNOSIS OF I25.188 ON WEEK OF 04/16/25 WITH [address]ULTS FAXED TO DR. NAIK S OFFICE [phone]] Future Scheduled Test SKILLED NU RSE TO INSTRUCT PATIENT/CAREGIVER ON WHAT IS HYPERTENSION, HOW TO CHECK HIS/HER BLOOD PRESSURE, AND STRATEGIES TO USE TO CONTROL BLOOD PRESSURE SUCH MONITORING BP, MONITORING WEIGHTS, ENGAGING IN PHYSICAL ACTIVITY AIMING FOR 150 MINUTES SPREAD THROUGHOUT THE WEEK. [code = SKILLED NURSE TO INSTRUCT PATIENT/CAREGIVER ON WHAT IS HYPERTENSION, HOW TO CHECK HIS/HER BLOOD PRESSURE, AND STRATEGIES TO USE TO CONTROL BLOOD PRESSURE SUCH MONITORING BP, MONITORING WEIGHTS, ENGAGING IN PHYSICAL ACTIVITY AIMING FOR 150 MINUTES SPREAD THROUGHOUT THE WEEK.] Future Scheduled Test HOME HEALT H NURSE WILL ASSESS FOR COMPLICATIONS RELATED TO ANTICOAGULATION AND ANTIPLATELET USE AND INSTRUCT PATIENT/CAREGIVER ABOUT PRECAUTIONS TO FOLLOW AND SIGNS/SYMPTOMS TO REPORT. [code = HOME HEALTH NURSE WILL ASSESS FOR COMPLICATIONS RELATED TO ANTICOAGULATION AND ANTIPLATELET USE AND INSTRUCT PATIENT/CAREGIVER ABOUT PRECAUTIONS TO FOLLOW AND SIGNS/SYMPTOMS TO REPORT.] Future Scheduled Test PHYSICAL T HERAPIST TO EVALUATE AND TREAT [code = PHYSICAL THERAPIST TO EVALUATE AND TREAT] Goal Patient Goal - S OC- 04/12/25- GET STRONGER AND STAY OUT OF THE HOSPITAL Goal Provider Goal - PATIENT/CAREGIVER WILL DEMONSTRATE PROPER CARE FOR INCISIONS, ADHERENCE TO DRIVING RESTRICTIONS, ADHERENCE OF ACTIVITY RESTRICTIONS, CONSISTENT MANAGEMENT OF DAILY WEIGHTS WITH USE OF A LOG TO TRACK RESULTS. PATIENT/CAREGIVER WILL VERBALIZE UNDERSTANDING OF WARNING SIGNS TO CALL PHYSICIAN OR 911 BY THE END OF HOME SERVICES. Goal Provider Goal - PATIENT/CAREGIVER WILL DEMONSTRATE APPROPRIATE INCISIONAL CARE. INCISION / SUTURE LINE IMPROVE EVIDENCED BY DECREASE IN SIZE / DRAINAGE OF WOUND, NO SIGNS AND SYMPTOMS OF INFECTION, DECREASED PAIN, HEALING IS PROGRESSING BY DISCHARGE. Goal Provider Goal - PATIENT/CAREGIVER WILL VERBALIZE UNDERSTANDING OF THE NEED TO COLLECT THE LAB AND TOLERATE THE LAB COLLECTION PROCEDURE WITHOUT INJURY OR INFECTION. Goal Provider Goal - PATIENT/CAREGIVER WILL INDEPENDENTLY DEMONSTRATE HOW TO CHECK HIS/HER OWN BP AND VERBALIZE WHAT STRATEGIES CAN ASSIST TO CONTROL BLOOD PRESSURE. Goal Provider Goal - PATIENT/CAREGIVER WILL VERBALIZE UNDERSTANDING OF ANTICOAGULATION AND ANTIPLATELET COMPLICATIONS TO REPORT AND PRECAUTIONS TO FOLLOW BY END OF HOME HEALTH SERVICES. Goal Provider Goal - Goal Provider Goal - A PLAN OF CARE WILL BE ESTABLISHED THAT MEETS ALL PATIENT'S INTERMEDIATE NEEDS AND COUNTER SIGNED BY PHYSICIAN. Goal Provider Goal - PATIENT WILL BE FREE OF FALLS AND HOSPITALIZATIONS THROUGHOUT EPISODE OF CARE. PATIENT/CAREGIVER WILL UNDERSTAND AND ADHERE TO ORDERED DIET. PATIENT/CAREGIVER WILL INDEPENDENTLY MANAGE MEDICATIONS, UNDERSTAND ANY CHANGES, SIDE EFFECTS TO REPORT BY DISCHARGE. PATIENT WILL BE FREE OF INFECTION AND UNDERSTAND MEASURES OF PREVENTION. PATIENT/CAREGIVER WILL COLLABORATE WITH SKILLED NURSE TO DEVELOP POC AT SOC AND ON AN ONGOING BASIS UPDATES ARE NEEDED. UNDERSTAND PROGRESS MADE/DISCHARGE PLANNING. ADDITIONAL ORDERS WILL BE RECEIVED FROM ALTERNATE PHYSICIANS IN A TIMELY MANNER. Encounters Start Date/Time End Date/Time Encounter Type Admission Type Attending [facility] Facility Care Department Encounter ID Discharge Date Discharge Status Discharge Condition Discharge Reason Percent Goals Met 2025-04-12 00:00:00 2025-06-10 00:00:00 Outpatient NEW ADMISSION LUCIA HA [facility] [id number]
== END 2025-04-17 15:14 | disposition home or self-care (01) ==
LOC: CHSLAB 15:21
DX: Z95.1 Presence of aortocoronary bypass graft (principal); I25.10 Atherosclerotic heart disease of native coronary artery without angina pectoris; I11.0 Hypertensive heart disease with heart failure; I50.9 Heart failure, unspecified
CPT/HCPCS: 36415; 80053; 85027; 85055; 85610